=== PATIENT | female | born 1975 | race Caucasian/White ===

== ENCOUNTER 2023-11-13 09:57 | Outpatient (OUT) | payer OTHER, SELFPAY ==
--- NOTE | 2023-11-13 10:09 | MM_ITS ---
Patient Name: YOKASTA BALLESTEROS MR#: [id number] : 1975 Exam Date: 11/13/2023 Ordering Doctor: DR Fareed Rodriges . RADIOLOGY REPORT PROCEDURE: MM TOMOSYNTHESIS SCREENING BI COMPARISON: MG MAMM SCREEN 3D MELQUIADES CAD, 08/27/2022. MG MAMM SCREEN 3D MELQUIADES CAD, 08/17/2021. MG MAMM SCREEN 3D MELQUIADES CAD, 08/16/2020. MG MAMM MELQUIADES DIAG W CAD DIG, 02/05/2008. INDICATIONS: Screening Calculator Name NCI Breast Cancer Risk Assessment Tool 5 Year Breast Cancer Risk 0.80% Lifetime Breast Cancer Risk 8.50% Personal Breast Cancer No Personal Ovarian Cancer No Treatments None Family Cancers None LOCATION: [facility] BREAST COMPOSITION: The breasts are heterogeneously dense,which may obscure small masses. FINDINGS: DIAGNOSTIC CATEGORY 2--BENIGN FINDING: RIGHT BREAST: No significant suspicious finding. Stable, chronic asymmetry within posterior upper-outer quadrant. No significant change has occurred. LEFT BREAST: No significant suspicious finding. No significant change has occurred. RECOMMENDATIONS: ROUTINE MAMMOGRAM AND CLINICAL EVALUATION IN 12 MONTHS. PLEASE NOTE: A NORMAL MAMMOGRAM DOES NOT EXCLUDE THE POSSIBILITY OF BREAST CANCER. A CLINICALLY SUSPICIOUS PALPABLE LUMP SHOULD BE BIOPSIED. Dictated by: Derrell Sheldon M.D. on 11/14/2023 at 09:09 Approved by: Derrell Sheldon M.D. on 11/14/2023 at 09:15
== END 2023-11-13 09:58 | disposition home or self-care (01) ==
LOC: MAMMO 10:05
PROVIDERS: PCP Family Medicine; Visit Provider Obstetrics & Gynecology
DX: Z01.419 Encounter for gynecological examination (general) (routine) without abnormal findings (principal); Z12.31 Encounter for screening mammogram for malignant neoplasm of breast
CPT/HCPCS: 77063; 77067; 87624; 88175

== ENCOUNTER 2023-11-13 19:39 | Outpatient (REF) | payer OTHER, SELFPAY | END 2023-11-13 19:40 | disposition home or self-care (01) | LOC: LAB 19:39 | PROVIDERS: PCP Family Medicine; Visit Provider Obstetrics & Gynecology | DX: Z01.419 Encounter for gynecological examination (general) (routine) without abnormal findings (principal) | CPT/HCPCS: 87624; 88175 ==

== ENCOUNTER 2024-12-09 15:00 | Outpatient (REF) | payer OTHER, SELFPAY ==
--- OUTSIDE RECORDS SUMMARY | 2024-12-02 20:55 | XMS_ITS | Continuity of Care Document ---
Author Organization [facility] Address [address] [place] [address] Phone Care Team Providers Care Provider Relations Rep Name Role Phone Al Bowie MD Primary Care Provider [phone] Self, Referral Attending Provider Unavailable Care Teams Patient Care Team Team Status: Active Member Role Status Dates Al Bowie MD Primary Care Provider Active Visit Care Team Team Status: Inactive Member Role Status Dates Al Bowie MD Primary Care Provider Active Start: December 02, 2024 End: December 02, 2024 Referral Self Attending Provider Active Start: Paulo avila 2024 End: December 02, 2024 Chief Complaint and Reason for Visit Chief Complaint Admit Date Screening December 02, 2024 9:08a m Allergies, Adverse Reactions, Alerts Allergen Type Severity Reaction Last Updated Verified Status celecoxib Allergy Unknown rash June 29, 2024 11:21am Yes Active meperidine Allergy Unknown rash June 29, 2024 11:21am Yes Active Sulfa (Sulfonamide Antibiotics) Allergy Unknown rash June 29 11:21am Yes Active Social History Smoking Status Status Start Date End Date Date of Observa tion Never smoked tobacco (finding) December 18, 2023 5:55am Observation Status Observation Response Date of Response Legal Sex Female (finding) Sex Assigned At Female 1975 Family History Relationship Condition Age at Onset Recorded Date/T madhu father Arthritis Unknown mother Arthritis Unknown Heart disease Unknown Hypertension Unknown History of heart surgery Unknown Rheumatoid arthritis Unknown Problems Active Problems Medical Problem Onset Date Status Impingement syndrome of right shoulder Unknown Active Right rotator cuff tear Unknown Active Anxiety Unknown Active Internal derangement of right shoulder Unknown Active Varicose veins of both lower extremities Unknown Active Right shoulder pain Unknown Active Medications Medication Status Dose Units Route Directions Qty Days St art Date Stop Date End Date Instructions Adherence Oxycodone-A cetaminophe n (Percocet) 5-325 mg tablet Discont inued 1 TAB PO EVERY 4-6 HOURS as needed for pain 20 5 December 17, 2023 [facility] 2023 9:05a m Dispense quantity of twenty tablets Z98.890 post op Cephalexin 500 mg capsule Discont inued 500 MG PO Every 8 hours 6 2 December 17, 2023 12:00a m December 24, 2023 9:20a m Ascorbic Acid (Vitamin C) (Vitamin C) 500 mg capsule, extended release Discont inued 500 MG PO Every morning November 27, 2023 12:00a m December 24, 2023 9:20a m Turmeric 400 mg capsule Discont inued 400 MG PO Every morning November 27, 2023 12:00a m [facility] 2023 9:05a m Cholecalcif azra (Vitamin D3) (Vitamin D3) 25 mcg (1,000 unit) tablet Discont inued 25 MCG PO Every morning November 27, 2023 12:00a m December 24, 2023 9:20a m Diclofenac Sodium 75 mg tablet,ari yed release (DR/EC) Discont inued 75 MG PO July 29, 2023 1:00am November 27, 2023 10:00 am Acetaminoph en 500 mg capsule Discont inued 1 CAP PO Every 6 hours August 19, 2023 12:00a m November 27, 2023 10:00 am FreeTextSi capsule as needed Orally every 6 hrs; Note: Source Status: Taking; Provider: Sweetie Burdick ( ) Ibuprofen 600 mg tablet Active 600 MG PO Three times daily as needed for pain August 19, 2023 12:00a m Unknown Diclofenac Sodium 75 mg tablet,ari yed release (DR/EC) Discont inued 75 MG PO Twice daily August 19, 2023 12:00a m November 27, 2023 10:00 am FreeTextSi tablet as needed Orally Twice a day; Note: Source Status: Start; Refills: 2; Provider: Sweetie Lopez Medical Equipment Device Date Implanted Device Details Tendon/ligament bone anchor, bioabsorbable December 18, 2023 JONH: [id number] Issuing Agency: [employer] Device Id: [id number] Expiration Date: 2027-04-25 Lot Number: [id number] Procedures Procedure Date Performed Status MM screening mammo BI w/CAD December 02, 2024 9:11a m completed Relevant Diagnostic Tests and/or Laboratory Data Diagnostic Imaging Reports Author Donell Saleh [facility] Report Date/Time December 02, 2024 10:59 am [facility] [address] [place] [address] Mammography Report Signed Patient: Lissa Zheng MR#: [id number] : 1975 Acct:[id number] Age/Sex: 49 / F Adm Date: 5 Loc: [place] Room: Type: [facility] Attending Dr: Referral Self Ordering Provider: RACHEL,REFERRAL Date of Service: 12/02/24 Procedure(s): MM screening mammo BI w/CAD Accession Number(s): ([id number]) MM/MM screening mammo BI w/CAD: SCREENING Copies to: SELF,REFERRAL Al Bowie MD~ CLINICAL DATA: Screening for malignancy. BILATERAL SCREENING MAMMOGRAMS - FULL FIELD DIGITAL WITH TOMOSYNTHESIS AND CAD Tomosynthesis craniocaudal and mediolateral oblique views of both breasts were obtained using low-dose digital technique. Comparison is made to prior studies from 11/13/2023 and 08/27/2022. This examination was reviewed with the aid of CAD. There are scattered fibroglandular densities. Benign-appearing lymph nodes noted along the right chest wall. Benign-appearing calcifications are present. There is a similar focal asymmetry on the right. There are no dominant masses, typically malignant calcifications or architectural distortion. There has been no significant interval change. MM/MM screening mammo BI w/CAD IMPRESSION: NO MAMMOGRAPHIC EVIDENCE OF MALIGNANCY. ROUTINE FOLLOW-UP IS RECOMMENDED IN ONE YEAR. RESULT CODE: 2 Benign Findings(s) DENSITY CODE: 2 (approximately 25-50% glandular) There are scattered areas of fibroglandular density. FOLLOW UP: 1YR The false-negative rate of mammography is approximately 10-percent. Management of a palpable abnormality must be based on clinical grounds. Patient was entered into a reminder system with a target due date for the next mammogram. Impression dictated by: Donell Saleh M.D. 12/02/2024 10:59 AM Dictation Location: [facility] Dictated By: Donell Saleh II, MD 12/02/24 1054 Signed By: <Electronically signed by Donell Saleh II, MD in OV> 12/02/24 1059 Advance Directives Advance Directive Response Recorded Date/ Time Advance Directives No August 20, 023 6:00pm Insurance Providers Guarantor Lissa Zheng Address [address] [address] Contact Info. Home Phone: Payer Policy Id Subscriber's Name Subscriber Id Effectiv e Date Expiration Date [employer] Claims [id number] Abelardo Zheng [id number] Encounters Encounter Location(s) Arrival/Admit Date Discharge/Depart Date Provider(s) [facility]ed [facility] December 02, 2024 9:08am December 02, 2024 9:09am REFERRAL SELF
--- OUTSIDE RECORDS SUMMARY | 2024-12-08 20:27 | XMS_ITS | Continuity of Care Document ---
Author Name [facility] Organization [facility] Care Team Providers Care Looping Machine Operator Name Role Phone [facility] Unavailable Unavailable Social History Combined list of available smoking, tobacco, and other social history from Department of Defense and Veterans Affairs facilities. Social History Type Response Date Comment Sourc e This section is an empty social history section. [facility]
--- OUTSIDE RECORDS SUMMARY | 2024-12-09 13:00 | XMS_ITS | Encounter Summary ---
Author Organization [facility] Address [address] [place] [address] Care Team Providers Care Meat Packager Name Role Phone Unavailable Primary Care Provider Unavailabl e Reason for Visit * Reason Comments Gynecologic Exam Encounter Details Date Type Department Care Team (Late st Contact Info) Description 12/09/2024 1:00 PM EDT Office Visit [facility] [address] [place] [phone] Eduarda Paul PA [address] [place], [facility] Well woman exam with routine gynecological exam; Breast cancer screening by mammogram; H/O: hysterectomy; Pelvic pain in female; Anxiety, generalized Social History Tobacco Use Types Packs/Day Years Used Date Smoking Tobacco: Never Alcohol Use Standard Drinks/Week Comments Never 0 (1 standard drink = 0.6 oz pure alcohol) Caffeine intake: 2-3 cups per day Comments No Sex and Gender Information Value Date Recorded Sex Assigned at Not on file Legal Sex Female 7:25 PM EDT Gender Identity Not on file Sexual Orientation Not on file documented as of this encounter Last Filed Vital Signs Vital Sign Reading Time Taken Comments Blood Pressure 124/78 12/09/2024 1:14 PM EDT Pulse - - Temperature - - Respiratory Rate - - Oxygen Saturation - - Inhaled Oxygen Concentration - - Weight 111 kg (244 lb) 12/09/2024 1:14 PM EDT Height 165.1 cm (5' 5 ) 12/09/2024 1:14 PM EDT Body Mass Index 40.6 12/09/2024 1:14 PM EDT documented in this encounter Progress Notes * AMELIA Jefferson - 12/09/2024 1:00 PM EDT Reason for Appointment: Patient ID: Lissa Zheng is a 49 y.o. female who presents for Gynecologic Exam Patient presents today for Annual Exam. MEDICATIONS No current outpatient medications ALLERGIES Allergies Allergen Reactions Latex Rash Other Reaction(s): Unknown Cefprozil Other Reaction(s): Unknown Gabapentin Other Reaction(s): Unknown Medroxyprogesterone Other Reaction(s): Unknown Meloxicam Other Reaction(s): Unknown Naproxen Other Reaction(s): Unknown Sulfamethoxazole-Trimethoprim Other Reaction(s): Unknown Sulfur Celecoxib Rash Other Reaction(s): rash, Unknown Meperidine Rash Other Reaction(s): rash Meperidine Hcl Rash Other Reaction(s): Unknown Sulfa Antibiotics Rash Other Reaction(s): rash PROBLEMS Active Ambulatory Problems Diagnosis Date Noted No Active Ambulatory Problems Resolved Ambulatory Problems Diagnosis Date Noted No Resolved Ambulatory Problems Past Medical History: Diagnosis Date Abdominal cramping Anxiety Dysmenorrhea Encounter for preoperative assessment H/O LEEP Menorrhagia Menorrhagia with irregular cycle Obesity (BMI 30-39.9) S/P tubal ligation Superficial phlebitis and thrombophlebitis of right lower extremity Thrombophlebitis of superficial veins of left lower extremity Varicose veins of bilateral lower extremities with pain HISTORY PAST MEDICAL HISTORY SOCIAL HISTORY Past Medical History: Diagnosis Date Abdominal cramping Anxiety Dysmenorrhea Encounter for preoperative assessment H/O LEEP Menorrhagia Menorrhagia with irregular cycle Obesity (BMI 30-39.9) S/P tubal ligation Superficial phlebitis and thrombophlebitis of right lower extremity Thrombophlebitis of superficial veins of left lower extremity Varicose veins of bilateral lower extremities with pain Social History Tobacco Use Smoking status: Never Smokeless tobacco: Not on file Substance Use Topics Alcohol use: Never Comment: Caffeine intake: 2-3 cups per day Drug use: Never FAMILY HISTORY Family History Problem Relation Name Age of Onset Heart disease Mother Diabetes Maternal Grandmother Heart disease Maternal Grandfather Diabetes Paternal Grandmother SURGICAL HISTORY Past Surgical History: Procedure Laterality Date APPENDECTOMY 03/2009 ENDOMETRIAL ABLATION 09/2020 EVLT Left 07/2020 HYSTERECTOMY 09/27/2022 KNEE SURGERY Left 2007 OTHER SURGICAL HISTORY Left 2003 metal danette in L arm OTHER SURGICAL HISTORY Bilateral 08/2020 Varithena/microfoam chemical ablation TUBAL LIGATION 2017 REVIEW OF SYSTEMS Review of Systems: Review of Systems Constitutional: Negative. HENT: Negative. Eyes: Negative. Respiratory: Negative. Cardiovascular: Negative. Gastrointestinal: Negative. Genitourinary: Negative. Musculoskeletal: Negative. Skin: Negative. Neurological: Negative. All other systems reviewed and are negative. Hematological: Negative. Endocrine: Negative. Allergic/Immunologic: Negative. OBJECTIVE Objective: Physical Exam Constitutional: Appearance: Normal appearance. She is well-developed. Genitourinary: Vulva normal. Right Adnexa: not tender and no mass present. Left Adnexa: not tender and no mass present. No cervical discharge. Breasts: Breasts are soft. Right: Normal. Left: Normal. HENT: Head: Normocephalic. Nose: Nose normal. Mouth/Throat: Mouth: Mucous membranes are moist. Cardiovascular: Rate and Rhythm: Normal rate and regular rhythm. Pulmonary: Effort: Pulmonary effort is normal. Breath sounds: Normal breath sounds. Abdominal: General: Bowel sounds are normal. There is no distension. Palpations: Abdomen is soft. Tenderness: There is no abdominal tenderness. There is no guarding or rebound. Musculoskeletal: General: No swelling. Normal range of motion. Cervical back: Normal range of motion. Right lower leg: No edema. Left lower leg: No edema. Neurological: General: No focal deficit present. Mental Status: She is alert and oriented to person, place, and time. Skin: General: Skin is warm and dry. Psychiatric: Mood and Affect: Mood normal. Behavior: Behavior normal. Vitals and nursing note reviewed. Exam conducted with a wood shop teacher present. Vitals: Estimated body mass index is 40.6 kg/m² as calculated from the following: Height as of this encounter: 5' 5 . Weight as of this encounter: 244 lb. BP: 124/78 No LMP recorded (lmp unknown). Patient has had a hysterectomy. ASSESSMENT & PLAN ICD-10-CM 1. Well woman exam with routine gynecological exam Z01.419 THIN PREP TIS PAP AND HR HPV DNA 2. Breast cancer screening by mammogram Z12.31 CANCELED: Bilateral screening mammogram CANCELED: Bilateral screening mammogram 3. H/O: hysterectomy Z90.710 Annual: Patient presents today for an annual exam. Patient states she is doing well and has complaints of vaginal pressure. Symptoms are constant. Urology told her to come see us.Pt has had hysterectomy 09/26/2022. Pt has not had a colonoscopy. Recommended that pt should get that done to see if it is gastro related. Pt wondering if she is going through menopausal. Pap was obtained without difficulty and patient had her mammogram done on 12/02/2024 with negative results. Patient complains of intermittent cramping muscle spasm pain to lower pelvic region, she has history of several abdominal surgeries including hysterectomy, appendectomy and bladder tumor excision. Patients pain is not reproducible today. We will order US of abdomen for pelvic pain and pt will follow up with Dr Rodriges for possible dx lap and lyse of adhesions. Patient also experiencing grief and depression and also some vasomotor symptoms including difficulty sleeping and concentrating, hormone replacement was discussed as well as trying ssri, celexa. Pt allergic to sulfa so effexor was not started. Patient agrees wit plan of care and will follow up inceUS complete No orders of the defined types were placed in this encounter. Follow Up: Patient is to return in one year for annual unless needed otherwise. Documented by Enid Laughlin MA on behalf of: AMELIA Jefferson documented in this encounter Plan of Treatment Upcoming Encounters Date Type Department Care Team (Late st Contact Info) Description 12/13/2025 2:00 PM EDT Procedure Visit [facility] [address] [place] [phone] Eduarda Paul PA [address] [place] [address] Scheduled Orders Name Type Priority Associated Diagnoses Orde r Schedule THIN PREP TIS PAP AND HR HPV DNA Pathology and Cytology Routine Well woman exam with routine gynecological exam Ordered: 12/09/2024 US Pelvis w/ TV Imaging Routine Pelvic pain in female Expected: 12/09/2024, Expires: 06/11/2025 documented as of this encounter Visit Diagnoses Diagnosis Well woman exam with routine gynecological exam Routine gynecological examination Breast cancer screening by mammogram H/O: hysterectomy Acquired absence of both cervix and uterus Pelvic pain in female Unspecified symptom associated with female genital organs Anxiety, generalized documented in this encounter
--- OUTSIDE RECORDS SUMMARY | 2024-12-09 15:03 | XMS_ITS | Encounter Summary ---
Author Organization [facility] Address [address] [place] [address] Care Team Providers Care Apple Turner Name Role Phone Unavailable Primary Care Provider Unavailabl e Encounter Details Date Type Department Care Team (Late st Contact Info) Description 12/09/2024 Bamboo flowsheet [facility] [address] [facility] [place] [address] Eduarda Paul PA [address] [place] [address] [place], [place] [address] Social History Tobacco Use Types Packs/Day Years [...] on file documented as of this encounter Plan of Treatment Upcoming Encounters Date Type Department Care Team (Late st Contact Info) Description 12/13/2025 2:00 PM EDT Procedure Visit [facility] [address] [facility] [place] [address] Eduarda Paul PA [address] [place], [facility]11 documented as of this encounter Visit Diagnoses Not on filedocumented in this encounter
--- OUTSIDE RECORDS SUMMARY | 2024-12-09 15:04 | XMS_ITS | Encounter Summary ---
Author Organization [facility] Address [address] [place] [address] Care Team Providers Care Well Servicing Rig Operator Name Role Phone Unavailable Primary Care Provider Unavailabl e Encounter Details Date Type Department Care Team (Late st Contact Info) Description 11/19/2023 Orders Only [facility] [address] [place] [address] Bibiana Lombardo LPN [address] [facility] [address] [place] [address] Social History Tobacco Use Types Packs/Day Years Used Date Smoking Tobacco: Never Alcohol Use Standard Drinks/Week Comments Never 0 (1 standard drink = 0.6 oz pure alcohol) Caffeine intake: 2-3 cups per day Comments Unknown Sex and Gender Information Value Date Recorded Sex Assigned at Not on file Legal Sex Female 7:25 PM EDT Gender Identity Not on file Sexual Orientation Not on file documented as of this encounter Plan of Treatment Upcoming Encounters Date Type Department Care Team (Late st Contact Info) Description 12/13/2025 2:00 PM EDT Procedure Visit [facility] [address] [place] [address] Eduarda Paul PA [address] [facility] [address] [place], [facility]11 documented as of this encounter Procedures Procedure Name Priority Date/Time Associated Diagnosis Comments PAP SMEAR Routine 11/13/2023 12:00 AM EDT documented in this encounter Results * Pap Smear (11/13/2023 12:00 AM EDT) Swab Cervical swab / Unknown us Zahira Nurse [facility] LAB CYTOLOGY ORDERABLES Final Result EXTERNAL LAB documented in this encounter Visit Diagnoses Not on filedocumented in this encounter
--- OUTSIDE RECORDS SUMMARY | 2024-12-09 15:04 | XMS_ITS | Clinical Summary ---
Author Organization [facility] Address [address] [place] [address] Care Team Providers Care Channel Program Manager Name Role Phone Unavailable Primary Care Provider Unavailabl e Allergies Active Allergy Reactions Criticality Noted Date Comments Cefprozil 12/09/2024 Other Reaction(s): Unknown Celecoxib Rash Low 08/29/2020 Other Reaction(s): rash, Unknown Gabapentin 11/13/2023 Other Reaction(s): Unknown Latex Rash High 11/09/2022 Other Reaction(s): Unknown Medroxyprogesterone 11/13/2023 Other Reaction(s): Unknown Meloxicam 12/09/2024 Other Reaction(s): Unknown Meperidine Rash Low 08/29/2020 Other Reaction(s): rash Meperidine Hcl Rash Low 12/09/2024 Other Reaction(s): Unknown Naproxen 12/09/2024 Other Reaction(s): Unknown Sulfa Antibiotics Rash Low 11/09/2022 Other Reaction(s): rash Sulfamethoxazole-Trimethoprim 2024 Other Reaction(s): Unknown Sulfur 08/29/2020 Medications citalopram (CeleXA) 20 MG tabletIndication s:Anxiety, generalized Take 1 tablet (20 mg) by mouth Daily 30 tablet 11 5 12/10/19 26 Active omeprazole (PriLOSEC) [address] capsule Take 20 mg by mouth in the morning. Take before meals. 3 12/10/19 25 Discontinu ed(Therapy completed) cephalexin (Keflex) 500 MG capsule Take 500 mg by mouth in the morning and 500 mg before bedtime. 3 12/10/19 Discontinu ed(Therapy completed) solifenacin (VESIcare) 10 MG tablet Take 10 mg by mouth in the morning. 3 12/10/19 Discontinu ed(Therapy completed) diclofenac (Voltaren) 75 MG EC tablet Twice daily 4 12/10/19 Discontinu ed(Therapy completed) Encounters Date Type Department Care Team Description 12/09/2024 1:00 PM EDT Office Visit [facility] [address] [place] [address] Eduarda Paul PA Well woman exam with routine gynecological exam; Breast cancer screening by mammogram; H/O: hysterectomy; Pelvic pain in female; Anxiety, generalized 12/09/2024 Bamboo flowsheet [facility] [address] [address] Eduarda Paul PA from Last 3 Months Family History Medical History Relation Name Comments Heart disease Maternal Grandfather Diabetes Maternal Grandmother Heart disease Mother Diabetes Paternal Grandmother Relation Name Status Comments Maternal Grandfather Maternal Grandmother Mother Paternal Grandmother Social History Tobacco Use Types Packs/Day Years Used Date Smoking Tobacco: Never Tobacco Cessation:Counseling Given: Not Answered Alcohol Use Standard Drinks/Week Comments Never 0 (1 standard drink = 0.6 oz pure alcohol) Caffeine intake: 2-3 cups per day Comments No Sex and Gender Information Value Date Recorded Sex Assigned at Not on file Legal Sex Female 7:25 PM EDT Gender Identity Not on file Sexual Orientation Not on file Last Filed Vital Signs Vital Sign Reading Time Taken Comments Blood Pressure 124/78 12/09/2024 1:14 PM EDT Pulse - - Temperature - - Respiratory Rate - - Oxygen Saturation - - Inhaled Oxygen Concentration - - Weight 111 kg (244 lb) 12/09/2024 1:14 PM EDT Height 165.1 cm (5' 5 ) 12/09/2024 1:14 PM EDT Body Mass Index 40.6 12/09/2024 1:14 PM EDT Plan of Treatment Upcoming Encounters Date Type Department Care Team (Late st Contact Info) Description 12/13/2025 2:00 PM EDT Procedure Visit [facility] [address] [place] [id number] Eduarda Paul PA [address] [facility] [address] [facility] [address] [place], [place] [id number] Insurance [employer]
--- OUTSIDE RECORDS SUMMARY | 2024-12-09 15:04 | XMS_ITS | Encounter Summary ---
Author Organization [facility] Address [address] [place] [address] Care Team Providers Care Envelope Maker Name Role Phone Unavailable Primary Care Provider Unavailabl e Encounter Details Date Type Department Care Team (Late st Contact Info) Description 11/09/2022 Abstract [facility] [address] [place] [address] Fareed Rodriges DO [address] [place], [facility] Social History Tobacco Use Types Packs/Day Years Used Date Smoking Tobacco: Never Assessed Comments Unknown Sex and Gender Information Value Date Recorded Sex Assigned at Not on file Legal Sex Female 7:25 PM EDT Gender Identity Not on file Sexual Orientation Not on file documented as of this encounter Plan of Treatment Upcoming Encounters Date Type Department Care Team (Late st Contact Info) Description 12/13/2025 2:00 PM EDT Procedure Visit [facility] [address] [place] [address] Eduarda Paul PA [address] [place], [facility] documented as of this encounter Visit Diagnoses Not on filedocumented in this encounter
--- OUTSIDE RECORDS SUMMARY | 2024-12-09 15:04 | XMS_ITS | Encounter Summary ---
Author Organization [facility] Address [address] [place] [address] Care Team Providers Care Engineer Internship Name Role Phone Unavailable Primary Care Provider Unavailabl e Encounter Details Date Type Department Care Team (Late st Contact Info) Description 11/14/2023 Clinisync Result Encounter [facility] Unsolicited Fareed Rodriges DO [address] [place], [place] [address] Social History Tobacco Use Types Packs/Day Years [...] EDT Procedure Visit [facility] [address] [place] [phone] Eduarda Paul PA [address] [place], [place] [address] documented as of this encounter Procedures Procedure Name Priority Date/Time Associated Diagnosis Comments MM TOMOSYNTHESIS SCREENING BI 11/14/2023 9:15 AM EDT documented in this encounter Results * MM TOMOSYNTHESIS SCREENING BI (11/14/2023 9:15 AM EDT) Anatomical Region Laterality Modality Other 11/14/2023 9:15 AM EDT Narrative 11/14/2023 9:16 AM EDT [address] [address] Mammography Report Signed Patient: LISSA BALLESTEROS MR#: [id number] : 1975 Acct:[id number] Age/Sex: 48 / F ADM Date: 11/13/23 Loc: MAMMO Attending Dr: Fareed Rodriges D.O. Ordering Physician: Fareed Rodriges D.O. Results: Date of Service: 11/13/23 Follow Up: Procedure(s): MM tomosynthesis screening BI Accession Number(s): [id number] cc: Fareed Rodriges D.O.; PREMA HOGAN Patient Name: LISSA BALLESTEROS MR#: [id number] : 1975 Exam Date: 11/13/2023 Ordering Doctor: DR Fareed Rodriges . RADIOLOGY REPORT PROCEDURE: MM TOMOSYNTHESIS SCREENING BI COMPARISON: MG MAMM SCREEN 3D [place]EL[place]ES CAD, 08/27/2022. MG MAMM SCREEN 3D [place] CAD, 08/17/2021. MG MAMM SCREEN 3D [place] CAD, 08/16/2020. MG MAMM MELQUIADES DIAG W CAD DIG, 02/05/2008. INDICATIONS: Screening Calculator Name NCI Breast Cancer Risk Assessment Tool 5 Year Breast Cancer Risk 0.80% Lifetime Breast Cancer Risk 8.50% Personal Breast Cancer No Personal Ovarian Cancer No Treatments None Family Cancers None LOCATION: [facility] BREAST COMPOSITION: The breasts are heterogeneously dense,which may obscure small masses. FINDINGS: DIAGNOSTIC CATEGORY 2--BENIGN FINDING: RIGHT BREAST: No significant suspicious finding. Stable, chronic asymmetry within posterior upper-outer quadrant. No significant change has occurred. LEFT BREAST: No significant suspicious finding. No significant change has occurred. RECOMMENDATIONS: ROUTINE MAMMOGRAM AND CLINICAL EVALUATION IN 12 MONTHS. PLEASE NOTE: A NORMAL MAMMOGRAM DOES NOT EXCLUDE THE POSSIBILITY OF BREAST CANCER. A CLINICALLY SUSPICIOUS PALPABLE LUMP SHOULD BE BIOPSIED. Dictated by: Derrell Sheldon M.D. on 11/14/2023 at 09:09 Approved by: Derrell Sheldon M.D. on 11/14/2023 at 09:15 Dictated By: Derrell Shledon M.D. Signed By: 11/14/23915 DD/ 4 TD/TT: Rn Wound: Procedure Note Radiology, Radiologist, MD - 11/14/2023 [place] [address] Mammography Report Signed Patient: LISSA BALLESTEROS LMR#: [id number] : 1975Acct:[id number] Age/Sex: 48 / FADM Date: 11/13/23 Loc: MAMMO Attending Dr: Fareed Rodriges D.O. Ordering Physician: Fareed Rodriges D.O.Results: Date of Service: 11/13/23Follow Up: Procedure(s): MM tomosynthesis screening BI Accession Number(s): [id number] cc: Fareed Rodriges D.O.; PREMA HOGAN Patient Name: LISSA BALLESTEROS MR#: [id number] : 1975 Exam Date: 11/13/2023 Ordering Doctor: DR Fareed Rodriges . RADIOLOGY REPORT PROCEDURE: MM TOMOSYNTHESIS SCREENING BI COMPARISON: MG MAMM SCREEN 3D [place] CAD, 08/27/2022. MG MAMM SCREEN 3DBIL CAD, 08/17/2021. MG MAMM SCREEN 3D [place]ES CAD, 08/16/2020. MG MAMM MELQUIADES DIAG WCAD DIG, 02/05/2008. INDICATIONS: Screening Calculator Name NCI Breast Cancer Risk Assessment Tool 5 Year Breast Cancer Risk 0.80% Lifetime Breast Cancer Risk 8.50% Personal Breast Cancer No Personal Ovarian Cancer No Treatments None Family Cancers None LOCATION: [facility] BREAST COMPOSITION: The breasts are heterogeneously dense,which may obscure small masses. FINDINGS: DIAGNOSTIC CATEGORY 2--BENIGN FINDING: RIGHT BREAST: No significant suspicious finding. Stable, chronicasymmetry within posterior upper-outer quadrant. No significant change hasoccurred. LEFT BREAST: No significant suspicious finding. No significant changehas occurred. RECOMMENDATIONS: ROUTINE MAMMOGRAM AND CLINICAL EVALUATION IN 12 MONTHS. PLEASE NOTE: A NORMAL MAMMOGRAM DOES NOT EXCLUDE THE POSSIBILITY OFBREAST CANCER. A CLINICALLY SUSPICIOUS PALPABLE LUMP SHOULD BE BIOPSIED. Dictated by: Derrell Sheldon M.D. on 11/14/2023 at 09:09 Approved by: Derrell Sheldon M.D. on 11/14/2023 at 09:15 Dictated By: Derrell Sheldon M.D. Signed By:11/14/23915 DD/ 4 TD/TT: Rn Wound: us Fareed Zahira DO [facility] Final Result documented in this encounter Visit Diagnoses Not on filedocumented in this encounter
--- OUTSIDE RECORDS SUMMARY | 2024-12-09 17:57 | XMS_ITS | CCD ---
Author Organization [facility] Care Team Providers Care Emergency Planning And Response Manager Name Role Phone Breanna Phillip Unavailable Janna Berger Unavailable MD Janna Berger Attending Provider NO FAMILY, PHYSICIAN Primary Care Provider Unava ilable ZULEMA ., DR ESPINAL Consulting Unavailable ZULEMA ., DR ESPINAL Attending Unavailable [facility], PHILLIP Primary Care Unavailable ZULEMA ., DR ESPINAL Admitting Unavailable ZIEBER, DR LANE Manuel Consulting Unavailable ZULEMA ., DR ESPINAL Consulting Unavailable ZULEMA ., DR ESPINAL Attending Unavailable [facility], PHILLIP Primary Care Unavailable ZULEMA ., DR ESPINAL Admitting Unavailable [place], PHILLIP Primary Care Unavailable ZULEMA ., DR ESPINAL Consulting Unavailable ZULEMA ., DR ESPINAL Attending Unavailable ZULEMA ., DR ESPINAL Admitting Unavailable ZULEMA ., DR ESPINAL Consulting Unavailable ZULEMA ., DR ESPINAL Attending Unavailable [place], PHILLIP Primary Care Unavailable ZULEMA ., DR ESPINAL Admitting Unavailable MARY PERERA Consulting Unavailable IRENE OCAMPO Consulting Unavailable ZULEMA ., DR ESPINAL Consulting Unavailable ZULEMA ., DR ESPINAL Attending Unavailable [place], PHILLIP Primary Care Unavailable ZULEMA ., DR ESPINAL Admitting Unavailable ZULEMA ., DR ESPINAL Consulting Unavailable ZULEMA ., DR ESPINAL Attending Unavailable ZULEMA ., DR ESPINAL Admitting Unavailable [facility], PHILLIP Primary Care Unavailable Al Bowie Primary Care Physician NO FAMILY, PHYSICIAN Primary Care Provider Unava ilable MD Janna Berger Attending Provider Heavenly Pitt Unavailable MD Al Bowie Primary Care Provider [phone] MD Janna Berger Attending Provider MD Al Bowie Primary Care Provider [phone] MD Al Bowie Primary Care Provider [phone] MD Janna Berger Attending Provider [phone] Unavailable [facility] Care Provider [phone] MD Janna Berger Attending Provider FAREED RODRIGES Attending Unavailable HALLEY THAO Attending Unavailable OLEXA, JANNA Referring Unavailable MAHESH, ANISH Attending Unavailable OLEXA, JANNA Referring Unavailable HALLEY THAO Attending Unavailable UNALLOCATED, NOMS PROVIDER Referring Unava ilable BRINK, TONYA Attending Unavailable OLEXA, JANNA Referring Unavailable BRINK, TONYA Attending Unavailable UNALLOCATED, NOMS PROVIDER Referring Unava ilable BRINK, TONYA Attending Unavailable UNALLOCATED, NOMS PROVIDER Referring Unava ilable BRINK, TONYA Attending Unavailable OLEXA, JANNA Referring Unavailable BRINK, TONYA Attending Unavailable OLEXA, JANNA Referring Unavailable BRINK, TONYA Attending Unavailable OLEXA, JANNA Referring Unavailable BRINK, TONYA Attending Unavailable OLEXA, JANNA Referring Unavailable HALLEY THAO Attending Unavailable OLEXA, JANNA Referring Unavailable BRINK, TONYA Attending Unavailable OLEXA, JANNA Referring Unavailable BRINK, TONYA Attending Unavailable OLEXA, JANNA Referring Unavailable BRINK, TONYA Attending Unavailable OLEXA, JANNA Referring Unavailable HALLEY THAO Attending Unavailable OLEXA, JANNA Referring Unavailable ANISH ARAGON Attending Unavailable OLEXA, JANNA Referring Unavailable BRINK, TONYA Attending Unavailable OLEXA, JANNA Referring Unavailable BRINK, TONYA Attending Unavailable OLEXA, JANNA Referring Unavailable ANUJA CRAFT Attending Unavailable OLEXA, JANNA Referring Unavailable HALLEY THAO Attending Unavailable OLEXA, JANNA Referring Unavailable BRINK, TONYA Attending Unavailable OLEXA, JANNA Referring Unavailable BRINK, TONYA Attending Unavailable OLEXA, JANNA Referring Unavailable BRINK, TONYA Attending Unavailable OLEXA, JANNA Referring Unavailable BRINK, TONYA Attending Unavailable OLEXA, JANNA Referring Unavailable HALLEY THAO Attending Unavailable OLEXA, JANNA Referring Unavailable BRINK, TONYA Attending Unavailable OLEXA, JANNA Referring Unavailable HALLEY THAO Attending Unavailable OLEXA, JANNA Referring Unavailable BRTONYA MONTOYA Attending Unavailable OLEXA, JANNA Referring Unavailable BRINK, TONYA Attending Unavailable OLEXA, JANNA Referring Unavailable ANISH ARAGON Attending Unavailable OLEXA, JANNA Referring Unavailable ANISH ARAGON Attending Unavailable OLEXA, JANNA Referring Unavailable BRINK, TONYA Attending Unavailable OLEXA, JANNA Referring Unavailable HALLEY THAO Attending Unavailable OLEXA, JANNA Referring Unavailable ANISH ARAGON Attending Unavailable OLEXA, JANNA Referring Unavailable BRINK, TONYA Attending Unavailable OLEXA, JANNA Referring Unavailable BRINK, TONYA Attending Unavailable OLEXA, JANNA Referring Unavailable KELBLEY, ANUJA Attending Unavailable OLEXA, JANNA Referring Unavailable KELBLEY, ANUJA Attending Unavailable OLEXA, JANNA Referring Unavailable BRINK, TONYA Attending Unavailable OLEXA, JANNA Referring Unavailable Doug MCDANIEL Attending Unavailable Al Bowie MD Primary Care Provider [phone] Self, Referral Attending Provider Unavailable Olexa, Janna Admitting Unavailable Al Bowie Primary Care Unavailable Olexa, Janna Attending Unavailable Self, Referral Attending Unavailable Self, Referral Admitting Unavailable Al Bowie Primary Care Unavailable Olexa, Janna Attending Unavailable Olexa, Janna Admitting Unavailable Al Bowie Primary Care Unavailable Olexa, Janna Attending Unavailable Al Bowie Primary Care Unavailable Olexa, Janna Admitting Unavailable Allergies Allergy Classification Reported Allergen(s) Allergy Type Date of Onset Reaction(s) Facility (20 sources) celecoxib; Translations: [celecoxib] Drug Allergy 08-19-19 24 rash, Unknown (qualifier value) [facility] (20 sources) Meperidine; Translations: [meperidine] Drug Allergy 08-30-19 21 rash, Unknown (qualifier value) [facility] (4 sources) Sulf-10 Drug allergy rash [facility] Other (2 sources) celecoxib; Translations: [CeleBREX] Drug Allergy [facility] (7 sources) Latex; Translations: [Latex] Drug allergy (disorder) 05-23-20 17 Eruption of skin (disorder) [facility] (2 sources) Meperidine; Translations: [Demerol] Drug Allergy [facility] (1 source) Sulfonamides (Antibiotic) Drug allergy (disorder) 03-13-20 13 [facility] (6 sources) cefprozil; Translations: [cefprozil] Drug Allergy Unknown (qualifier value) [facility] (20 sources) gabapentin; Translations: [gabapentin] Drug Allergy 11-13-19 Unknown (qualifier value) [facility] (20 sources) medroxyPROGESTERone ; Translations: [medroxyprogesteron e] Drug Allergy 11-13-19 Unknown (qualifier value) [facility] (6 sources) meloxicam; Translations: [meloxicam] Drug Allergy Unknown (qualifier value) [facility] (8 sources) Sulfamethoxazole / Trimethoprim; Translations: [sulfamethoxazole-t rimethoprim] Drug Allergy 12-10-19 Unknown (qualifier value) [facility] (16 sources) Sulfonamides (Antibiotic); Translations: [Sulfa (Sulfonamide Antibiotics)] Allergy to substance 08-19-19 24 [facility] (20 sources) celecoxib Drug Allergy 08-30-19 [facility] Work Phone: (20 sources) Latex Allergy to substance 11-10-19 [facility] (20 sources) Sulfonamides (Antibiotic) Drug Allergy 11-10-19 23 [facility] (20 sources) Sulfur Drug Allergy 08-30-19 21 [facility] (1 source) Naproxen; Translations: [Aleve] Drug Allergy [facility] (1 source) celecoxib Drug Allergy 06-29-19 [facility] (1 source) Meperidine Drug Allergy 06-29-19 [facility] (2 sources) Cefprozil Allergy to substance 12-10-19 [facility] (2 sources) meloxicam Drug Allergy 12-10-19 [facility] (2 sources) Meperidine Drug Allergy 12-10-19 [facility] (2 sources) Naproxen Drug Allergy 12-10-19 25 [facility] Medications Current Medications Medication Drug Class(es) Dates Sig (Normalized) Sig (Original) cetirizine hydrochloride 10 mg oral tablet (2 sources) Histamine-1 Receptor Antagonist take 1 tablet by mouth at bedtime ZyrTEC Allergy 10 MG 1 tablet Orally HS Active take 1 tablet by mouth at bedtim e ZyrTEC Allergy 10 MG 1 tablet Orally HS Active citalopram 20 mg oral tablet (3 sources) Serotonin Reuptake Inhibitor Start: 12-09-2024 End: 12-09-2025 take 1 tablet by mouth once daily citalopram (CeleXA) 20 MG tablet Indications: Anxiety, generalized Take 1 tablet (20 mg) by mouth Daily 30 tablet 11 12/09/2024 12/09/2025 Active Start: 08-17-2021 take 1 tablet by kaylah th every twenty-four hours Citalopram Hydrobromide 10 MG 1 tablet Orally Once a day for 30 day(s) Jul, Active cyclobenzaprine hydrochloride 10 mg oral tablet (1 source) Muscle Relaxant Start: 08-17-2021 take 1 tablet by mouth every twenty-four hours Cyclobenzaprine HCl 10 MG 1 tablet at bedtime as needed Orally Once a day for 14 days Jul, Active fluticasone propionate 0.05 mg/actuat metered dose nasal spray (2 sources) Corticosteroid take 1 spray(s) nasal route twice daily Fluticasone Propionate 50 MCG/ACT 1 spray in each nostril Nasally Twice a day Active ibuprofen 600 mg oral tablet (17 sources) Nonsteroidal Anti-inflammatory Drug Start: 08-19-2023 take 1 tablet by mouth three times daily as needed for pain take 1 tablet by kaylah th three times daily at mealtime as needed Ibuprofen 600 MG 1 tablet with food or milk as needed Orally Three times a day Active Claritin (2 sources) Start: 10-10-2022 Claritin Daily Start Date: 10/10/22 Status: Ordered phentermine hydrochloride 37.5 mg oral tablet (2 sources) Sympathomimetic Amine Anorectic Start: 05-28-2023 take 1 tablet by mouth once daily phentermine 37.5 mg Tab 37.5 mg = 1 tab(s), Oral, Daily, # 30 tab(s), Refills(s) 2, Pharmacy: [id number], 165, cm, 04/09/23 13:09:00 EST, Height/Length Dosing, 103.2, kg, 04/09/23 13:09:00 EST, Weight Dosing Start Date: 05/28/23 Status: Ordered Quantity: 30.0 Unit: tab(s) Repeat number: 3 24 hr phentermine 7.5 mg / topiramate 46 mg extended release oral capsule (1 source) Sympathomimetic Amine Anorectic Start: 01-08-2023 Qsymia 7.5 mg-46 mg oral capsule, extended release 1 cap(s), Oral, qAM, 30 cap(s), Refill(s) 2, [facility]/pharmacy #[id number], 165, cm, 01/08/23 13:06:00 EDT, Height/Length Dosing, 108.1, kg, 01/08/23 13:06:00 EDT, Weight Dosing Start Date: 01/08/23 Status: Ordered Completed/Discontinued Medications Medication Drug Class(es) Dates Sig (Normalized) Sig (Original) acetaminophen 500 mg oral capsule (17 sources) Start: 08-19-2023 End: 11-27-2023 take 1 capsule by mouth every six hours as needed Acetaminophen 500 mg capsule Discontinued 1 CAP PO Every 6 hours August 19, 2023 12:00am November 27, 2023 10:00am FreeTextSi capsule as needed Orally every 6 hrs; Note: Source Status: Taking; Provider: Sweetie Burdick ( ) take 1 capsule by mouth every si x hours Acetaminophen 500 MG 1 capsule as needed Orally every 6 hrs Active acetaminophen 325 mg / oxyCODONE hydrochloride 5 mg oral tablet (10 sources) Opioid Agonist Start: 12-17-2023 End: 01-28-2024 take 1 tablet by mouth every four to six hours as needed for pain Oxycodone-Acetaminophen (Percocet) 5-325 mg tablet Discontinued 1 TAB PO EVERY 4-6 HOURS as needed for pain 13 10December 17, 2023 January 28, 2024 9:05am Dispense quantity of twenty tablets Z98.890 post op ascorbic acid 500 mg extended release oral capsule (12 sources) Vitamin C Start: 11-27-2023 End: 12-24-2023 take 1 capsule by mouth once daily in the morning Ascorbic Acid (Vitamin C) (Vitamin C) 500 mg capsule, extended release Discontinued 500 MG PO Every morning November 27, 2023 12:00am December 24, 2023 9:20am cephalexin 500 mg oral capsule (20 sources) Cephalosporin Antibacterial Start: 10-26-2022 End: 12-09-2024 take 1 capsule by mouth in the morning cephalexin (Keflex) 500 MG capsule Take 500 mg by mouth in the morning and 500 mg before bedtime. 10/26/2022 12/09/2024 Discontinued (Therapy completed) cholecalciferol 0.025 mg oral tablet (12 sources) Vitamin D Start: 11-27-2023 End: 12-24-2023 take 1 tablet by mouth once daily in the morning Cholecalciferol (Vitamin D3) (Vitamin D3) 25 mcg (1,000 unit) tablet Discontinued 25 MCG PO Every morning November 27, 2023 12:00am December 24, 2023 9:20am ciprofloxacin 500 mg oral tablet (2 sources) Quinolone Antimicrobial Start: 10-13-2024 take 1 tablet by mouth once daily Cipro 500 mg Tab 500 mg = 1 tab(s), Oral, Daily, Take 1 tablet the day before the procedure and 1 tablet after the procedure, # 2 tab(s), Refills(s) 0, Pharmacy: [facility]/pharmacy #[id number], 165, cm, 06/18/23 14:10:00 EST, Height/Length Dosing, 102.2, kg, 06/18/23 14:10:00 EST, Weight Dosing Start Date: 10/13/24 Status: Ordered Quantity: 2.0 Unit: tab(s) Repeat number: 1 Start: 09-12-2023 take 1 tablet by kaylah th once daily Cipro 500 mg Tab 500 mg = 1 tab(s), Oral, Daily, Take 1 tablet the day before the procedure and 1 tablet after the procedure, # 2 tab(s), Refills(s) 0, Pharmacy: [facility]/pharmacy #[id number], 165, cm, 06/18/23 14:10:00 EST, Height/Length Dosing, 102.2, kg, 06/18/23 14:10:00 EST, Weight Dosing Start Date: 09/12/23 Status: Ordered diclofenac sodium 75 mg delayed release oral tablet (20 sources) Nonsteroidal Anti-inflammatory Drug Start: 07-29-2023 End: 12-09-2024 diclofenac (Voltaren) 75 MG EC tablet Twice daily 07/29/2023 12/09/2024 Discontinued (Therapy completed) Start: 05-09-2023 take 1 tablet by kaylah th every twelve hours Diclofenac Sodium 75 MG 1 tablet as needed Orally Twice a day for 30 days Apr, Active omeprazole 20 mg delayed release oral capsule (20 sources) Proton Pump Inhibitor Start: 10-09-2022 End: 12-09-2024 take 1 capsule by mouth before mealtime omeprazole (PriLOSEC) [address] capsule Take 20 mg by mouth in the morning. Take before meals. 10/09/2022 12/09/2024 Discontinued (Therapy completed) solifenacin succinate 10 mg oral tablet (20 sources) Cholinergic Muscarinic Antagonist Start: 10-26-2022 End: 12-09-2024 take 1 tablet by mouth in the morning solifenacin (VESIcare) 10 MG tablet Take 10 mg by mouth in the morning. 10/26/2022 12/09/2024 Discontinued (Therapy completed) triamcinolone acetonide 40 mg/ml injectable suspension (4 sources) Corticosteroid Start: 08-20-2022 Kenalog-40 Apr, 40 mg Turmeric extract (12 sources) Start: 11-27-2023 End: 01-28-2024 take 1 capsule by mouth once daily in the morning Turmeric 400 mg capsule Discontinued 400 MG PO Every morning November 27, 2023 12:00am January 28, 2024 9:05am Start: 11-27-2023 End: 01-28-2024 take 1 capsule by mouth once daily in the morning Turmeric 400 mg capsule Discontinued 400 MG PO Every morning November 26, 2023 11:00pm January 28, 2024 8:05am Start: 11-27-2023 End: 01-28-2024 take 400 mg by mouth once daily in the morning Turmeric Discontinued 400 MG PO Every morning November 27, 2023 12:00am January 28, 2024 9:05am Start: 11-27-2023 take 400 mg by mouth once daily in the morning Turmeric Active 400 MG PO Every morning November 27, 2023 12:00am Problems Active Problems Problem Classification Problem Date Documented Date Episodic/Chronic Abdominal hernia (5 sources) Hiatal hernia 10-09-2022 Episodic Abdominal pain (3 sources) Pelvic and perineal pain; Translations: [Pain in female pelvis] Onset: 10-04-2022 5 Episodic Adjustment disorders (1 source) Adjustment disorder, unspecified Onset: 08-17-2021 Resolved: 08-17-2021 Chronic Anxiety disorders (20 sources) Anxiety; Translations: [Anxiety disorder, unspecified] Onset: 09-14-2021 Resolved: 09-14-2021 Chronic Esophageal disorders (5 sources) Gastroesophageal reflux disease 10-09-2022 Chronic Headache; including migraine (5 sources) Refractory migraine 10-09-2022 Chronic Malaise and fatigue (4 sources) Fatigue; Translations: [Other fatigue] Episodic Menstrual disorders (14 sources) Dysmenorrhea; Translations: [Dysmenorrhea, unspecified] Onset: 08-27-2022 Chronic Neoplasms of unspecified nature or uncertain behavior (8 sources) Neoplasm of unspecified behavior of bladder; Translations: [Neoplasm of bladder] Onset: 10-04-2022 Episodic Osteoarthritis (6 sources) Primary osteoarthritis, unspecified elbow; Translations: [Osteoarthritis of knee] Onset: 08-17-2021 Resolved: 08-17-2021 Chronic Other connective tissue disease (3 sources) Pain in limb; Translations: [Pain in left arm] Episodic Other connective tissue disease (1 source) Other enthesopathies, not elsewhere classified Episodic Other connective tissue disease (20 sources) Impingement syndrome of right shoulder; Translations: [Other affections of shoulder region, not elsewhere classified] Episodic Other connective tissue disease (14 sources) Impingement syndrome of shoulder region; Translations: [Impingement syndrome of right shoulder] 08-16-2023 Episodic Other connective tissue disease (20 sources) Tear of right rotator cuff; Translations: [Unspecified rotator cuff tear or rupture of right shoulder, not specified as traumatic] 10-01-2023 Episodic Other connective tissue disease (20 sources) Unspecified rotator cuff tear or rupture of right shoulder, not specified as traumatic; Translations: [Rotator cuff (capsule) sprain] 10-01-2023 Episodic Other connective tissue disease (1 source) Impingement syndrome of right shoulder region; Translations: [Impingement syndrome of right shoulder] 08-16-2023 Episodic Other female genital disorders (1 source) Unspecified dyspareunia; Translations: [UNSPECIFIED DYSPAREUNIA] Onset: 10-04-2022 Chronic Other nervous system disorders (5 sources) Carpal tunnel syndrome 10-09-2022 Chronic Other non-traumatic joint disorders (15 sources) Derangement of right shoulder joint; Translations: [Other specific joint derangements of right shoulder, not elsewhere classified] 08-19-2023 Chronic Other non-traumatic joint disorders (3 sources) Other specific joint derangements of right shoulder, not elsewhere classified; Translations: [Other specified disorders of joint, shoulder region] 08-19-2023 Chronic Other non-traumatic joint disorders (1 source) Pain in left shoulder Episodic Other non-traumatic joint disorders (20 sources) Pain in right shoulder; Translations: [Right shoulder pain] Episodic Other nutritional; endocrine; and metabolic disorders (4 sources) Obesity; Translations: [Obesity, unspecified] Chronic Other nutritional; endocrine; and metabolic disorders (1 source) Obesity, unspecified; Translations: [OBESITY UNSPECIFIED] Onset: 10-04-2022 Chronic Other nutritional; endocrine; and metabolic disorders (1 source) Body mass index (BMI) 40.0-44.9, adult; Translations: [BODY MASS INDEX BMI 40.0-44.9 ADULT] Onset: 10-04-2022 Chronic Other nutritional; endocrine; and metabolic disorders (5 sources) Metabolic syndrome X 10-09-2022 Chronic Other nutritional; endocrine; and metabolic disorders (3 sources) Calorie overload 01-08-2023 Chronic Other screening for suspected conditions (not mental disorders or infectious disease) (7 sources) Encounter for screening mammogram for malignant neoplasm of breast; Translations: [Encounter for screening for malignant neoplasm of cervix] Onset: 08-07-2022 Episodic Other upper respiratory disease (3 sources) Seasonal allergy; Translations: [Other seasonal allergic rhinitis] Chronic Other upper respiratory disease (1 source) Other seasonal allergic rhinitis Onset: 09-14-2021 Resolved: 09-14-2021 Chronic Otitis media and related conditions (4 sources) Chronic allergic otitis media; Translations: [Chronic allergic otitis media, unspecified ear] Chronic Otitis media and related conditions (8 sources) Otitis media; Translations: [Otitis media, unspecified, unspecified ear] Episodic Ovarian cyst (1 source) Unspecified ovarian cyst, left side; Translations: [UNSPECIFIED OVARIAN CYST LEFT SIDE] Onset: 08-31-2022 Episodic Residual codes; unclassified (16 sources) Other specified postprocedural states; Translations: [Other postprocedural status] 12-24-2023 Episodic Unclassified (3 sources) Patient encounter status 01-08-2023 Unclassified (2 sources) Varicose vein of calf 06-18-2023 Varicose veins of lower extremity (20 sources) Varicose veins of lower extremity; Translations: [Asymptomatic varicose veins of bilateral lower extremities] 07-29-2023 Episodic Past or Other Problems Problem Classification Problem Date Documented Da te Episodic/Chronic Other connective tissue disease (1 source) Pain in left arm Onset: 09-14-2021 Resolved: 09-14-2021 Episodic Other connective tissue disease (1 source) Complete rotator cuff tear or rupture of right shoulder, not specified as traumatic; Translations: [Complete rotator cuff tear or rupture of right shoulder, not specified as traumatic] Onset: 12-18-2023 Episodic Results Test Name Value Interpretation Reference Range Facility MM screening mammo BI w/CADo n 12-02-2024 MM screening mammo BI w/CAD [facility] [address] [place] [address] Mammography Report Signed Patient: Yokasta Zheng MR#: [id number] : 1975 Acct:[id number] Age/Sex: 49 / F Adm Date: 12/02/24 Loc: [place] Room: Type: [facility] Attending Dr: Referral Self Ordering Provider: RACHELREFERRAL Date of Service: 12/02/24 Procedure(s): MM screening mammo BI w/CAD Accession Number(s): ([id number]) MM/MM screening mammo BI w/CAD: SCREENING Copies to: SELF,REFERRAL Al Bowie MD CLINICAL DATA: Screening for malignancy. BILATERAL SCREENING MAMMOGRAMS - FULL FIELD DIGITAL WITH TOMOSYNTHESIS AND CAD Tomosynthesis craniocaudal and mediolateral oblique views of both breasts were obtained using low- dose digital technique. Comparison is made to prior [...] Saleh M.D. 12/02/2024 10:59 AM Dictation Location: [facility] Dictated By: Donell Saleh II, MD 12/02/241053 Signed By: 12/02/24 105 Normal [facility] Mammography reportOrdered By : Donell Saleh on 12-02-2024 Diagnostic imaging study [facility] [address] [place] [address] Mammography Report Signed Patient: Yokasta Zheng MR#: [id number] : 1975 Acct:[id number] Age/Sex: 49 / F Adm Date: 5 Loc: [place] Room: Type: [facility] Attending Dr: Referral Rachel Ordering Provider: SELF,REFERRAL Date of Service: 12/02/24 Procedure(s): MM screening mammo BI w/CAD Accession Number(s): ([id number]) MM/MM screening mammo BI w/CAD: SCREENING Copies [...] Saleh M.D. 12/02/2024 10:59 AM Dictation Location: [facility] Dictated By: Donell Saleh II, MD 12/02/241053 Signed By: 12/02/241058 [facility] Work Phone: Ambulatory Visit Summaryon 0 11-18-2024 Ambulatory Visit Summary Ambulatory Visi t Summary YOKASTA ZHENG :1975 Visit Date:11/18/2024 Ambulatory Visit Instructions Your Diagnosis Bladder tumor Your Care Team Attending Physician - Doug MCDANIEL MD Primary Care Physician - Al Bowie MD. This Is Your Medications List Contact prescribing physician if questions or concerns ciprofloxacin (Cipro 500 mg Tab) phentermine (phentermine 37.5 mg Tab) Procedures Performed Cystoscopy (11/18/2024), Cystourethroscopy with dilation of urethral stricture (10/29/2023), TURBT - Transurethral resection of bladder tumor (10/18/2022), Appendectomy, Arm fracture, Arthroscopy of knee, Hysterectomy, Tubal ligation. Discharge Vitals Temperature (Temporal Artery) 37 ???C Heart Rate (Peripheral) 78 Respiratory Rate 16 Blood Pressure 136/84 Height 165 cm Height 65 in Weight 110 kg Weight 242.508 lb BMI 40.4 What to do next You Need to Schedule the Following Appointments Follow Up with JESSICA MORENO, Duog Manuel, URJessica When: Only if needed Where: [facility] [address] , [place] [address]- [phone] Medications What How Much When Instructions Unchanged ciprofloxacin (Cipro 500 mg Tab) 1 Tablets By Mouth Every day Take 1 tablet the day before the procedure and 1 tablet after the procedure Contact prescribing physician if questions or concerns Unchanged phentermine (phentermine 37.5 mg Tab) 1 Tablets By Mouth Every day Contact prescribing physician if questions or concerns Medications and Immunizations Administered Given lidocaine Top 2% Gel w/Appl 11 mL, 5.5 mL, Topical. For: Bladder tumor Allergies Latex (Rash) Bactrim (Unknown) Cefzil (Unknown) CeleBREX (Unknown) Demerol (Unknown) Mobic (Unknown) Provera (Unknown) gabapentin (Unknown) Problems Ongoing - Any problem that you are currently receiving treatment for. Bladder tumor Carpal tunnel syndrome Excessive dietary caloric intake GERD (gastroesophageal reflux disease) Hiatal hernia Intractable migraine without status migrainosus Metabolic syndrome Morbid obesity with BMI of 40.0-44.9, adult OA (osteoarthritis) of knee Physical exam Varicose veins of calf Patient Survey You may receive a survey via text or e-mail asking about your office visit. Please share your experience with us by completing your survey. We appreciate your feedback and thank you for choosing us for your care. Education Materials Cancer Screening: Female A cancer screening is a test or exam that checks for cancer. Work with your health care provider to create a cancer screening schedule that protects your health. Who should have screening? All females should be considered for screening of certain cancers, including breast cancer, cervical cancer, colorectal cancer, endometrial cancer, lung cancer, and skin cancer. Your health care provider may recommend screenings for other types of cancer if: ??? You have had cancer before. ??? You have a family member with cancer. ??? You have genes that could increase the risk of cancer. ??? You have risk factors for certain cancers, such as current or past use of tobacco products or being overweight. What are the benefits of screening? Cancer screening is done to look for cancer in the very early stages, before it spreads and becomes harder to treat and before you would start to notice symptoms. Finding cancer early improves the chances of successful treatment. It may save your life. When should I be screened for cancer? When you should be screened for cancer depends on: ??? Your age. ??? Your medical history and your family's medical history. ??? Certain lifestyle factors, such as smoking or other use of tobacco products. ??? Environmental exposure, such as to asbestos. How is screening done? Breast cancer Breast cancer screening is done with a test that takes images of breast tissue (mammogram) using an X-ray machine. Here are some screening guidelines for females at average risk: ??? When you are 40???44 years old, you should be given the choice to start having mammograms. ??? When you are 45???54 years old, you should have a mammogram every year. ??? You may start having mammograms before you are 45 years old if you have risk factors for breast cancer, such as having an immediate family member with breast cancer. ??? At 55 years old or older, you should have a mammogram every 1???2 years for as long as you are in good health and have a life expectancy of 10 years or longer. ??? It is important to know what your breasts look and feel like so you can report any changes to your health care provider. Cervical cancer Cervical cancer screening is done with an HPV (human papillomavirus) test to identify the virus that causes cervical cancer. To perform the test, a health care provider takes a swab of cells from the lowest part of the uterus (cer (more content not included)... Normal [facility] Urology Office/Clinic Noteon 11-18-2024 Urology Office/Clinic Note Urology Office/Clinic Note Chief Complaint cystoscopy HPI Staff Cysto ABX TAKEN History of Present Illness Tests reviewed: reviewed op note I have reviewed the previous health record information and history for this patient from Dr. Mcdaniel. I have reviewed and verified the staff HPI to be accurate for this encounter. Review of Systems PHQ Score Initial Depression Screen Score: 0 SCORE ROS - Provider Constitutional: denies weight loss, denies hot flashes. Eyes: denies eye problems. Gastrointestinal: denies nausea, denies vomiting. Cardiovascular: denies chest pain or angina. Integumentary: no dryness Musculoskeletal: denies musculoskeletal symptoms. ENMT: denies otolaryngeal symptoms. Respiratory: no shortness of breath. Heme/Lymph: denies easy bleeding tendency, denies easy bruising tendency. Psychiatric: no confusion, no anxiety. Genitourinary: See HPI. Physical Exam Vitals & Measurements T: 37 ???C(Temporal Artery) HR: 78(Peripheral) RR: 16 BP: 136/84 HT: 165 cm HT: 65 in WT: 110 kg WT: 242.508 lb BMI: 40.4 General Appearance: alert , no acute distress, well nourished, well developed female. Procedure Operative Information Anesthesia Type: Local Procedure: Local Cystoscopy Complications: None Surgical risks, benefits, details of the procedure have been explained to the patient. Full informed consent has been obtained. Intraoperative Information Prepped: Patient is brought back to the endoscopy suite. Patient is placed in modified dorso/lithotomy position. Patient prepped in the usual fashion with Betadine solution. 2% Xylocaine Jelly is placed per Urethra. After waiting several minutes, the Cystoscope is introduced. The Urethra is: Normal The Bladder: No tumors, stones, or lesions. , Trabeculated: Moderate (2). No EVA, no A.V., no prolapse. The Ureteral orifices: Show efflux of clear urine Specimens Removed: None Removal: Cystoscope is removed. The patient tolerated it well. Postoperative Information Patient is discharged home with antibiotic coverage. Follow up arranged. Assessment/Plan Originally referred by Dr. Rodriges due to bladder tumor noted to the right ureteral orifice during robotic laparoscopic hysterectomy on 09/27/22. [1] 1. Bladder tumor (D49.4: Neoplasm of unspecified behavior of bladder) S/P TURBT 10/18/22 - Path showed papillary urothelial neoplasm, favor urothelial papilloma. [2] S/p Cysto 10/29/23 - No bladder tumors, stones, or lesions. Pt had IO cysto to check for bladder tumor recurrence without complications today. Pt took prophylactic abx prior to procedure. Cysto today was negative for recurrence. Follow up PRN. Pt understands and agrees with plan. Follow-up With When Contact Information JESSICA MORENO, Doug Manuel, URL Only if needed [facility] [address] [place] [address] [phone] Additional Instructions: Patient Education Cancer Screening for Females Brigette, Tanesha Ferris, personally scribed for Dr. Mcdaniel on 11/18/2024 08:02:46. Electronically signed by key Ferris Documentation recorded by the scribeTanesha, accurately reflects the services(s) I performed and decisions made by me. Authenticated by Dr. Mcdaniel on 11/18/2024 08:04:08.on 11/18/2024 08:02:46. Problem List/Past Medical History Ongoing Bladder tumor Carpal tunnel syndrome Excessive dietary caloric intake GERD (gastroesophageal reflux disease) Hiatal hernia Intractable migraine without status migrainosus Metabolic syndrome Morbid obesity with BMI of 40.0-44.9, adult OA (osteoarthritis) of knee Physical exam Varicose veins of calf Historical No qualifying data Procedure/Surgical History Cystoscopy (11/18/2024), Cystourethroscopy with dilation of urethral stricture (10/29/2023), TURBT - Transurethral resection of bladder tumor (10/18/2022), Appendectomy, Arm fracture, Arthroscopy of knee, Hysterectomy, Tubal ligation. Medications Cipro 500 mg Tab, 500 mg= 1 tab(s), Oral, Daily phentermine 37.5 mg Tab, 37.5 mg= 1 tab(s), Oral, Daily, 2 refills Allergies Latex (Rash) Bactrim (Unknown) Cefzil (Unknown) CeleBREX (Unknown) Demerol (Unknown) Mobic (Unknown) Provera (Unknown) gabapentin (Unknown) Social History Alcohol - Denies Alcohol Use, 10/09/2022 Household alcohol concerns: No., 10/09/2022 Substance Abuse - Denies Substance Abuse, 10/09/2022 Household substance abuse concerns: No., 10/09/2022 Tobacco - Denies Tobacco Use, 10/09/2022 Never (less than 100 in lifetime) Tobacco Use:. Never Smokeless Tobacco Use:. Household tobacco concerns: No., 11/18/2024 Family History Arthritis: Mother and Father. Hypertension: Mother and Father. Primary malignant neoplasm of prostate: Father. Immunizations Vaccine Date Status Comments influenza virus vaccine, inactivated - Not Given Parent Or Guardian Refuses influenza virus vaccine, inactivated - Not Given Patient Refuses influenza virus vaccine, inactivated - Not Give (more content not included)... Normal [facility] Comment on above: Result Comment: Elec tronically Signed By: Doug MCDANIEL MD\.br\Date and Time Signed: 11/18/24 08:04 EDT\.br\Electronically Co-Signed By: Tanesha Ferris\.br\Date and Time Co-Signed: 11/18/24 08:03 EDT [facility] Patient Letter [facility] October 09, 2024 YOKASTA ZHENG [address] [place] [address] : 1975 Dear Yokasta Zheng, [facility], Dr. Doug Mcdaniel office, has been trying to reach you concerning your annual bladder scope (cystoscopy). You are due in October 2024. Please call the office so we can coordinate this procedure with you and continue to provide you with quality care. Sincerely, Doug Mcdaniel M.D., F.A.C.S. [facility] [address] [place], [place] [address] , option #3 Normal [facility] XR shoulder RT min 2V*on XR shoulder RT min 2V* [facility] [address] [place] [address] XRay Report Signed Patient: Yokasta Zheng MR#: [id number] : 1975 Acct:[id number] Age/Sex: 48 / F ADM Date: 12/24/23 Loc: [facility] Room: Type: [facility] Attending Dr: Janna Berger MD Copies to: Janna Berger MD Ordering Provider: Janna Berger MD Date of Service: 12/24/23 XR/XR shoulder RT min 2V*: M75.101 - Unspecified rotator cuff tear or rupture of rig... 3 views right shoulder plain film HISTORY: Status post right rotator cuff repair COMPARISON: 12/13/2022 ACUTE FINDINGS: None DEGENERATIVE CHANGE: Similar mild degeneration SOFT TISSUE FINDINGS: Unremarkable JOINT EFFUSION: None POSTOP CHANGES: None BONY MINERALIZATION: Adequate XR/XR shoulder RT min 2V* IMPRESSION: Similar mild degenerative changes. No new findings Impression dictated by: Srinivas Goodwin M.D.12/24/2023 1:41 PM Dictation Location: [place] [address] Transcribed By: [facility] 12/24/23 1341 Dictated By: Srinivas Goodwin DO 12/24/23 1339 Signed By: 12/24/23 1341 Normal [facility] Alanine aminotransferase [En zymatic activity/volume] in Serum or PlasmaOrdered By: Janna Berger on 11-27-2023 ALT [Catalytic activity/Vol] 9 U/L 7-52 [facility] Albumin [Mass/volume] in Ser um or Plasma by Bromocresol green (BCG) dye binding methoOrdered By: Janna Berger on 11-27-2023 Albumin BCG dye [Mass/Vol] 4.0 g/dL 3.5-5.7 [facility] Alkaline phosphatase [Enzyma tic activity/volume] in Serum or PlasmaOrdered By: Janna Berger on 11-27-2023 ALP [Catalytic activity/Vol] 65 U/L 34-104 [facility] Aspartate aminotransferase [ Enzymatic activity/volume] in Serum or PlasmaOrdered By: Janna Berger on 11-27-2023 AST [Catalytic activity/Vol] 12 U/L Low 13-39 [facility] Basophils Auto (Bld) [#/Vol] Ordered By: Janna Berger on 11-27-2023 Basophils (Bld) [#/Vol] 0.0 10*3/uL 0.0-0.2 [facility] Basophils/100 WBC Auto (Bld) Ordered By: Janna Berger on 11-27-2023 Basophils/100 WBC (Bld) 0.4 % . [facility] Bilirubin.total [Mass/volume ] in Serum or PlasmaOrdered By: Janna Berger on 11-27-2023 Bilirubin [Mass/Vol] 0.5 mg/dL 0.3-1.0 [facility] Calcium [Mass/volume] in Ser um or PlasmaOrdered By: Janna Berger on 11-27-2023 Calcium [Mass/Vol] 8.7 mg/dL 8.6-10.3 [facility] Carbon dioxide, total [Moles /volume] in Serum or PlasmaOrdered By: Janna Berger on 11-27-2023 CO2 [Moles/Vol] 27.1 mmol/L 21.0-31.0 [facility] Chloride [Moles/volume] in S rhonda or PlasmaOrdered By: Janna Berger on 11-27-2023 Chloride [Moles/Vol] 109 mmol/L High 98-107 [facility] Creatinine [Mass/volume] in Serum or PlasmaOrdered By: Janna Berger on 11-27-2023 Creatinine [Mass/Vol] 0.87 mg/dL 0.60-1.20 [facility] Eosinophils Auto (Bld) [#/Vo l]Ordered By: Janna Berger on 11-27-2023 Eosinophils (Bld) [#/Vol] 0.2 10*3/uL 0.0-0.45 [facility] Eosinophils/100 WBC Auto (Bl d)Ordered By: Janna Berger on 11-27-2023 Eosinophils/100 WBC (Bld) 1.8 % . [facility] Erythrocyte distribution wid th Auto (RBC) [Ratio]Ordered By: Janna Berger on 11-27-2023 Erythrocyte distribution width (RBC) [Ratio] 13.0 % 11.9-15.3 [facility] Globulin Calc (S) [Mass/Vol] Ordered By: Janna Berger on 11-27-2023 Globulin (S) [Mass/Vol] 2.3 g/dL [facility] Glucose [Mass/volume] in Ser um or PlasmaOrdered By: Janna Berger on 11-27-2023 Glucose [Mass/Vol] 74 mg/dL 70-100 [facility] Hematocrit Auto (Bld) [Volum e fraction]Ordered By: Janna Berger on 11-27-2023 Hematocrit (Bld) [Volume fraction] 42.1 % 34.0-46.4 [facility] Hemoglobin [Mass/volume] in BloodOrdered By: Janna Berger on 11-27-2023 Hemoglobin (Bld) [Mass/Vol] 13.8 g/dL 11.8-15.4 [facility] Leukocytes [#/volume] correc yumiko for nucleated erythrocytes in Blood by Automated counOrdered By: Janna Berger on 11-27-2023 WBC corrected for nucl RBC Auto (Bld) [#/Vol] 8.4 10*3/uL 3.8-11.6 [facility] Lymphocytes Auto (Bld) [#/Vo l]Ordered By: Janna Berger on 11-27-2023 Lymphocytes (Bld) [#/Vol] 2.3 10*3/uL 1.00-4.8 [facility] Lymphocytes/100 WBC Auto (Bl d)Ordered By: Janna Berger on 11-27-2023 Lymphocytes/100 WBC (Bld) 27.8 % . [facility] MCH Auto (RBC) [Entitic mass ]Ordered By: Janna Berger on 11-27-2023 MCH (RBC) [Entitic mass] 29.0 pg 24.7-34.3 [facility] MCHC Auto (RBC) [Mass/Vol]Or dered By: Janna Berger on 11-27-2023 MCHC (RBC) [Mass/Vol] 32.9 g/dL 32.0-35.0 [facility] MCV Auto (RBC) [Entitic vol] Ordered By: Janna Berger on 11-27-2023 MCV (RBC) [Entitic vol] 88.2 fL 80-100 [facility] Monocytes Auto (Bld) [#/Vol] Ordered By: Janna Berger on 11-27-2023 Monocytes (Bld) [#/Vol] 0.5 10*3/uL 0.0-0.8 [facility] Monocytes/100 WBC Auto (Bld) Ordered By: Janna Berger on 11-27-2023 Monocytes/100 WBC (Bld) 5.5 % . [facility] Neutrophils Auto (Bld) [#/Vo l]Ordered By: Janna Berger on 11-27-2023 Neutrophils (Bld) [#/Vol] 5.4 10*3/uL 1.8-7.7 [facility] Neutrophils/100 WBC Auto (Bl d)Ordered By: Janna Berger on 11-27-2023 Neutrophils/100 WBC (Bld) 64.5 % . [facility] No Panel InformationOrdered By: Janna Berger on 11-27-2023 Estimated GFR (CKD-EPI) > 60.0 mL/Min [facility] Creatinine Clearance (Chem N/A [facility] Nucleated erythrocytes [Pres ence] in Blood by Automated countOrdered By: Janna Berger on 11-27-2023 Nucleated RBC Auto Ql (Bld) 0.1 /100{WBC} 0-0.5 [facility] Platelet mean volume Auto (B ld) [Entitic vol]Ordered By: Janna Berger on 11-27-2023 Platelet mean volume (Bld) [Entitic vol] 9.2 fL 6.3-10.7 [facility] Platelets Auto (Bld) [#/Vol] Ordered By: Janna Berger on 11-27-2023 Platelets (Bld) [#/Vol] 218 10*3/uL 150-450 [facility] Potassium [Moles/volume] in Serum or PlasmaOrdered By: Janna Berger on 11-27-2023 Potassium [Moles/Vol] 4.3 mmol/L 3.5-5.[address] [facility] Protein [Mass/volume] in Ser um or PlasmaOrdered By: Janna Berger on 11-27-2023 Protein [Mass/Vol] 6.3 g/dL Low 6.4-8.9 [facility] RBC Auto (Bld) [#/Vol]Ordere d By: Janna Berger on 11-27-2023 RBC (Bld) [#/Vol] 4.77 10*6/uL 3.60-5.00 [facility] Serum or plasma albumin/glob ulin mass ratioOrdered By: Janna Berger on 11-27-2023 Albumin/Globulin [Mass ratio] 1.7 {ratio} [facility] Serum or plasma anion gap de terminationOrdered By: Janna Berger on 11-27-2023 Anion gap [Moles/Vol] 10.2 mmol/L 6.0-15.0 [facility] Sodium [Moles/volume] in Ser um or PlasmaOrdered By: Janna Berger on 11-27-2023 Sodium [Moles/Vol] 142 mmol/L 136-145 [facility] Urea nitrogen [Mass/volume] in Serum or PlasmaOrdered By: Janna Berger on 11-27-2023 Urea nitrogen [Mass/Vol] 22 mg/dL 7-25 [facility] WBC Auto (Bld) [#/Vol]Ordere d By: Janna Berger on 11-27-2023 WBC (Bld) [#/Vol] 8.4 10*3/uL 3.8-11.6 [facility] PAP ACOG PANEL 2: 30 to 65on 10-05-2022 . . Normal [facility] Comment on above: Result Comment: Perf ormed at: WB Performed By: #### [id number] #### [facility] [address] [place] [address] Dr. Florecita Mohr Age Gdln ACOG Testing 30-65 [facility] Comment on above: Performed By: #### [id number] #### [facility] [address] [place] [address] Dr. Florecita Mohr DIAGNOSIS: Comment Normal [facility] Comment on above: Result Comment: NEGA TIVE FOR INTRAEPITHELIAL LESION OR MALIGNANCY. Performed at: WB Performed By: #### [id number] #### [facility] [address] [place] [address] Dr. Florecita Mohr HPV Aptima Negative Normal Negative [facility] Comment on above: Result Comment: This nucleic acid amplification test detects fourteen high-risk HPV types (16,18,31,33,35,39,45,51,52,56,58,59,66,68) without differentiation. Performed at: =G Performed By: #### [id number] #### [facility] [address] [place] [address] [address] Florecita Mohr HPV Genotype Reflex Comment Normal [facility] Comment on above: Result Comment: Crit eria not met, HPV Genotype not performed. Performed at: WB Performed By: #### [id number] #### [facility] [address] [place] [address] Dr. Florecita Mohr Methodology: Comment [facility] Comment on above: Result Comment: This liquid based ThinPrep(R) pap test was screened with the use of an image guided system. Performed at: WB Performed By: #### [id number] #### [facility] [address] [place] [address] Dr. Florecita Mohr Note: Comment Normal [facility] Comment on above: Result Comment: The Pap smear is a screening test designed to aid in the detection of premalignant and malignant conditions of the uterine cervix. It is not a diagnostic procedure and should not be used as the sole means of detecting cervical cancer. Both false-positive and false-negative reports do occur. . Performed at: WB Performed By: #### [id number] #### [facility] [address] [place] [address] Dr. Florecita Mohr Performed by: Comment Normal [facility] Comment on above: Result Comment: Kaykay Dugan, Supervisor Telephone Clerks Performed at: WB Performed By: #### [id number] #### [facility] [address] [place] [address] Dr. Folrecita Mohr Specimen adequacy: Comment Normal [facility] Comment on above: Result Comment: Sati sfactory for evaluation. Endocervical and/or squamous metaplastic cells (endocervical component) are present. Areas of partially obscuring blood are present. Performed at: WB Performed By: #### [id number] #### [facility] [address] [place] [address] Dr. Florecita Mohr BUNon 09-28-2022 Urea nitrogen [Mass/Vol] 10.0 mg/dL Normal 7.0-18.0 [facility] Comment on above: Performed By: #### C HUNG, BUN #### [facility] [address] [place] [address] Dr. Florecita Mohr CBC AUTO DIFFon 09-28-2022 BASO # 0.0 103/ul Normal 0.0-0.1 [facility] Comment on above: Performed By: #### C HUNG, BUN #### [facility] [address] [place] [address] Dr. Florecita Mohr Basophils/100 WBC (Bld) 0.1 % Critically low 0.2-2.0 [facility] Comment on above: Performed By: #### C HUNG, BUN #### [facility] [address] [place] [address] Dr. Florecita Mohr EO # 0.0 103/ul Normal 0.0-0.7 [facility] Comment on above: Performed By: #### C HUNG, BUN #### [facility] [address] [place] [address] Dr. Florecita Mohr Eosinophils/100 WBC (Bld) 0.1 % Critically low 0.9-7.0 [facility] Comment on above: Performed By: #### C HUNG, BUN #### [facility] [address] [place] [address] Dr. Florecita Mohr Erythrocyte distribution width (RBC) [Ratio] 12.5 % Normal 11.0-15.0 [facility] Comment on above: Performed By: #### C HUNG, BUN #### [facility] [address] [place] [address] Dr. Florecita Mohr Hematocrit (Bld) [Volume fraction] 37.7 % Normal 36.0-48.0 [facility] Comment on above: Performed By: #### C HUNG BUN #### [facility] [address] [place] [address] Dr. Florecita Mohr Hemoglobin (Bld) [Mass/Vol] 12.2 g/dL Normal 12.0-16.0 [facility] Comment on above: Performed By: #### C HUNG BUN #### [facility] [address] [place] [address] Dr. Florecita Mohr IG # 0.10 10e3/ul Critically high 0.00-0.03 [facility] Comment on above: Performed By: #### C HUNG BUN #### [facility] [address] [place] [address] Dr. Florecita Mohr IG % 0.7 % Critically high 0.0-0.5 [facility] Comment on above: Performed By: #### C HUNG, BUN #### [facility] [address] [place] [address] Dr. Florecita Mohr LYMPH # 1.0 103/ul Critically low 1.2-3.8 [facility] Comment on above: Performed By: #### C HUNG, BUN #### [facility] [address] [place] [address] Dr. Florecita Mohr Lymphocytes/100 WBC (Bld) 7.2 % Critically low 20.5-60.0 [facility] Comment on above: Performed By: #### C HUNG, BUN #### [facility] [address] [place] [address] Dr. Florecita Mohr MANUAL DIFF REQ NO Normal [facility] Comment on above: Performed By: #### C HUNG, BUN #### [facility] [address] [place] [address] Dr. Florecita Mohr MCH (RBC) [Entitic mass] 29.4 pg Normal 26.7-34.0 [facility] Comment on above: Performed By: #### C HUNG, BUN #### [facility] [address] [place] [address] Dr. Florecita Mohr MCHC (RBC) [Mass/Vol] 32.4 g/dL Normal 29.9-35.2 [facility] Comment on above: Performed By: #### C HUNG, BUN #### [facility] [address] [place] [address] Dr. Florecita Mohr MCV (RBC) [Entitic vol] 90.8 fL Normal 81.0-99.0 [facility] Comment on above: Performed By: #### C HUNG, BUN #### [facility] [address] [place] [address] Dr. Florecita Mohr MONO # 1.0 103/ul Critically high 0.3-0.8 [facility] Comment on above: Performed By: #### C HUNG, BUN #### [facility] [address] [place] [address] Dr. Florecita Mohr Monocytes/100 WBC (Bld) 7.3 % Normal 1.7-12.0 [facility] Comment on above: Performed By: #### C HUNG, BUN #### [facility] [address] [place] [address] Dr. Florecita Mohr NEUT # 12.0 103/ul Critically high 1.4-6.5 [facility] Comment on above: Performed By: #### C HUNG, BUN #### [facility] [address] [place] [address] Dr. Florecita Mohr Neutrophils/100 WBC (Bld) 84.6 % Critically high 43.0-75.0 [facility] Comment on above: Performed By: #### C HUNG, BUN #### [facility] [address] [address] Dr. Florecita Mohr Platelet mean volume (Bld) [Entitic vol] 10.7 fL Normal 9.5-13.5 [facility] Comment on above: Performed By: #### C HUNG, BUN #### [facility] [address] [address] [address] Florecita Mohr PLT 200 103/ul Normal 150-450 [facility] Comment on above: Performed By: #### C HUNG, BUN #### [facility] [address] [address] [address] Florecita Mohr RBC 4.15 106/ul Critically low 4.20-5.40 [facility] Comment on above: Performed By: #### C HUNG, BUN #### [facility] [address] [place] [address] Dr. Florecita Mohr WBC 14.2 103/ul Critically high 4.0-11.0 [facility] Comment on above: Performed By: #### C HUNG, BUN #### [facility] [address] [address] [address] Florecita Mohr CREATININEon 09-28-2022 Creatinine [Mass/Vol] 0.86 mg/dL Normal 0.55-1.02 [facility] Comment on above: Performed By: #### C HUNG, BUN #### [facility] [address] [place] [address] Dr. Florecita Mohr EGFR-AF FIJIAN >60 Normal >=[address] [facility] Comment on above: Performed By: #### C HUNG, BUN #### [facility] [address] [address] [address] Florecita Mohr EGFR-NON AF FIJIAN >60 Normal >=60 [facility] Comment on above: Performed By: #### C HUNG, BUN #### [facility] [address] [place] [address] Dr. Florecita Mohr PREG QUANT HCGon 09-27-2022 HCG QUANT <1 Normal [facility] Comment on above: Performed By: #### P REGQNT #### [facility] [address] [place] [address] Dr. Florecita Mohr HCG RANGE SEE BELOW Normal [facility] Comment on above: Result Comment: 5-50 0.2-1 WEEK 50-500 1-2 WEEKS 100-5,000 2-3 WEEKS 500-10,000 3-4 WEEKS 1,000-50,000 4-5 WEEKS 10,000-100,000 5-6 WEEKS 15,000-200,000 6-8 WEEKS 10,000-100,000 2-3 MONTHS Performed By: #### P REGQNT #### [facility] [address] [place] [address] Dr. Florecita Mohr TYPE AND SCREENon 09-24-2022 TYPE AND SCREEN Negative Normal [facility] Comment on above: Performed By: #### C HUNG, BUN #### [facility] [address] [place] [address] Dr. Florecita Mohr CBC AUTO DIFFon 09-13-2022 BASO # 0.1 103/ul Normal 0.0-0.1 [facility] Comment on above: Performed By: #### C HUNG, BUN #### [facility] [address] [place] [address] Dr. Florecita Mohr Basophils/100 WBC (Bld) 0.6 % Normal 0.2-2.0 [facility] Comment on above: Performed By: #### C HUNG, BUN #### [facility] [address] [place] [address] Dr. Florecita Mohr EO # 0.2 103/ul Normal 0.0-0.7 [facility] Comment on above: Performed By: #### C HUNG, BUN #### [facility] [address] [place] [address] Dr. Florecita Mohr Eosinophils/100 WBC (Bld) 2.1 % Normal 0.9-7.0 [facility] Comment on above: Performed By: #### C HUNG, BUN #### [facility] [address] [place] [address] Dr. Florecita Mohr Erythrocyte distribution width (RBC) [Ratio] 12.5 % Normal 11.0-15.0 [facility] Comment on above: Performed By: #### C HUNG, BUN #### [facility] [address] [place] [address] Dr. Florecita Mohr Hematocrit (Bld) [Volume fraction] 41.7 % Normal 36.0-48.0 [facility] Comment on above: Performed By: #### C HUNG, BUN #### [facility] [address] [place] [address] Dr. Florecita Mohr Hemoglobin (Bld) [Mass/Vol] 13.4 g/dL Normal 12.0-16.0 [facility] Comment on above: Performed By: #### C HUNG, BUN #### [facility] [address] [place] [address] Dr. Florecita Mohr IG # 0.02 10e3/ul Normal 0.00-0.03 [facility] Comment on above: Performed By: #### C HUNG, BUN #### [facility] [address] [place] [address] Dr. Florecita Mohr IG % 0.2 % Normal 0.0-0.5 [facility] Comment on above: Performed By: #### C HUNG, BUN #### [facility] [address] [place] [address] Dr. Florecita Mohr LYMPH # 2.3 103/ul Normal 1.2-3.8 [facility] Comment on above: Performed By: #### C HUNG, BUN #### [facility] [address] [place] [address] Dr. Florecita Mohr Lymphocytes/100 WBC (Bld) 26.7 % Normal 20.5-60.0 [facility] Comment on above: Performed By: #### C HUNG, BUN #### [facility] [address] [place] [address] Dr. Florecita Mohr MANUAL DIFF REQ NO Normal [facility] Comment on above: Performed By: #### C HUNG, BUN #### [facility] [address] [place] [address] Dr. Florecita Mohr MCH (RBC) [Entitic mass] 29.2 pg Normal 26.7-34.0 [facility] Comment on above: Performed By: #### Jaime PERSAUD, BUN #### [facility] [address] [place] [address] Dr. Florecita Mohr MCHC (RBC) [Mass/Vol] 32.1 g/dL Normal 29.9-35.2 [facility] Comment on above: Performed By: #### Jaime PERSAUD, BUN #### [facility] [address] [place] [address] Dr. Florecita Mohr MCV (RBC) [Entitic vol] 90.8 fL Normal 81.0-99.0 [facility] Comment on above: Performed By: #### C HUNG, BUN #### [facility] [address] [place] [address] Dr. Florecita Mohr MONO # 0.7 103/ul Normal 0.3-0.8 [facility] Comment on above: Performed By: #### Jaime PERSAUD, BUN #### [facility] [address] [place] [address] Dr. Florecita Mohr Monocytes/100 WBC (Bld) 8.2 % Normal 1.7-12.0 [facility] Comment on above: Performed By: #### C HUNG, BUN #### [facility] [address] [place] [address] Dr. Florecita Mohr NEUT # 5.4 103/ul Normal 1.4-6.5 [facility] Comment on above: Performed By: #### Jaime PERSAUD, BUN #### [facility] [address] [place] [address] Dr. Florecita Mohr Neutrophils/100 WBC (Bld) 62.2 % Normal 43.0-75.0 [facility] Comment on above: Performed By: #### C HUNG, BUN #### [facility] [address] [place] [address] Dr. Florecita Mohr Platelet mean volume (Bld) [Entitic vol] 10.2 fL Normal 9.5-13.5 [facility] Comment on above: Performed By: #### C HUNG, BUN #### [facility] [address] [place] [address] Dr. Florecita Mohr PLT 211 103/ul Normal 150-450 [facility] Comment on above: Performed By: #### C HUNG, BUN #### [facility] [address] [place] [address] Dr. Florecita Mohr RBC 4.59 106/ul Normal 4.20-5.40 [facility] Comment on above: Performed By: #### C HUNG, BUN #### [facility] [address] [place] [address] Dr. Florecita Mohr WBC 8.6 103/ul Normal 4.0-11.0 [facility] Comment on above: Performed By: #### C HUNG, BUN #### [facility] [address] [place] [address] Dr. Florecita Mohr LIVER PROFILEon 09-13-2022 Albumin [Mass/Vol] 3.4 g/dL Normal 3.4-5.0 [facility] Comment on above: Performed By: #### C HUNG, BUN #### [facility] [address] [place] [address] Dr. Florecita Mohr Albumin/Globulin [Mass ratio] 1.0 {ratio} Normal [facility] Comment on above: Performed By: #### C HUNG, BUN #### [facility] [address] [place] [address] Dr. Florecita Mohr ALP [Catalytic activity/Vol] 69 U/L Normal 46-116 [facility] Comment on above: Performed By: #### C HUNG, BUN #### [facility] [address] [place] [address] Dr. Florecita Mohr ALT [Catalytic activity/Vol] 18 U/L Normal 14-59 [facility] Comment on above: Performed By: #### C HUNG, BUN #### [facility] [address] [place] [address] Dr. Florecita Mohr AST [Catalytic activity/Vol] 12 U/L Critically low 15-37 [facility] Comment on above: Performed By: #### C HUNG, BUN #### [facility] [address] [place] [address] Dr. Florecita Mohr BILI, CONJUGATED 0.1 mg/dL Normal 0.0-0.2 [facility] Comment on above: Performed By: #### C HUNG, BUN #### [facility] [address] [place] [address] Dr. Florecita Mohr Bilirubin [Mass/Vol] 0.6 mg/dL Normal 0.2-1.0 [facility] Comment on above: Performed By: #### C HUNG, BUN #### [facility] [address] [place] [address] Dr. Florecita Mohr Globulin (S) [Mass/Vol] 3.5 g/dL Normal [facility] Comment on above: Performed By: #### C HUNG, BUN #### [facility] [address] [place] [address] Dr. Florecita Mohr Protein [Mass/Vol] 6.9 g/dL Normal 6.4-8.2 [facility] Comment on above: Performed By: #### C HUNG, BUN #### [facility] [address] [place] [address] Dr. Florecita Mohr PROF CHEM 8 (BAS METB)on Anion gap [Moles/Vol] 10.3 mmol/L Normal [facility] Comment on above: Performed By: #### C HUNG, BUN #### [facility] [address] [place] [address] Dr. Florecita Mohr Calcium [Mass/Vol] 9.5 mg/dL Normal 8.5-10.1 [facility] Comment on above: Performed By: #### C HUNG, BUN #### [facility] [address] [place] [address] Dr. Florecita Mohr Chloride [Moles/Vol] 107 mmol/L Normal 98-107 [facility] Comment on above: Performed By: #### C HUNG, BUN #### [facility] [address] [place] [address] Dr. Flroecita Mohr CO2 [Moles/Vol] 29.4 mmol/L Normal 21.0-32.0 [facility] Comment on above: Performed By: #### C HUNG, BUN #### [facility] [address] [place] [address] Dr. Florecita Mohr Creatinine [Mass/Vol] 0.83 mg/dL Normal 0.55-1.02 [facility] Comment on above: Performed By: #### C HUNG, BUN #### [facility] [address] [address] [address] Florecita Mohr EGFR-AF FIJIAN >60 Normal >=60 [facility] Comment on above: Performed By: #### C HUNG, BUN #### [facility] [address] [place] [address] Dr. Florecita Mohr EGFR-NON AF FIJIAN >60 Normal >=60 [facility] Comment on above: Performed By: #### C HUNG, BUN #### [facility] [address] [place] [address] Dr. Florecita Mohr Glucose [Mass/Vol] 87 mg/dL Normal 74-106 [facility] Comment on above: Performed By: #### C HUNG, BUN #### [facility] [address] [place] [address] Dr. Florecita Mohr Potassium [Moles/Vol] 4.7 mmol/L Normal 3.5-5.1 [facility] Comment on above: Performed By: #### C HUNG, BUN #### [facility] [address] [address] [address] Florecita Mohr Sodium [Moles/Vol] 142 mmol/L Normal 136-145 [facility] Comment on above: Performed By: #### C HUNG, BUN #### [facility] [address] [place] [address] Dr. Florecita Mohr Urea nitrogen [Mass/Vol] 15.0 mg/dL Normal 7.0-18.0 [facility] Comment on above: Performed By: #### C HUNG, BUN #### [facility] [address] [place] [address] Dr. Florecita Mohr Urea nitrogen/Creatinine [Mass ratio] 18.1 mg/mg Normal [facility] Comment on above: Performed By: #### C HUNG, BUN #### [facility] [address] [place] [address] Dr. Florecita Mohr PROTIMEon 09-13-2022 INR Coag (PPP) [Relative time] 0.96 {INR} Normal [facility] Comment on above: Performed By: #### P T, PTT #### [facility] [address] [place] [address] Dr. Florecita Mohr INR GUIDELINES SEE BELOW Normal [facility] Comment on above: Result Comment: JUNE RED INR: 2.0 - 3.0 CONDITIONS NOT LISTED BELOW 2.5 - 3.5 FOR PROSTHETIC HEART VALVE REPLACEMENT 2.5 - 3.5 RECURRENT THROMBOSIS Performed By: #### P T, PTT #### [facility] [address] [place] [address] Dr. Florecita Mohr PT Coag (PPP) [Time] 10.2 s Normal 9.0-11.6 [facility] Comment on above: Performed By: #### P T, PTT #### [facility] [address] [place] [address] Dr. Florecita Mohr PTTon 09-13-2022 aPTT Coag (Bld) [Time] 28.0 s Normal 22.3-36.2 [facility] Comment on above: Performed By: #### P T, PTT #### [facility] [address] [place] [address] Dr. Florecita Mohr CBC AUTO DIFFon 08-27-2022 BASO # 0.1 103/ul Normal 0.0-0.1 [facility] Comment on above: Performed By: #### C BC #### [facility] [address] [place] [address] Dr. Florecita Mohr Basophils/100 WBC (Bld) 0.4 % Normal 0.2-2.0 [facility] Comment on above: Performed By: #### C BC #### [facility] [address] [place] [address] Dr. Florecita Mohr EO # 0.2 103/ul Normal 0.0-0.7 [facility] Comment on above: Performed By: #### C BC #### [facility] [address] [place] [address] Dr. Florecita Mohr Eosinophils/100 WBC (Bld) 1.5 % Normal 0.9-7.0 [facility] Comment on above: Performed By: #### C BC #### [facility] [address] [place] [address] Dr. Florecita Mohr Erythrocyte distribution width (RBC) [Ratio] 12.5 % Normal 11.0-15.0 [facility] Comment on above: Performed By: #### C BC #### [facility] [address] [place] [address] Dr. Florecita Mohr Hematocrit (Bld) [Volume fraction] 39.9 % Normal 36.0-48.0 [facility] Comment on above: Performed By: #### C BC #### [facility] [address] [place] [address] Dr. Florecita Mohr Hemoglobin (Bld) [Mass/Vol] 12.9 g/dL Normal 12.0-16.0 [facility] Comment on above: Performed By: #### C BC #### [facility] [address] [place] [address] Dr. Florecita Mohr IG # 0.06 10e3/ul Critically high 0.00-0.03 [facility] Comment on above: Performed By: #### C BC #### [facility] [address] [place] [address] Dr. Florecita Mohr IG % 0.5 % Normal 0.0-0.5 [facility] Comment on above: Performed By: #### C BC #### [facility] [address] [place] [address] Dr. Florecita Mohr LYMPH # 2.5 103/ul Normal 1.2-3.8 [facility] Comment on above: Performed By: #### C BC #### [facility] [address] [place] [address] Dr. Florecita Mohr Lymphocytes/100 WBC (Bld) 20.8 % Normal 20.5-60.0 [facility] Comment on above: Performed By: #### C BC #### [facility] [address] [place] [address] Dr. Florecita Mohr MANUAL DIFF REQ NO Normal [facility] Comment on above: Performed By: #### C BC #### [facility] [address] [place] [address] Dr. Florecita Mohr MCH (RBC) [Entitic mass] 29.3 pg Normal 26.7-34.0 [facility] Comment on above: Performed By: #### C BC #### [facility] [address] [place] [address] Dr. Florecita Mohr MCHC (RBC) [Mass/Vol] 32.3 g/dL Normal 29.9-35.2 [facility] Comment on above: Performed By: #### C BC #### [facility] [address] [place] [address] Dr. Florecita Mohr MCV (RBC) [Entitic vol] 90.7 fL Normal 81.0-99.0 [facility] Comment on above: Performed By: #### C BC #### [facility] [address] [place] [address] Dr. Florecita Mohr MONO # 1.1 103/ul Critically high 0.3-0.8 [facility] Comment on above: Performed By: #### C BC #### [facility] [address] [place] [address] Dr. Florecita Mohr Monocytes/100 WBC (Bld) 9.0 % Normal 1.7-12.0 [facility] Comment on above: Performed By: #### C BC #### [facility] [address] [place] [address] Dr. Florecita Mohr NEUT # 8.0 103/ul Critically high 1.4-6.5 [facility] Comment on above: Performed By: #### C BC #### [facility] [address] [place] [address] Dr. Florecita Mohr Neutrophils/100 WBC (Bld) 67.8 % Normal 43.0-75.0 [facility] Comment on above: Performed By: #### C BC #### [facility] [address] [address] [address] Florecita Mohr Platelet mean volume (Bld) [Entitic vol] 10.3 fL Normal 9.5-13.5 [facility] Comment on above: Performed By: #### C BC #### [facility] [address] [place] [address] Dr. Florecita Mohr PLT 197 103/ul Normal 150-450 [facility] Comment on above: Performed By: #### C BC #### [facility] [address] [place] [address] Dr. Florecita Mohr RBC 4.40 106/ul Normal 4.20-5.40 [facility] Comment on above: Performed By: #### C BC #### [facility] [address] [place] [address] Dr. Florecita Mohr WBC 11.8 103/ul Critically high 4.0-11.0 [facility] Comment on above: Performed By: #### C BC #### [facility] [address] [place] [address] Dr. Florecita Mohr FREE T4on 08-27-2022 Free T4 [Mass/Vol] 0.85 ng/dL Normal 0.76-1.46 [facility] Comment on above: Performed By: #### F T4 #### [facility] [address] [place] [address] Dr. Florecita Mohr GLYCOHEMOGLOBIN A1Con 2022 ADA RECOMMENDATION SEE BELOW Normal [facility] Comment on above: Result Comment: ADA RECOMMENDED LIMIT 4.0 - 6.0 ADA THERAPEUTIC TARGET < 7.0 ACTION SUGGESTED > 7.0 Performed By: #### C HUNG, BUN #### [facility] [address] [place] [address] Dr. Florecita Mohr Glucose [Mass/Vol] 103 mg/dL Normal [facility] Comment on above: Performed By: #### C HUNG BUN #### [facility] [address] [place] [address] Dr. Florecita Mohr HbA1c (Bld) [Mass fraction] 5.2 % Normal 4.5-6.2 [facility] Comment on above: Performed By: #### C HUNG, BUN #### [facility] [address] [address] [address] Florecita Mohr MG MAMM SCREEN 3D MELQUIADES CADon 08-27-2022 MG MAMM SCREEN 3D MELQUIADES CAD Patient: YOKASTA ZHENG Exam Date: 08/27/2022 : 1975 Gender:F Ordering : DR FAREED RODRIGES . Admission #: [id number] Family : Order #: [id number] CLICK HERE TO VIEW EXAM RADIOLOGY REPORT PROCEDURE: MAMMOGRAM SCREENING 3D BILATERAL CAD COMPARISON: MG MAMM SCREEN 3D MELQUIADES CAD, 08/17/2021. MG MAMM SCREEN 3D MELQUIADES CAD, 08/16/2020. MG MAMM RT DIAG FU, 10/08/2017. MG MAMM MELQUIADES DIAG W CAD DIG, 02/05/2008. INDICATIONS: Screening mammography Calculator Name NCI Breast Cancer Risk Assessment Tool 5 Year Breast Cancer Risk 0.70% Lifetime Breast Cancer Risk 8.70% Personal Breast Cancer No Personal Ovarian Cancer No Treatments None Family Cancers None LOCATION: [facility] BREAST COMPOSITION: Heterogeneously dense,which may obscure small masses. FINDINGS: DIAGNOSTIC CATEGORY 2--BENIGN FINDING: RIGHT BREAST: No significant suspicious finding. Stable, chronic asymmetry within the posterior upper-outer quadrant. No significant change has occurred. LEFT BREAST: No significant suspicious finding. No significant change has occurred. RECOMMENDATIONS: ROUTINE MAMMOGRAM AND CLINICAL EVALUATION IN 12 MONTHS. PLEASE NOTE: A NORMAL MAMMOGRAM DOES NOT EXCLUDE THE POSSIBILITY OF BREAST CANCER. A CLINICALLY SUSPICIOUS PALPABLE LUMP SHOULD BE BIOPSIED. Dictated by: Lane Sheldon M.D. on 08/27/2022 at 14:[address]: [address] Sheldon M.D. on 08/27/2022 at 15:02 Normal [facility] PROTIMEon 08-27-2022 INR Coag (PPP) [Relative time] {INR} Normal [facility] Comment on above: Performed By: #### P T, PTT #### [facility] [address] [address] [address] Florecita Mohr INR GUIDELINES SEE BELOW Normal [facility] Comment on above: Result Comment: JUNE RED INR: 2.0 - 3.0 CONDITIONS NOT LISTED BELOW 2.5 - 3.5 FOR PROSTHETIC HEART VALVE REPLACEMENT 2.5 - 3.5 RECURRENT THROMBOSIS Performed By: #### P T, PTT #### [facility] [address] [place] [address] Dr. Florecita Mohr PT Coag (PPP) [Time] 9.8 s Normal 9.0-11.6 [facility] Comment on above: Performed By: #### P T, PTT #### [facility] [address] [place] [address] Dr. Florecita Mohr PTTon 08-27-2022 aPTT Coag (Bld) [Time] 26.5 s Normal 22.3-36.2 [facility] Comment on above: Performed By: #### P T, PTT #### [facility] [address] [place] [address] Dr. Florecita Mohr TSHon 08-27-2022 TSH 1.725 uIU/mL Normal 0.358-3.740 [facility] Comment on above: Performed By: #### C HUNG, BUN #### [facility] [address] [place] [address] Dr. Florecita Mohr US PELVIS TRANSVAGon 023 US PELVIS TRANSVAG EXAMINATION: US PELVIS TRANSVAG HISTORY: Excessive menstruation with irregular cycle ; menorrhagia, dysmenorrhea COMPARISON: Ultrasound pelvis 08/12/2020 TECHNIQUE: Transabdominal and transvaginal sonographic examination. FINDINGS: UTERUS: Slightly heterogeneous echotexture. Normal size and contour. Uterus size: 9.4 x 6.1 x 4.9 cm ENDOMETRIUM: Normal homogeneous appearance. Endometrial thickness: 5 mm RIGHT OVARY: Not seen. No suspicious adnexal findings. LEFT OVARY: Contains a 1.3 cm dominant follicle versus cyst. Adjacent to the left ovary is a 1.4 cm simple appearing cyst, likely benign paraovarian cyst. Duplex Doppler demonstrates normal waveform and flow; resistive index 0.7. Ovary size: 3.3 x 1.6 x 2.8 cm CUL-DE-SAC: Unremarkable. No significant free fluid. BLADDER: Unremarkable. OTHER: None. IMPRESSION: 1. No abnormal or specific findings to account for patient's symptoms. 2. Left ovarian cyst and paraovarian cyst of doubtful clinical significance. 3. Right ovary was not seen. No suspicious right adnexal findings. Electronically authenticated by: LANE SHELDON Date: 2022-08-27 12:39 Normal [facility] Vital Signs Date Time Vital Sign Value Performing Clinician Facility 12-09-2024 13:14-0400 Body height 165.1 cm Eduarda CISNEROS Work Phone: [facility] 12-09-2024 13:14-0400 Body mass index (BMI) [Ratio] 40.6 kg/m2 Eduarda CISNEROS Work Phone: [facility] 12-09-2024 13:14-0400 Body weight 110.68 kg Eduarda CISNEROS Work Phone: [facility] 12-09-2024 13:14-0400 Diastolic blood pressure 78 mm[Hg] Eduarda CISNEROS Work Phone: [facility] 12-09-2024 13:14-0400 Systolic blood pressure 124 mm[Hg] Eduarda CISNEROS Work Phone: [facility] 12-18-2023 11:15-0400 Diastolic blood pressure 97 mm[Hg] MD Al Bowie Work Phone: [facility] 12-18-2023 11:15-0400 Heart rate 55 /min MD Al Bowie Work Phone: [facility] 12-18-2023 11:15-0400 Respiratory rate 20 /min MD Al Bowie Work Phone: [facility] 12-18-2023 11:15-0400 SaO2% (BldA) [Mass fraction] 95 % MD Al Bowie Work Phone: [facility] 12-18-2023 11:15-0400 Systolic blood pressure 152 mm[Hg] MD Al Bowie Work Phone: [facility] 12-18-2023 09:13-0400 Body temperature 97.3 [degF] MD Al Bowie Work Phone: [facility] 12-18-2023 09:13-0400 Inhaled oxygen flow rate 6 L/min MD Al Bowie Work Phone: [facility] 12-18-2023 05:55-0400 Body height 165.1 cm MD lA Bowie Work Phone: [facility] 12-18-2023 05:55-0400 Body weight 102.05 kg MD Al Bowie Work Phone: [facility] 11-27-2023 09:50-0400 Body height 162.56 cm MD Al Bowie Work Phone: [facility] 11-27-2023 09:50-0400 Body weight 108.4 kg MD Al Bowie Work Phone: [facility] 11-27-2023 09:50-0400 Diastolic blood pressure 89 mm[Hg] MD Al Bowie Work Phone: [facility] 11-27-2023 09:50-0400 Heart rate 70 /min MD Al Bowie Work Phone: [facility] 11-27-2023 09:50-0400 Respiratory rate 18 /min MD Al Bowie Work Phone: [facility] 11-27-2023 09:50-0400 SaO2% (BldA) [Mass fraction] 98 % MD Al Bowie Work Phone: [facility] 11-27-2023 09:50-0400 Systolic blood pressure 139 mm[Hg] MD Al Bowie Work Phone: [facility] 07-29-2023 10:23-0500 Body height 165.1 cm [facility] 07-29-2023 10:23-0500 Body mass index (BMI) [Ratio] 37.3 kg/m2 [facility] 07-29-2023 10:23-0500 Body temperature 97.6 [degF] [facility] 07-29-2023 10:23-0500 Body weight 101.6 kg [facility] 07-29-2023 10:23-0500 Diastolic blood pressure 84 mm[Hg] [facility] 07-29-2023 10:23-0500 Heart rate 71 /min [facility] 07-29-2023 10:23-0500 Respiratory rate 16 /min [facility] 07-29-2023 10:23-0500 SaO2% (BldA) [Mass fraction] 98 % [facility] 07-29-2023 10:23-0500 Systolic blood pressure 124 mm[Hg] [facility] 05-09-2023 09:00-0500 Body height 165.1 cm Heavenly Pitt Other [facility] Other 10-26-2022 10:33-0400 Blood Pressure Location Doug MCDANIEL [facility] 10-26-2022 10:33-0400 Diastolic blood pressure 81 mm[Hg] Doug MCDANIEL [facility] 10-26-2022 10:33-0400 Heart rate 88 /min Doug MCDANIEL [facility] 10-26-2022 10:33-0400 Respiratory rate 16 /min Doug MCDANIEL [facility] 10-26-2022 10:33-0400 Systolic blood pressure 133 mm[Hg] Doug MCDANEIL [facility] 09-14-2021 11:00-0400 Body height 165.1 cm Phillip Carlos Other [facility] Other 09-14-2021 11:00-0400 Body mass index (BMI) [Ratio] 40.27 kg/m2 Phillip Easterwood Other [facility] Other 09-14-2021 11:00-0400 Body temperature 97.8 [degF] Phillip Easterwood Other [facility] Other 09-14-2021 11:00-0400 Body weight 109.77 kg Phillip Easterwood Other [facility] Other 09-14-2021 11:00-0400 Diastolic blood pressure 70 mm[Hg] Phillip Easterwood Other [facility] Other 09-14-2021 11:00-0400 Respiratory rate 20 /min Phillip Easterwood Other [facility] Other 09-14-2021 11:00-0400 SaO2% (BldA) [Mass fraction] 99 % Phillip Easterwood Other [facility] Other 09-14-2021 11:00-0400 Systolic blood pressure 118 mm[Hg] Phillip Easterwood Other [facility] Other 08-17-2021 11:00-0400 Body height 165.1 cm Phillip Easterwood Other [facility] Other 08-17-2021 11:00-0400 Body mass index (BMI) [Ratio] 40.93 kg/m2 Phillip Easterwood Other [facility] Other 08-17-2021 11:00-0400 Body temperature 98 [degF] Phillip Easterwood Other [facility] Other 08-17-2021 11:00-0400 Body weight 111.59 kg Phillip Carlos Other [facility] Other 08-17-2021 11:00-0400 Diastolic blood pressure 72 mm[Hg] Phillip Carlos Other [facility] Other 08-17-2021 11:00-0400 Respiratory rate 20 /min Phillip Carlos Other [facility] Other 08-17-2021 11:00-0400 SaO2% (BldA) [Mass fraction] 99 % Phillip [employer]ucks Other [facility] Other 08-17-2021 11:00-0400 Systolic blood pressure 124 mm[Hg] Phillip [employer] Other [facility] Other Encounters Encounter Date Encounter Type Care Provider Facility Start: 12-09-2024 End: 12-09-2024 Bamboo flowsheet Eduarda CISNEROS Work Phone: [facility] Start: 12-09-2024 End: 12-09-2024 Bamboo flowsheet Eduarda CISNEROS Work Phone: [facility] Start: 12-09-2024 End: 12-09-2024 Patient encounter procedure Eduarda CISNEROS Work Phone: [facility] Start: 12-09-2024 End: 12-09-2024 Periodic preventive med est patient 40-64yrs Eudarda CISNEROS Work Phone: [facility] Comment on above: Well woman exam with routine gynecological exam; Breast cancer screening by mammogram; H/O: hysterectomy; Pelvic pain in female; Anxiety, generalized Start: 12-02-2024 End: 12-02-2024 Patient encounter procedure [facility] Work Phone: Start: 12-02-2024 End: 12-02-2024 ambulatory Al Bowie MD Work Phone: [facility] Work Phone: Start: 11-18-2024 End: 11-18-2024 ambulatory Dougmame MCDANIEL Facility:[facility] Start: 11-18-2024 End: 11-18-2024 Patient encounter procedure Doug MCDANIEL [facility] Start: 06-29-2024 End: 06-29-2024 ambulatory [facility] Work Phone: Start: 06-29-2024 End: 06-29-2024 Patient encounter procedure [facility] Work Phone: Start: 05-22-2024 End: 05-22-2024 Bamboo flowsheet Tonya Brink NURSE ORTHOPEDIC [facility] Start: 05-22-2024 End: 05-22-2024 Bamboo flowsheet Tonya Brink [facility] Start: 05-22-2024 End: 05-22-2024 ambulatory Tonya Brink [facility] Comment on above: Tear of right rotato r cuff, unspecified tear extent, unspecified whether traumatic (Primary Dx) Start: 05-18-2024 End: 05-18-2024 Telephone encounter Tonya Brink [facility] Comment on above: re: PT today Start: 05-15-2024 End: 05-15-2024 ambulatory Anuja Kranthibley [facility] Comment on above: Tear of right rotato r cuff, unspecified tear extent, unspecified whether traumatic (Primary Dx) Start: 05-13-2024 End: 05-13-2024 Bamboo flowsheet Anuja Kelbley [facility] Start: 05-13-2024 End: 05-13-2024 Bamboo flowsheet Anuja Kelbley [facility] Start: 05-13-2024 End: 05-13-2024 ambulatory Anuja Kelbley [facility] Comment on above: Tear of right rotato r cuff, unspecified tear extent, unspecified whether traumatic (Primary Dx) Start: 05-11-2024 End: 05-11-2024 Bamboo flowsheet Tonya Bass [facility] Start: 05-11-2024 End: 05-11-2024 Bamboo flowsheet Tonya Bass [facility] Start: 05-11-2024 End: 05-11-2024 ambulatory Tonya Bass [facility] Comment on above: Tear of right rotato r cuff, unspecified tear extent, unspecified whether traumatic (Primary Dx) Start: 05-08-2024 End: 05-08-2024 Bamboo flowsheet Tonya Bass [facility] Start: 05-08-2024 End: 05-08-2024 Bamboo flowsheet Tonya Bass [facility] Start: 05-08-2024 End: 05-08-2024 ambulatory Tonya Bass [facility] Comment on above: Tear of right rotato r cuff, unspecified tear extent, unspecified whether traumatic (Primary Dx) Start: 05-06-2024 End: 05-06-2024 Bamboo flowsvivienne Aragon N[facility] Start: 05-06-2024 End: 05-06-2024 Bamboo flowsheet Anish Aragon [facility] Start: 05-06-2024 End: 05-06-2024 ambulatory Anish Aragon [facility] Comment on above: Tear of right rotato r cuff, unspecified tear extent, unspecified whether traumatic (Primary Dx) Start: 05-05-2024 End: 05-05-2024 Bamboo flowsheet Halley Thao PT [facility] Start: 05-05-2024 End: 05-05-2024 Bamboo flowsheet Halley Thao PT [facility] Start: 05-05-2024 End: 05-05-2024 ambulatory Halley Thao PT [facility] Comment on above: Tear of right rotato r cuff, unspecified tear extent, unspecified whether traumatic (Primary Dx) Start: 05-01-2024 End: 05-01-2024 ambulatory Tonya Bass [facility] Comment on above: Tear of right rotato r cuff, unspecified tear extent, unspecified whether traumatic (Primary Dx) Start: 05-01-2024 End: 05-01-2024 Bamboo flowsheet Tonya Bass [facility] Start: 05-01-2024 End: 05-01-2024 Bamboo flowsheet Tonya Bass [facility] Start: 04-29-2024 End: 04-29-2024 Bamboo flowsheet Anish Aragon [facility] Start: 04-29-2024 End: 04-29-2024 Bamboo flowsheet Anish Aragon [facility] Start: 04-29-2024 End: 04-29-2024 ambulatory Anish Aragon [facility] Comment on above: Tear of right rotato r cuff, unspecified tear extent, unspecified whether traumatic (Primary Dx) Start: 04-27-2024 End: 04-27-2024 ambulatory Anish Aragon [facility] Comment on above: Tear of right rotato r cuff, unspecified tear extent, unspecified whether traumatic (Primary Dx) Start: 04-22-2024 End: 04-22-2024 Bamboo flowsheet Tonya Bass [facility] Start: 04-22-2024 End: 04-22-2024 Bamboo flowsheet Tonya Bass [facility] Start: 04-22-2024 End: 04-22-2024 ambulatory Tonya Bass [facility] Comment on above: Tear of right rotato r cuff, unspecified tear extent, unspecified whether traumatic (Primary Dx) Start: 04-20-2024 End: 04-20-2024 Bamboo flowsheet Tonya Brink [facility] Start: 04-20-2024 End: 04-20-2024 Bamboo flowsheet Tonya Brink [facility] Start: 04-20-2024 End: 04-20-2024 ambulatory Tonya Brink [facility] Comment on above: Tear of right rotato r cuff, unspecified tear extent, unspecified whether traumatic (Primary Dx) Start: 04-17-2024 End: 04-17-2024 Bamboo flowsheet Halley Thao PT [facility] Start: 04-17-2024 End: 04-17-2024 Bamboo flowsheet Halley Thao PT [facility] Start: 04-17-2024 End: 04-17-2024 ambulatory Halley Thao PT [facility] Comment on above: Tear of right rotato r cuff, unspecified tear extent, unspecified whether traumatic (Primary Dx) Start: 04-15-2024 End: 04-15-2024 ambulatory Tonya Brink [facility] Comment on above: Tear of right rotato r cuff, unspecified tear extent, unspecified whether traumatic (Primary Dx) Start: 04-15-2024 End: 04-15-2024 Bamboo flowsheet Tonya Brink [facility] Start: 04-15-2024 End: 04-15-2024 Bamboo flowsheet Tonya Brink [facility] Start: 04-14-2024 End: 04-14-2024 ambulatory [facility] Work Phone: Start: 04-14-2024 End: 04-14-2024 Patient encounter procedure [facility] Work Phone: Start: 04-10-2024 End: 04-10-2024 Bamboo flowsheet Halley Thao PT [facility] Start: 04-10-2024 End: 04-10-2024 Bamboo flowsheet Halley Thao PT [facility] Start: 04-10-2024 End: 04-10-2024 ambulatory Halley Thao PT [facility] Comment on above: Tear of right rotato r cuff, unspecified tear extent, unspecified whether traumatic (Primary Dx) Start: 04-08-2024 End: 04-08-2024 Bamboo flowsheet Tonya Brink [facility] Start: 04-08-2024 End: 04-08-2024 Bamboo flowsheet Tonya Brink [facility] Start: 04-08-2024 End: 04-08-2024 ambulatory Tonya Brink N[facility] Comment on above: Tear of right rotato r cuff, unspecified tear extent, unspecified whether traumatic (Primary Dx) Start: 04-06-2024 End: 04-06-2024 Bamboo flowsheet Tonya Brink [facility] Start: 04-06-2024 End: 04-06-2024 Bamboo flowsheet Tonya Brink [facility] Start: 04-06-2024 End: 04-06-2024 ambulatory Tonya Brink [facility] Comment on above: Tear of right rotato r cuff, unspecified tear extent, unspecified whether traumatic (Primary Dx) Start: 04-03-2024 End: 04-03-2024 Bamboo flowsheet Tonya Brink [facility] Start: 04-03-2024 End: 04-03-2024 Bamboo flowsheet Tonya Brink [facility] Start: 04-03-2024 End: 04-03-2024 ambulatory Tonya Brink N[facility] Comment on above: Tear of right rotato r cuff, unspecified tear extent, unspecified whether traumatic (Primary Dx) Start: 03-31-2024 End: 03-31-2024 Bamboo flowsheet Tonya Brink N[facility] Start: 03-31-2024 End: 03-31-2024 Bamboo flowsheet Tonya Zhangink NUR[facility]OP[facility]IC [facility] Start: 03-31-2024 End: 03-31-2024 ambulatory Tonya Zhangink N[facility]OP[facility] Comment on above: Tear of right rotato r cuff, unspecified tear extent, unspecified whether traumatic (Primary Dx) Start: 03-27-2024 End: 03-27-2024 Bamboo flowsheet Halley Thao PT [facility] Start: 03-27-2024 End: 03-27-2024 Bamboo flowsheet Halley Thao PT [facility] Start: 03-27-2024 End: 03-27-2024 ambulatory Halley Thao PT [facility] Comment on above: Tear of right rotato r cuff, unspecified tear extent, unspecified whether traumatic (Primary Dx) Start: 03-25-2024 End: 03-25-2024 Bamboo flowsheet Anuja Mattsony NURSE [facility]THOPEDIC [facility] Start: 03-25-2024 End: 03-25-2024 Bamboo flowsheet Anuja Crisostomobley NUR[facility]OP[facility]IC [facility] Start: 03-25-2024 End: 03-25-2024 ambulatory Anuja Craft N[facility]OP[facility]IC [facility] Comment on above: Tear of right rotato r cuff, unspecified tear extent, unspecified whether traumatic (Primary Dx) Start: 03-23-2024 End: 03-23-2024 Bamboo flowsheet Tonya Bass N[facility]OP[facility]IC [facility] Start: 03-23-2024 End: 03-23-2024 Bamboo flowsheet Tonya Bass N[facility]IC [facility] Start: 03-23-2024 End: 03-23-2024 ambulatory Tonya Bass N[facility]OP[facility] Comment on above: Tear of right rotato r cuff, unspecified tear extent, unspecified whether traumatic (Primary Dx) Start: 03-16-2024 End: 03-16-2024 Bamboo flowsheet Tonya Bass N[facility] Start: 03-16-2024 End: 03-16-2024 Bamboo flowsheet Tonya Bass N[facility] Start: 03-16-2024 End: 03-16-2024 ambulatory Tonya Bass N[facility] Comment on above: Tear of right rotato r cuff, unspecified tear extent, unspecified whether traumatic (Primary Dx) Start: 03-13-2024 End: 03-13-2024 Bamboo flowsheet Anish Aragon N[facility]OP[facility]IC [facility] Start: 03-13-2024 End: 03-13-2024 Bamboo flowsheet Anish Aragon N[facility] Start: 03-13-2024 End: 03-13-2024 ambulatory Anish Aragon N[facility] Comment on above: Tear of right rotato r cuff, unspecified tear extent, unspecified whether traumatic (Primary Dx) Start: 03-11-2024 End: 03-11-2024 Bamboo flowsheet Halley Thao PT [facility] Start: 03-11-2024 End: 03-11-2024 Bamboo flowsheet Halley Thao PT [facility] Start: 03-11-2024 End: 03-11-2024 ambulatory Halley Thao PT [facility] Comment on above: Tear of right rotato r cuff, unspecified tear extent, unspecified whether traumatic (Primary Dx) Start: 03-10-2024 End: 03-10-2024 ambulatory MD Al Bowie Work Phone: [facility] Work Phone: Start: 03-10-2024 End: 03-10-2024 Patient encounter procedure MD Al Bowie Work Phone: [facility] Work Phone: Start: 03-09-2024 End: 03-09-2024 Bamboo flowsheet Tonya Brink NURSE ORTHOPEDIC [facility] Start: 03-09-2024 End: 03-09-2024 Bamboo flowsheet Tonya Brink NUR[facility]OPEDIC [facility] Start: 03-09-2024 End: 03-09-2024 ambulatory Tonya Brink N[facility]OPEDIC [facility] Comment on above: Tear of right rotato r cuff, unspecified tear extent, unspecified whether traumatic (Primary Dx) Start: 03-04-2024 End: 03-04-2024 Bamboo flowsheet Tonya Brink N[facility] Start: 03-04-2024 End: 03-04-2024 Bamboo flowsheet Tonya Brink N[facility]OP[facility]IC [facility] Start: 03-04-2024 End: 03-04-2024 ambulatory Tonya Brink N[facility]OP[facility]IC [facility] Comment on above: Tear of right rotato r cuff, unspecified tear extent, unspecified whether traumatic (Primary Dx) Start: 03-02-2024 End: 03-02-2024 Bamboo flowsheet Tonya Brink N[facility] Start: 03-02-2024 End: 03-02-2024 Bamboo flowsheet Tonya Brink N[facility] Start: 03-02-2024 End: 03-02-2024 ambulatory Tonya Brink N[facility] Comment on above: Tear of right rotato r cuff, unspecified tear extent, unspecified whether traumatic (Primary Dx) Start: 02-28-2024 End: 02-28-2024 Bamboo flowsheet Halley Thao PT [facility] Start: 02-28-2024 End: 02-28-2024 Bamboo flowsheet Halley Thao PT [facility] Start: 02-28-2024 End: 02-28-2024 ambulatory Halley Master PT [facility] Comment on above: Tear of right rotato r cuff, unspecified tear extent, unspecified whether traumatic (Primary Dx) Start: 02-26-2024 End: 02-26-2024 Bamboo flowsheet Tonya Brink N[facility]OPEDIC [facility] Start: 02-26-2024 End: 02-26-2024 Bamboo flowsheet Tonya Brink N[facility] Start: 02-26-2024 End: 02-26-2024 ambulatory Tonya Brink N[facility] Comment on above: Tear of right rotato r cuff, unspecified tear extent, unspecified whether traumatic (Primary Dx) Start: 02-24-2024 End: 02-24-2024 Bamboo flowsheet Tonya Brink N[facility] Start: 02-24-2024 End: 02-24-2024 Bamboo flowsheet Tonya Brink N[facility] Start: 02-24-2024 End: 02-24-2024 ambulatory Tonya Brink N[facility] Comment on above: Tear of right rotato r cuff, unspecified tear extent, unspecified whether traumatic (Primary Dx) Start: 02-19-2024 End: 02-19-2024 ambulatory Tonya Brink N[facility] Comment on above: Tear of right rotato r cuff, unspecified tear extent, unspecified whether traumatic (Primary Dx) Start: 02-18-2024 End: 02-19-2024 ambulatory Tonya Brink N[facility]OP[facility] Comment on above: Tear of right rotato r cuff, unspecified tear extent, unspecified whether traumatic (Primary Dx) Start: 02-18-2024 End: 02-18-2024 Bamboo flowsheet Tonya Brink N[facility]OP[facility] Start: 02-18-2024 End: 02-18-2024 Bamboo flowsheet Tonya Brink N[facility] Start: 02-14-2024 End: 02-14-2024 Bamboo flowsheet Tonya Brink N[facility] Start: 02-14-2024 End: 02-14-2024 Bamboo flowsheet Tonya Brink N[facility] Start: 02-14-2024 End: 02-14-2024 ambulatory Tonya Bass N[facility]OP[facility]IC [facility] Comment on above: Tear of right rotato r cuff, unspecified tear extent, unspecified whether traumatic (Primary Dx) Start: 02-12-2024 End: 02-12-2024 Bamboo flowsheet Tonya Zhangink N[facility]OP[facility]IC [facility] Start: 02-12-2024 End: 02-12-2024 Bamboo flowsheet Tonya Zhangink NUR[facility] Start: 02-12-2024 End: 02-12-2024 ambulatory Tonya Zhangink N[facility] Comment on above: Tear of right rotato r cuff, unspecified tear extent, unspecified whether traumatic (Primary Dx) Start: 02-06-2024 End: 02-06-2024 Bamboo flowsheet Tonya Brink N[facility] Start: 02-06-2024 End: 02-06-2024 Bamboo flowsheet Tonya Zhangink N[facility] Start: 02-06-2024 End: 02-06-2024 ambulatory Tonya Zhangink N[facility] Comment on above: Tear of right rotato r cuff, unspecified tear extent, unspecified whether traumatic (Primary Dx) Start: 02-04-2024 End: 02-04-2024 Bamboo flowsheet Halley Thao PT [facility] Start: 02-04-2024 End: 02-04-2024 Bamboo flowsheet Halley Thao PT [facility] Start: 02-04-2024 End: 02-04-2024 ambulatory Halley Thao PT [facility] Comment on above: Tear of right rotato r cuff, unspecified tear extent, unspecified whether traumatic (Primary Dx) Start: 01-28-2024 End: 01-28-2024 ambulatory MD Al Bowie Work Phone: [facility] Work Phone: Start: 01-28-2024 End: 01-28-2024 Patient encounter procedure MD Al Bowie Work Phone: [facility] Work Phone: Start: 12-24-2023 End: 12-24-2023 ambulatory MD Al Bowie Work Phone: [facility] Work Phone: Start: 12-24-2023 End: 12-24-2023 Patient encounter procedure MD Al Bowie Work Phone: [facility] Work Phone: Start: 12-24-2023 End: 12-24-2023 Patient encounter procedure MD Al Bowie Work Phone: [facility] [place] [facility] Start: 12-24-2023 End: 12-24-2023 ambulatory MD Al Bowie Work Phone: [facility] Work Phone: Start: 12-23-2023 End: 12-23-2023 ambulatory ANISH MAHESH Not Available Start: 12-19-2023 End: 12-19-2023 ambulatory HALLEY THAO Not Available Start: 12-18-2023 End: 12-18-2023 Admission to same day surgery center MD [facility] Bow[facility] [place] Start: 12-18-2023 End: 12-18-2023 ambulatory MD Al Bowie Work Phone: [facility] Work Phone: Start: 12-17-2023 Non-patient / Non-visit MD Arnol Bowie Work Phone: [facility] Work Phone: Start: 12-11-2023 End: 12-11-2023 ambulatory MD Al Bowie Work Phone: [facility] Work Phone: Start: 12-11-2023 End: 12-11-2023 Departed Referred MD Al Bowie Work Phone: [facility] [place] Start: 12-03-2023 End: 12-03-2023 ambulatory MD Al Bowie Work Phone: [facility] Work Phone: Start: 12-03-2023 End: 12-03-2023 Patient encounter procedure MD Al Bowie Work Phone: [facility] Work Phone: Start: 11-27-2023 End: 11-27-2023 ambulatory MD Al Bowie Work Phone: [facility] Work Phone: Start: 11-27-2023 End: 11-27-2023 Patient encounter procedure MD Al Bowie Work Phone: [facility]-Pre-Surgical Testing Work Phone: Start: 11-13-2023 End: 11-13-2023 ambulatory FAREED ZULEMA Not Available Start: 10-29-2023 End: 10-29-2023 Patient encounter procedure Doug Mar MCDANIEL [facility] Start: 10-01-2023 End: 10-01-2023 ambulatory MD Al Bowie Work Phone: [facility] Work Phone: Start: 10-01-2023 End: 10-01-2023 Patient encounter procedure MD Al Bowie Work Phone: [facility] Work Phone: Start: 09-26-2023 End: 09-26-2023 ambulatory MD Al Bowie Work Phone: [facility] Work Phone: Start: 09-26-2023 End: 09-26-2023 Patient encounter procedure MD Al Bowie Work Phone: [facility]-MRI [address] Work Phone: Start: 08-19-2023 End: 08-19-2023 ambulatory [facility] Work Phone: Start: 08-19-2023 End: 08-19-2023 Patient encounter procedure [facility] Work Phone: Start: 07-29-2023 End: 07-29-2023 Patient encounter procedure [facility] Vascular Surgery Work Phone: Start: 05-09-2023 End: 05-09-2023 ambulatory Heavenly Pitt Other [facility] Other Start: 05-09-2023 Office outpatient vi sit 15 minutes Heavenly Pitt [facility] Start: 01-08-2023 End: 01-08-2023 Lab Drop off Al Bowie [facility] Start: 12-13-2022 End: 12-13-2022 ambulatory PHYSICIAN NO [facility] Work Phone: Start: 12-13-2022 End: 12-13-2022 Patient encounter procedure PHYSICIAN NO [facility] Start: 11-13-2022 End: 11-13-2022 Patient encounter procedure Doug MCDANIEL [facility] Start: 10-26-2022 End: 10-26-2022 Patient encounter procedure Doug MCDANIEL [facility] Start: 09-27-2022 Encounter for preprocedural laboratory examination DR FAREED RODRIGES . [facility] Start: 09-27-2022 End: 09-28-[address] FAREED RODRIGES . Facility:[facility] Start: 09-24-2022 End: 09-25-[address] FAREED RODRIGES . Facility:[facility] Start: 09-24-2022 End: 09-25-2022 Encounter for preprocedural laboratory examination DR FAREED RODRIGES . Facility:[facility] Start: 09-17-2022 Encounter for preprocedural cardiovascular examination DR FAREED RODRIGES . [facility] Start: 09-13-2022 End: 09-14-[address] FAREED RODRIGES . Facility:[facility] Start: 08-27-2022 End: 08-28-[address] FAREED RODRIGES . Facility:[facility] Start: 08-20-2022 Office outpatient ne w 30 minutes Janna Olexa [facility] Start: 08-20-2022 End: 08-20-2022 ambulatory PHYSICIAN NO [facility] Work Phone: Start: 08-20-2022 End: 08-20-2022 Patient encounter procedure PHYSICIAN NO [facility] Start: 08-07-2022 End: 08-07-2022 ambulatory PHILLIP EASTERWOOD Facility:[facility] Start: 09-14-2021 End: 09-14-2021 ambulatory Phillip Easterwood Other [facility] Other Start: 09-14-2021 Office outpatient vi sit 15 minutes Phillip Easterwood [facility] Start: 08-17-2021 End: 08-17-2021 ambulatory Phillip Easterwood Other [facility] Other Start: 08-17-2021 Office outpatient vi sit 25 minutes Phillip [facility] Procedures Date Procedure Procedure Detail Performing Clinician Start: 12-02-2024 Screening mammograph y of bilateral breasts Al Bowie MD Work Phone: Start: 11-18-2024 Cystoscopy Doug JONES Start: 12-24-2023 Plain X-ray of right shoulder MD Al Bowie Work Phone: Start: 12-18-2023 Procedure on shoulder joint MD Al Bowie Work Phone: Start: 06-04-2024 Cystourethroscopy wi th dilation of urethral stricture Doug MCDANIEL Start: 09-26-2023 MRI of right shoulder Damien Bowie Work Phone: Start: 12-13-2022 Plain X-ray of right shoulder PHYSICIAN NO FAMILY Start: 10-18-2022 Transurethral resect ion of bladder neoplasm Doug MCDANIEL Start: 08-20-2022 Plain X-ray of left shoulder PHYSICIAN NO FAMILY Start: 08-20-2022 Plain X-ray of left humerus PHYSICIAN NO FAMILY Appendectomy Doug MCDANIEL Arthroscopy of knee Doug MCDANIEL Comment on above: right 2009 Fracture of upper li mb (disorder) Doug MCDANIEL Comment on above: left humerus, danette in place H/O: hysterectomy H/O: hysterectomy Eduarda CISNEROS Work Phone: Hysterectomy Doug MCDANIEL Ligation of fallopian tube P atrick JESSICA Plan of Treatment Date Care Activity Detail Author Start: 12-13-2025 End: 12-13-2025 Patient encounter procedure 12/13/2025 2:00 PM EDT Procedure Visit [facility] [address] [facility] [address] Eduarda Paul PA [address] [place], [facility] Start: 12-09-2024 End: 06-11-2025 US Pelvis US Pelvis w/ TV Imaging Routine Pelvic pain in female Expected: 12/09/2024, Expires: 06/11/2025 [facility] Comment on above: Expected: 12/09/2024 , Expires: 06/11/2025 Start: 12-09-2024 End: 12-09-2024 Patient encounter procedure 12/09/2024 1:00 PM EDT Office Visit [facility] [address] [facility] [id number] Eduarda Paul, PA [address] [facility] [place] [address] Arrived [facility] Comment on above: Arrived Start: 11-16-2024 End: 11-16-2024 Patient encounter procedure 11/16/2024 2:00 PM EDT Office Visit [facility] [address] [facility] [id number] Fareed Rodriges DO [address] [facility] [place] [address] [facility] Start: 06-23-2024 End: 06-23-2024 ambulatory 06/23/2024 2:30 PM EST Treatment [facility] [address] [facility] [address] [place] [address] Halley Thao, PT [facility] Start: 06-18-2024 End: 06-18-2024 ambulatory 06/18/2024 9:00 AM EST Treatment [facility] [address] [facility] [address] [place] [address] Halley Thao, PT [facility] Start: 06-16-2024 End: 06-16-2024 ambulatory 06/16/2024 9:00 AM EST Treatment [facility] [address] [facility] [address] [place] [address] Tonya Bass, NURSE ORTHOPEDIC [facility] Start: 06-11-2024 End: 06-11-2024 ambulatory 06/11/2024 9:00 AM EST Treatment [facility] [address] [facility] [address] [place] [address] Halley Thao, PT [facility] Start: 06-09-2024 End: 06-09-2024 ambulatory 06/09/2024 9:00 AM EST Treatment [facility] [address] [facility] [address] [place] [address] Tonya Bass, NURSE ORTHOPEDIC [facility] Start: 06-04-2024 End: 06-04-2024 ambulatory 06/04/2024 9:00 AM EST Treatment [facility] [address] [facility] [address] [place] [address] Tonya Bass, NURSE ORTHOPEDIC [facility] Start: 06-01-2024 End: 06-01-2024 ambulatory 06/01/2024 9:00 AM EST Treatment [facility] [address] [address] [place] [address] Tonya Bass, NURSE ORTHOPEDIC [facility] Start: 05-22-2024 End: 05-22-2024 ambulatory 05/22/2024 10:00 AM EST Treatment [facility] [address] [place] [address] Tonya Bass, NURSE ORTHOPEDIC [facility] Start: 05-18-2024 End: 05-18-2024 ambulatory 05/18/2024 10:00 AM EST Treatment [facility] [address] [place] [address] Tonya Bass, NURSE ORTHOPEDIC [facility] Start: 05-15-2024 End: 05-15-2024 ambulatory 05/15/2024 2:30 PM EST Treatment [facility] [address] [place] [address] Anuja Craft, NURSE ORTHOPEDIC [facility] Start: 05-13-2024 End: 05-13-2024 ambulatory [facility] Comment on above: Arrived Start: 05-11-2024 End: 05-11-2024 ambulatory [facility] Comment on above: Arrived Start: 05-08-2024 End: 05-08-2024 ambulatory [facility] Comment on above: Arrived Start: 05-06-2024 End: 05-06-2024 ambulatory [facility] Comment on above: Tear of right rotato r cuff, unspecified tear extent, unspecified whether traumatic (Primary Dx) Start: 05-05-2024 End: 05-05-2024 ambulatory 05/05/2024 9:00 AM EST Treatment [facility] [address] [place] [address] Halley Thao, PT [facility] Start: 05-04-2024 End: 05-04-2024 ambulatory 05/04/2024 2:30 PM EST Treatment [facility] [address] [place] [address] Tonya Bass, NURSE ORTHOPEDIC [facility] Start: 05-01-2024 End: 05-01-2024 ambulatory 05/01/2024 2:30 PM EST Treatment [facility] [address] [facility] [address] [place] [address] Anish Aragon, NURSE ORTHOPEDIC [facility] Start: 04-29-2024 End: 04-29-2024 ambulatory [facility] Comment on above: Tear of right rotato r cuff, unspecified tear extent, unspecified whether traumatic (Primary Dx) Start: 04-27-2024 End: 04-27-2024 ambulatory 04/27/2024 9:00 AM EST Treatment [facility] [address] [facility] [address] [place] [address] Anish Aragon, NURSE ORTHOPEDIC [facility] Start: 04-22-2024 End: 04-22-2024 ambulatory 04/22/2024 10:00 AM EST Treatment [facility] [address] [facility] [address] [place] [address] Tonya Bass, NURSE ORTHOPEDIC [facility] Start: 04-20-2024 End: 04-20-2024 ambulatory [facility] Start: 04-17-2024 End: 04-17-2024 ambulatory 04/17/2024 9:30 AM EST Treatment [facility] [address] [facility] [address] [place] [address] Halley Thao, PT [facility] Start: 04-15-2024 End: 04-15-2024 ambulatory 04/15/2024 9:30 AM EST Treatment [facility] [address] [facility] [address] [place] [address] Tonya Bass, NURSE ORTHOPEDIC [facility] Start: 04-13-2024 End: 04-13-2024 ambulatory [facility] Start: 04-10-2024 End: 04-10-2024 ambulatory 04/10/2024 9:00 AM EST Treatment [facility] [address] [place] [address] Halley Thao, PT [facility] Start: 04-08-2024 End: 04-08-2024 ambulatory 04/08/2024 10:00 AM EST Treatment [facility] [address] [place] [address] Tonya Bass, NURSE ORTHOPEDIC [facility] Start: 04-06-2024 End: 04-06-2024 ambulatory 04/06/2024 10:00 AM EST Treatment [facility] [address] [place] [address] Tonya Bass, NURSE ORTHOPEDIC [facility] Start: 04-03-2024 End: 04-03-2024 ambulatory 04/03/2024 9:00 AM EST Treatment [facility] [address] [place] [address] Tonya Bass, NURSE ORTHOPEDIC [facility] Start: 03-31-2024 End: 03-31-2024 ambulatory [facility] Comment on above: Arrived Start: 03-27-2024 End: 03-27-2024 ambulatory [facility] Start: 03-25-2024 End: 03-25-2024 ambulatory [facility] Start: 03-23-2024 End: 03-23-2024 ambulatory [facility] Comment on above: Arrived Start: 03-20-2024 End: 03-20-2024 ambulatory 03/20/2024 9:30 AM EDT Treatment [facility] [address] [place] [address] Tonya Bass, NURSE ORTHOPEDIC [facility] Start: 03-18-2024 End: 03-18-2024 ambulatory 03/18/2024 9:30 AM EDT Treatment [facility] [address] [place] [address] Tonya Bass, NURSE ORTHOPEDIC [facility] Start: 03-16-2024 End: 03-16-2024 ambulatory [facility] Comment on above: Arrived Start: 03-13-2024 End: 03-13-2024 ambulatory [facility] Start: 03-11-2024 End: 03-11-2024 ambulatory 03/11/2024 10:30 AM EDT Treatment [facility] [address] [place] [address] Halley Thao, PT [facility] Start: 03-09-2024 End: 03-09-2024 ambulatory [facility] Start: 03-06-2024 End: 03-06-2024 ambulatory 03/06/2024 9:00 AM EDT Treatment [facility] [address] [place] [address] Halley Thao, PT [facility] Start: 03-04-2024 End: 03-04-2024 ambulatory [facility] Comment on above: Arrived Start: 03-02-2024 End: 03-02-2024 ambulatory [facility] Comment on above: Arrived Start: 02-28-2024 End: 02-28-2024 ambulatory 02/28/2024 9:30 AM EDT Treatment [facility] [address] [place] [address] Halley Thao, PT [facility] Start: 02-26-2024 End: 02-26-2024 ambulatory 02/26/2024 9:30 AM EDT Treatment [facility] [address] [place] [address] Tonya Bass, NURSE ORTHOPEDIC [facility] Start: 02-24-2024 End: 02-24-2024 ambulatory [facility] Comment on above: Arrived Start: 02-21-2024 End: 02-21-2024 ambulatory 02/21/2024 9:30 AM EDT Treatment [facility] [address] [place] [address] Tonya Bass NURSE ORTHOPEDIC [facility] Start: 02-19-2024 End: 02-19-2024 ambulatory 02/19/2024 9:30 AM EDT Treatment [facility] [address] [facility] [address] [place] [address] Tonya Bass NURSE ORTHOPEDIC [facility] Start: 02-18-2024 End: 02-18-2024 ambulatory 02/18/2024 3:30 PM EDT Treatment [facility] [address] [facility] [address] [place] [address] Tonya Bass NURSE ORTHOPEDIC [facility] Start: 02-17-2024 End: 02-17-2024 ambulatory 02/17/2024 10:00 AM EDT Treatment [facility] [address] [facility] [address] [place] [address] Tonya Bass NURSE ORTHOPEDIC [facility] Start: 02-14-2024 End: 02-14-2024 ambulatory [facility] Comment on above: Arrived Start: 02-12-2024 End: 02-12-2024 ambulatory 02/12/2024 9:30 AM EDT Treatment [facility] [address] [facility] [address] [place] [address] Tonya Bass NURSE ORTHOPEDIC [facility] Start: 02-06-2024 End: 02-06-2024 ambulatory 02/06/2024 10:00 AM EDT Treatment [facility] [address] [facility] [address] [place] [address] Tonya Bass NURSE ORTHOPEDIC [facility] Start: 12-24-2023 Plain X-ray of right shoulder XR shoulder RT min 2V* [facility] Start: 12-24-2023 XR Shoulder - right Views [facility] Start: 12-18-2023 End: 12-18-2023 [facility] Start: 12-11-2023 Procedure on shoulde r joint OR Shoulder Arthroscopy (Right) [facility] MR Shoulder - right WO contrast [facility] Patient Education Know your Meds [facility] Work Phone: THIN PREP TIS PAP AN D HR HPV DNA THIN PREP TIS PAP AND HR HPV DNA Pathology and Cytology Routine Well woman exam with routine gynecological exam Ordered: 12/09/2024 [facility] [employer] Work Phone: Comment on above: Ordered: 12/09/2024 US Lower extremity vein - bilateral [facility] Immunizations Immunization Date Immunization Notes Care Provider Zoe del rosario 01-24-2012 tetanus toxoid, reduced diphtheria toxoid, and acellular pertussis vaccine, adsorbed Doug MCDANIEL [facility] [place] NEGATED: Highlighted row has not occurred!06-18-2023 influenza virus vaccine, unspecified formulation Doug [facility] NEGATED: Highlighted row has not occurred!04-09-2023 influenza virus vaccine, unspecified formulation Doug [facility] NEGATED: Highlighted row has not occurred!02-14-2023 influenza virus vaccine, unspecified formulation Doug Hopkins [facility] Payers Date Payer Category Payer Self-pay 2019 Private Health Insurance [id number] 2019 Private Health Insurance [id number] 1977 Unknown [id number] 2.16.84 0.1.347654.3.579.2.593 1977 Unknown [id number] 2.16.84 0.1.244347.3.579.2.593 1977 Unknown [id number] 2.16.84 0.1.381998.3.579.2.593 1977 Unknown [id number] 2.16.84 0.1.016213.3.579.2.593 1977 Unknown [id number] 2.16.84 0.1.426372.3.579.2.59 1977 Unknown [id number] 2.16.84 0.1.558598.3.579.2. 1977 Unknown [id number] 2.16.84 0.1.176682.3.579.2.1258 1977 Unknown [id number] 2.16.84 0.1.921474.3.579.2.1258 1977 Unknown [id number] 2.16.84 0.1.674526.3.579.2.1258 1977 Unknown [id number] 2.16.84 0.1.305355.3.579.2.1258 1977 Unknown [id number] 2.16.84 0.1.717588.3.579.2.1258 1977 Unknown [id number] 2.16.84 0.1.527547.3.579.2.1258 1977 Unknown [id number] 2.16.84 0.1.548721.3.579.2.1258 1977 Unknown [id number] 2.16.84 0.1.252089.3.579.2.1258 1977 Unknown [id number] 2.16.84 0.1.454256.3.579.2.1258 1977 Unknown [id number] 2.16.84 0.1.974829.3.579.2.1258 1977 Unknown [id number] 2.16.84 0.1.842209.3.579.2.1258 1977 Unknown [id number] 2.16.84 0.1.650386.3.579.2.1258 1977 Unknown [id number] 2.16.84 0.1.487226.3.579.2.1258 1977 Unknown [id number] 2.16.84 0.1.524654.3.579.2.1258 1977 Unknown [id number] 2.16.84 0.1.150200.3.579.2.1258 1977 Unknown [id number] 2.16.84 0.1.835390.3.579.2.1258 1977 Unknown [id number] 2.16.84 0.1.225301.3.579.2.1258 1977 Unknown [id number] 2.16.84 0.1.171020.3.579.2.1258 1977 Unknown [id number] 2.16.84 0.1.800095.3.579.2.1258 1977 Unknown [id number] 2.16.84 0.1.272808.3.579.2.1258 1977 Unknown [id number] 2.16.84 0.1.995925.3.579.2.1258 1977 Unknown [id number] 2.16.84 0.1.887437.3.579.2.1258 1977 Unknown [id number] 2.16.84 0.1.765065.3.579.2.1258 1977 Unknown [id number] 2.16.84 0.1.952968.3.579.2.1258 1977 Unknown [id number] 2.16.84 0.1.451034.3.579.2.1258 1977 Unknown [id number] 2.16.84 0.1.227953.3.579.2.1258 1977 Unknown [id number] 2.16.84 0.1.405122.3.579.2.1258 1977 Unknown [id number] 2.16.84 0.1.414212.3.579.2.1258 1977 Unknown [id number] 2.16.84 0.1.284427.3.579.2.1258 1977 Unknown [id number] 2.16.84 0.1.248605.3.579.2.9 1977 Unknown [id number] 2.16.84 0.1.015727.3.579.2.1258 1977 Unknown [id number] 2.16.84 0.1.247908.3.579.2.1258 1977 Unknown [id number] 2.16.84 0.1.273379.3.579.2.1258 1977 Unknown [id number] 2.16.84 0.1.661963.3.579.2.1258 1977 Unknown [id number] 2.16.84 0.1.366616.3.579.2.1258 1977 Unknown [id number] 2.16.84 0.1.696493.3.579.2.1258 1977 Unknown [id number] .16.84 0.1.589292.3.579.2.1258 1977 Unknown [id number] 2.16.84 0.1.101975.3.579.2.1258 1977 Unknown [id number] .16.84 0.1.012725.3.579.2.1258 1977 Unknown [id number] 2.16.84 0.1.903176.3.579.2.1258 1977 Unknown [id number] .16.8 40.1.744079.3.579.2.727 1959 Private Health Insurance [id number] .16.840.1.677545.19 Unknown [id number] .16.8 40.1.086805.3.579.2.531 Unknown [id number] .16.8 40.1.752483.3.579.2.531 Unknown [id number] .16.8 40.1.837714.3.579.2.531 Unknown [id number] 2.16.8 40.1.098750.3.579.2.531 Social History Date Type Detail Facility Unknown if ever smoked [facility] Other Start: 11-14-2022 End: 12-09-2024 [facility] Assigned At [facility] Start: 1975 Sex Assigned At Female F [facility] Start: 10-10-2022 End: 11-14-2022 Tobacco smoking status Never smoked tobacco (finding) [facility] Tobacco smoking status Never [facility] Start: 11-13-2023 End: 12-09-2024 Alcoholic beverage intake Lifetime non-drinker (finding) [facility] Start: 11-14-2022 End: 12-09-2024 History of Social function [facility] Start: 11-14-2022 Alcohol Comment Caffeine intak e: 2-3 cups per day [facility] Start: 1975 Sex assigned at Not on file N [facility] Start: 09-07-2009 End: 04-14-2024 Sex Female (finding) [facility] Sexual Orientation [facility] Medical Equipment Procedure Code Equipment Code Equipment Origin al Text Equipment Identifier Dates Arthroscopy, shoulder Tendon/ligament bone anchor, bioabsorbable [id number] [facility] Start: 12-18-2023 Goals Date Patient Goal Desired Activity /State Functional Status Date Assessment Result Facility 11-13-2022 Functional Status N/A [facility] 10-26-2022 Functional Status N/A [facility] Clinical Notes 08-17-2021 to 12-09-2024 AMELIA Jefferson - 12/09/2024 1:00 PM EDTTelephone Encounter - Amelia Jaimes - 05/18/2024 9:46 AM ESTTelephone Encounter - Amelia Jaimes - 05/18/2024 9:46 AM EST Note Date & Type Note Facility 12-09-2024 History of Presen t illness Narrative Reason for Appointment: Patient ID: Yokasta Zheng is a 49 y.o. female who [...] Bilateral 08/2020 Varithena/microfoam chemical ablation TUBAL LIGATION 2016 REVIEW OF SYSTEMS Review of Systems: Review [...] nursing note reviewed. 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 Vitals: Estimated body mass index is 40.6 kg/m as calculated from the following: Height as [...] plan of care and will follow up quentin US complete No orders of the defined types were placed in this encounter. Follow Up: Patient is to return in one year for annual unless needed otherwise. Documented by Enid Laughlin MA on behalf of: AMELIA Jefferson documented in this encounter [facility] 11-18-2024 Hospital Discharg e instructions Patient Education 11/18/2024 08:02:34 Cancer Screening for Females Cancer Screening: Female A cancer screening is a test or exam that checks for cancer. Work with your health care provider to create a cancer screening schedule that protects your health. Who should have screening? All females should be considered for screening of certain cancers, including breast cancer, cervical cancer, colorectal cancer, endometrial cancer, lung cancer, and skin cancer. Your health care provider may recommend screenings for other types of cancer if: You have had cancer before. You have a family member with cancer. You have genes that could increase the risk of cancer. You have risk factors for certain cancers, such as current or past use of tobacco products or being overweight. What are the benefits of screening? Cancer screening is done to look for cancer in the very early stages, before it spreads and becomes harder to treat and before you would start to notice symptoms. Finding cancer early improves the chances of successful treatment. It may save your life. When should I be screened for cancer? When you should be screened for cancer depends on: Your age. Your medical history and your family's medical history. Certain lifestyle factors, such as smoking or other use of tobacco products. Environmental exposure, such as to asbestos. How is screening done? Breast cancer Breast cancer screening is done with a test that takes images of breast tissue (mammogram) using an X-ray machine. Here are some screening guidelines for females at average risk: When you are 40 44 years old, you should be given the choice to start having mammograms. When you are 45 54 years old, you should have a mammogram every year. You may start having mammograms before you are 45 years old if you have risk factors for breast cancer, such as having an immediate family member with breast cancer. At 55 years old or older, you should have a mammogram every 1 2 years for as long as you are in good health and have a life expectancy of 10 years or longer. It is important to know what your breasts look and feel like so you can report any changes to your health care provider. Cervical cancer Cervical cancer screening is done with an HPV (human papillomavirus) test to identify the virus that causes cervical cancer. To perform the test, a health care provider takes a swab of cells from the lowest part of the uterus (cervix) during a pelvic exam. This test may be performed along with a Pap test. This testchecks for abnormalities in the cervix. All females at average risk should consider being screened for cervical cancer starting no later than 25 years old and continuing until 65 years old. Screening should not begin earlier than 21 years old. You will have tests every 3 5 years, depending on your results and the type of screening test. Talk with your health care provider about which screening test is right for you and how often you should be screened. ?If you have had the HPV vaccine, you will still be screened for cervical cancer and follow normal screening recommendations. You do not need to be screened for cervical cancer if any of the following apply to you: You are older than 65 years old and you have had normal screening tests in the past 10 years with no serious cervical precancer or cancer in the last 25 years. Your cervix and uterus have been removed, and you have never had cervical cancer or abnormal cells that could become cancer (precancerous cells). Colorectal cancer Colorectal cancer screening looks for cancer or for growths called polyps that often form before cancer starts. Tests to look for cancer or polyps include: Colonoscopy or flexible sigmoidoscopy. For these procedures, a flexible tube with a small camera is inserted into the rectum. CT colonography. This test uses X-rays and contrast dye to check the colon for polyps. Tests to look for cancer in the stool (feces) include: Guaiac-based fecal occult blood test (FOBT). This test can find blood in stool. It can be done at home with a kit. Fecal immunochemical test (FIT). This test can find blood in stool. For this test, you will need to collect stool samples at home. Stool DNA test. This test looks for blood in stool and any changes in DNA that can lead to colon cancer. For this test, you will need to collect a stool sample at home and send it to a lab. All adults should have screenings starting at 45 years old and continuing through 75 years old. For females 76 85 years old, the decision to be screened should be based on a person's preferences, life expectancy, overall health, and prior screening history. Your health care provider may recommend screening before 45 years old. You will have tests every 1 10 years, depending on your results and the type of screening test. People at increased risk should start screening at an earlier age. Talk with your health care provider about which screening test is right for you and how often you should be screened. Endometrial cancer There is no standard screening test for endometrial cancer, and females at average risk do not routinely need to have this screening. Talk with your health care provider about whether screening is right for you. If it is, this screening is performed through: Endometrial tissue biopsy. This tests a sample of tissue taken from the lining of the uterus. Vaginal ultrasound. If you are at increased risk for endometrial cancer, you may need to have these tests more often than normal. You are at increased risk if: You have a family history of ovarian, uterine, or certain types of colon cancer. You are taking tamoxifen, a medicine used to treat breast cancer. If you have reached menopause, it is especially important to talk with your health care provider about any vaginal bleeding or spotting. Screening for endometrial cancer is not recommended for females who do not have symptoms of the cancer, such as vaginal bleeding. Lung cancer Lung cancer screening is done with a CT scan that looks for abnormal changes in the lungs. Discuss lung cancer screening with your health care provider if you are 50 80 years old and if any of the following apply to you: You currently smoke. You used to smoke heavily. You have a smoking history of 1 pack of cigarettes a day for 20 years or 2 packs a day for 10 years. You may need to be screened every year if you smoke heavily or if you used to smoke. Skin cancer Skin cancer screening is done by checking the skin for unusual moles or spots and any changes in existing moles. Your health care provider should check your skin for signs of skin cancer at every physical exam. You should check your skin every month and tell your health care provider right away if anything looks unusual. Females with a [id number] risk for skin cancer may want to see a nursing education specialist (machinist linotype) for an annual body check. Where to find more information [employer]: cancer.org Centers for Disease Control and Prevention: cdc.gov National Cancer [place]: cancer.gov U.S. Department of Health and Human Services: womenshealth.gov Contact a health care provider if: You have concerns about any signs or symptoms of cancer. These may include: ?Skin problems. You may have: ?Moles of an unusual shape or color. ?Changes in existing moles. ?A sore on your skin that does not heal. ?Tiredness (fatigue) that does not go away. ?Losing weight without trying. ?Blood in your urine or stool. ?Problems with coughing or breathing. These may include: ?Coughing or trouble breathing that does not go away. ?Coughing up blood. ?Lumps or other changes in your breasts. ?Vaginal bleeding, spotting, or changes in your period. ?Frequent pain or cramping in your abdomen. This information is not intended to replace advice given to you by your health care provider. Make sure you discuss any questions you have with your health care provider. Document Revised: 05/21/2023 Document Reviewed: 12/03/2022 [employer] Patient Education 2023 [employer]. Follow Up Care 10/13/2024 11:41:48 With:JESSICA MORENO, Doug Manuel, URL Address: [facility] [address] , [place] [address]- [phone] When: only if needed [facility] Nazario 11-18-2024 Note Patient Education Oncology Cancer Screening: Female A cancer screening is a test or exam that checks for cancer. Work with your health care provider to create a cancer screening schedule that protects your health. Who should have screening? All females should be considered for screening of certain cancers, including breast cancer, cervical cancer, colorectal cancer, endometrial cancer, lung cancer, and skin cancer. Your health care provider may recommend screenings for other types of cancer if: ??? You have had cancer before. ??? You have a family member with cancer. ??? You have genes that could increase the risk of cancer. ??? You have risk factors for certain cancers, such as current or past use of tobacco products or being overweight. What are the benefits of screening? Cancer screening is done to look for cancer in the very early stages, before it spreads and becomes harder to treat and before you would start to notice symptoms. Finding cancer early improves the chances of successful treatment. It may save your life. When should I be screened for cancer? When you should be screened for cancer depends on: ??? Your age. ??? Your medical history and your family's medical history. ??? Certain lifestyle factors, such as smoking or other use of tobacco products. ??? Environmental exposure, such as to asbestos. How is screening done? Breast cancer Breast cancer screening is done with a test that takes images of breast tissue (mammogram) using an X-ray machine. Here are some screening guidelines for females at average risk: ??? When you are 40?44 years old, you should be given the choice to start having mammograms. ??? When you are 45?54 years old, you should have a mammogram every year. ??? You may start having mammograms before you are 45 years old if you have risk factors for breast cancer, such as having an immediate family member with breast cancer. ??? At 55 years old or older, you should have a mammogram every 1?2 years for as long as you are in good health and have a life expectancy of 10 years or longer. ??? It is important to know what your breasts look and feel like so you can report any changes to your health care provider. Cervical cancer Cervical cancer screening is done with an HPV (human papillomavirus) test to identify the virus that causes cervical cancer. To perform the test, a health care provider takes a swab of cells from the lowest part of the uterus (cervix) during a pelvic exam. This test may be performed along with a Pap test. This testchecks for abnormalities in the cervix. ??? All females at average risk should consider being screened for cervical cancer starting no later than 25 years old and continuing until 65 years old. Screening should not begin earlier than 21 years old. You will have tests every 3?5 years, depending on your results and the type of screening test. Talk with your health care provider about which screening test is right for you and how often you should be screened. ? If you have had the HPV vaccine, you will still be screened for cervical cancer and follow normal screening recommendations. You do not need to be screened for cervical cancer if any of the following apply to you: ??? You are older than 65 years old and you have had normal screening tests in the past 10 years with no serious cervical precancer or cancer in the last 25 years. ??? Your cervix and uterus have been removed, and you have never had cervical cancer or abnormal cells that could become cancer (precancerous cells). Colorectal cancer Colorectal cancer screening looks for cancer or for growths called polyps that often form before cancer starts. Tests to look for cancer or polyps include: ??? Colonoscopy or flexible sigmoidoscopy. For these procedures, a flexible tube with a small camera is inserted into the rectum. ??? CT colonography. This test uses X-rays and contrast dye to check the colon for polyps. Tests to look for cancer in the stool (feces) include: ??? Guaiac-based fecal occult blood test (FOBT). This test can find blood in stool. It can be done at home with a kit. ??? Fecal immunochemical test (FIT). This test can find blood in stool. For this test, you will need to collect stool samples at home. ??? Stool DNA test. This test looks for blood in stool and any changes in DNA that can lead to colon cancer. For this test, you will need to collect a stool sample at home and send it to a lab. All adults should have screenings starting at 45 years old and continuing through 75 years old. For females 76?85 years old, the decision to be screened should be based on a person's preferences, life expectancy, overall health, and prior screening history. Your health care provider may recommend screening before 45 years old. You will have tests every 1?10 years, depending on your results and the type of screening test. People at increased risk should start screening at an earlier a (more content not included)... 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 She confirmed her PT 05/22 @ 10:00. 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 She confirmed her PT 05/22 @ 10:00. documented in this encounter [facility] 05-05-2024 History of Presen t illness Narrative Physical Therapy Treatment Visit / UPOC Patient Name: Yokasta Zheng Today's Date: 05/05/2024 Encounter Diagnoses Name Primary? Tear of right rotator cuff, unspecified tear extent, unspecified whether traumatic Yes Visit number: 33 Timed Code Treatment: 30 minutes Total Treatment Time: 30 minutes Time In: 0900 Time Out: 0953 History: Pt underwent surgery for right RCR on 12/18/23. States she had one or 2 visits initially after surgery but was then to hold off. Pt was recently seen by and sling was discharged; pt now to begin PT. Pt is right hand dominant. Precautions: 6 weeks post op right RCR Subjective: Pt states she has been back to work a few times and having a lot of pain following. As day progresses, she feels pain in burning in right shoulder. 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 Ortho wants to continue therapy, focus on shoulder ER and IR ROM Pain: Denies Objective: PT Evaluation (02/04/2024) Right SHOULDER AROM: 65 degrees flexion, 60 degrees abduction, 13 degrees ER, IR to right buttock PROM: 115 degrees flexion, 74 degrees abduction, 11 degrees ER Strength: not tested due to time since surgery Special Test: not tested Treatment: Manual Therapy: (15 minutes) MFD/ SMT to UT and upper arm with moderate sensitivity noted. Therapeutic Exercise: (15 minutes) Guided pt through ther and flex ex per grid. Limited progression of ex. Therapeutic Activity: (0 minutes)Exercises to improve dynamic activities, functional tasks, functional mobility to return to prior activity level as needed. Neuromuscular re-education: ( PRN) Balance Training, Muscle Facilitation, Dynamic Stability, Core Stabilization, and Blood Flow Restriction Training (BFRT) as needed. Modalities: (PRN minutes) Assessment: Pt has completed 33 PT sessions following right RCR. Pt voicing frustration with continued pain with use of right UE while at work. Frustration complicated by issues currently going on in personal life. Limited progressions this date to accommodate pt complaints of pain. Strength with MMT to left shoulder: 4 to 4+/5 flexion and ER, 4/5 abduction. AROM flex 130, abd 123. Pt will benefit from further PT. Outcome Measure: Upper Extremity Functional Index (UEFI): 47/80 Rehab Diagnosis: right shoulder weakness; limited strength and ROM right UE, inability to return to work Short Term Goal: To be met in 2 weeks Goal 1: Pt to be instructed in home exercise program. - met [employer] Goals: To be met in 10 weeks Goal 1: Pt to report independence and compliance with home program. - met Goal 2: Pt to achieve 140 degrees of right shoulder flexion to assist with overhead reaching. 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 - met Goal 4: Pt to achieve 4+ to 5/5 strength right shoulder in all planes to assist with functional tasks and lifting. - not met Goal 5: Pt to score no less than 65/80 on UEFI indicating improved QOL. - not met Pt will benefit from skilled PT for 2-3x/week from 05/05/2024 to 07/14/2024 to address the above impairments. I hereby deem this POC medically necessary. Please sign below. Date: documented in this encounter [facility] 04-17-2024 History of Presen t illness Narrative Physical Therapy Treatment Visit Patient Name: Yokasta Zheng Today's Date: 04/17/2024 Encounter Diagnoses Name Primary? Tear of right rotator cuff, unspecified tear extent, unspecified whether traumatic Yes Visit number: 25 Timed Code Treatment: 54 minutes Total Treatment Time: 54 minutes Time In: 0930 Time Out: 1032 History: Pt underwent surgery for right RCR on 12/18/23. States she had one or 2 visits initially after surgery but was then to hold off. Pt was recently seen by and sling was discharged; pt now to begin PT. Pt is right hand dominant. Precautions: 6 weeks post op right RCR Subjective: Pt states she was out in the cold for a game last night, both shoulders are achy today. Going back to work two days/week, Hair every 30 minutes, 5 hrs. Ortho wants to continue therapy, focus on shoulder ER and IR ROM Pain: Denies Objective: PT Evaluation (02/04/2024) Right SHOULDER AROM: 65 degrees flexion, 60 degrees abduction, 13 degrees ER, IR to right buttock PROM: 115 degrees flexion, 74 degrees abduction, 11 degrees ER Strength: not tested due to time since surgery Special Test: not tested Treatment: Manual Therapy: () MFD/ SMT to UT and ant shoulder. PROM in cardinal planes with noted improvement in shoulder ER Therapeutic Exercise: (40 minutes) Guided pt through ther and flex ex per grid. Progressions made to increase functional strength of right shoulder. Therapeutic Activity: (14 minutes)Exercises to improve dynamic activities, functional tasks, functional mobility to return to prior activity level as needed. Neuromuscular re-education: ( PRN) Balance Training, Muscle Facilitation, Dynamic Stability, Core Stabilization, and Blood Flow Restriction Training (BFRT) as needed. Modalities: (PRN minutes) Assessment: Pt has completed 25 PT sessions following right RCR. Progressions made this date to increase functional strength of right shoulder. Strength with MMT: 4 to 4+/5 flexion and ER, 4/5 abduction. Will continue to progress as pt tolerates. RTW Apr 30. Outcome Measure: Upper Extremity Functional Index (UEFI): 47/80 Rehab Diagnosis: right shoulder weakness; limited strength and ROM right UE, inability to return to work Short Term Goal: To be met in 2 weeks Goal 1: Pt to be instructed in home exercise program. [employer] Goals: To be met in 10 weeks Goal 1: Pt to report independence and compliance with home program. Goal 2: Pt to achieve 140 degrees of right shoulder flexion to assist with overhead reaching. Goal 3: Pt to achieve 120 degrees of right shoulder abduction to assist with grooming hair. Goal 4: Pt to achieve 4+ to 5/5 strength right shoulder in all planes to assist with functional tasks and lifting. Goal 5: Pt to score no less than 65/80 on UEFI indicating improved QOL. Pt will benefit from skilled PT for 2-3x/week from 02/04/2024 to 04/14/2024 to address the above impairments. I hereby deem this POC medically necessary. Please sign below. Date: documented in this encounter [facility] 04-14-2024 Evaluation note Diagnosis Onset Date Resolution Impingement syndrome of right shoulder acute April 14, 024 11:21am Right rotator cuff tear acute N ovember 2023 11:21am Right shoulder pain acute Novem minerva 2023 11:21am Other specified postprocedural states noneactive March 272023 11:21am Impingement syndrome of right shoulder acute June 29 10:15am Right rotator cuff tear acute F ebruary 2024 10:15am Right shoulder pain acute Febru ra2024 10:15am Other specified postprocedural states noneactive June 292024 10:15am [facility] Work Phone: [phone]) 787-938211-15-2024 History of Present illness Narrative* Hallye Thao, PT - 04/10/2024 9:00 AM EST Physical Therapy Treatment Visit Patient Name: Yokasta Zheng Today's Date: 04/10/2024 Encounter Diagnoses Name Primary? Tear of right rotator cuff, unspecified tear extent, unspecified whether traumatic Yes Visit number: 23 Timed Code Treatment: 30 minutes Total Treatment Time: 30 minutes Time In: 0900 Time Out: 0953 History: Pt underwent surgery for right RCR on 12/18/23. States she had one or 2 visits initially after surgery but was then to hold off. Pt was recently seen by and jason was discharged; pt now tobegin PT. Pt is right hand dominant. Precautions: 6 weeks post op right RCR Subjective: Plan is still to return to work beginning of April. Anxious that she will not be able to tolerate holding her arm up for extended periods of time. Pain: Denies Objective: PT Evaluation (02/04/2024) Right SHOULDER AROM: 65 degrees flexion, 60 degrees abduction, 13 degrees ER, IR to right buttock PROM: 115 degrees flexion, 74 degrees abduction, 11 degrees ER Strength: not tested due to time since surgery Special Test: not tested Treatment: Manual Therapy: () MFD/ SMT to UT and ant shoulder. PROM in cardinal planes with noted improvement in shoulder ER Therapeutic Exercise: (30 minutes supervised) Guided pt through ther and flex ex per grid. Progressions made to increase functional strength of right shoulder. Additional unsupervised. Therapeutic Activity: ()Exercises to improve dynamic activities, functional tasks, functional mobility to return to prior activity level as needed. Neuromuscular re-education: ( PRN) Balance Training, Muscle Facilitation, Dynamic Stability, Core Stabilization, and Blood Flow Restriction Training (BFRT) as needed. Modalities: (PRN minutes) Assessment: Pt has completed 23 PT sessions following right RCR. Pt continues with mild tenderness right ant shoulder and pec region. Will continue to progress strength as tolerated to prepare for return to work. RTD 04/14/24 Outcome Measure: Upper Extremity Functional Index (UEFI): 47/80 Rehab Diagnosis: right shoulder weakness; limited strength and ROM right UE, inability to return towork Short Term Goal: To be met in 2 weeks Goal 1: Pt to be instructed in home exercise program. [employer] Goals: To be met in 10 weeks Goal 1: Pt to report independence and compliance with home program. Goal 2: Pt to achieve 140 degrees of right shoulder flexion to assist with overhead reaching. Goal 3: Pt to achieve 120 degrees of right shoulder abduction to assist with grooming hair. Goal 4: Pt to achieve 4+ to 5/5 strength right shoulder in all planes to assist with functional tasks and lifting. Goal 5: Pt to score no less than 65/80 on UEFI indicating improved QOL. Pt will benefit from skilled PT for 2-3x/week from 02/04/2024 to 04/14/2024 to address the above impairments. I hereby deem this POC medically necessary. Please sign below. Date: documented in [facility] encounter[facility] [id number] History of Present illness Narrative* Tonya Bass, RAO - 04/08/2024 10:00 AM EST Physical Therapy Treatment Visit Patient Name: Yokasta Zheng Today's Date: 04/08/2024 Encounter Diagnoses Name Primary? Tear of right rotator cuff, unspecified tear extent, unspecified whether traumatic Yes Visit number: 22 Timed Code Treatment: 53 minutes Total Treatment Time: 53 minutes Time In: 1000 Time Out: 1053 History: Pt underwent surgery for right RCR on 12/18/23. States she had one or 2 visits initially after surgery but was then to hold off. Pt was recently seen by and sling was discharged; pt now tobegin PT. Pt is right hand dominant. Precautions: 6 weeks post op right RCR Subjective: Reports shoulder continues to show improvement. Did a hair cut without issues. Pt kept client seat low. Pt plans on returning to work after Thanksgiving. Pain: Denies Objective: PT Evaluation (02/04/2024) Right SHOULDER AROM: 65 degrees flexion, 60 degrees abduction, 13 degrees ER, IR to right buttock PROM: 115 degrees flexion, 74 degrees abduction, 11 degrees ER Strength: not tested due to time since surgery Special Test: not tested Treatment: Manual Therapy: (15 minutes) MFD/ SMT to UT and ant shoulder. PROM in cardinal planes with noted improvement in shoulder ER Therapeutic Exercise: (38 minutes supervised) Guided pt through ther and flex ex per grid to improve right UE shoulder progressed strengthening exercises this date with fatigue and weakness noted. UBE () set to hills level 3 for muscle endurance Therapeutic Activity: ()Exercises to improve dynamic activities, functional tasks, functional mobility to return to prior activity level as needed. Neuromuscular re-education: ( PRN) Balance Training, Muscle Facilitation, Dynamic Stability, Core Stabilization, and Blood Flow Restriction Training (BFRT) as needed. Modalities: (PRN minutes) Assessment: Pt has completed 22 PT sessions following right RCR. Held some exercises this date to focus on manual therapy. Push ups on side of bed this date with good caesar. Focused on shoulder ER and flex and abduction strength. Will continue to progress as pt tolerates. Pt is making slow but steady progress towards LTGs. She continues to improve AROM and tolerance to activities of daily living. RTD 04/14/24 Outcome Measure: Upper Extremity Functional Index (UEFI): 47/80 Rehab Diagnosis: right shoulder weakness; limited strength and ROM right UE, inability to return towork Short Term Goal: To be met in 2 weeks Goal 1: Pt to be instructed in home exercise program. [employer] Goals: To be met in 10 weeks Goal 1: Pt to report independence and compliance with home program. Goal 2: Pt to achieve 140 degrees of right shoulder flexion to assist with overhead reaching. Goal 3: Pt to achieve 120 degrees of right shoulder abduction to assist with grooming hair. Goal 4: Pt to achieve 4+ to 5/5 strength right shoulder in all planes to assist with functional tasks and lifting. Goal 5: Pt to score no less than 65/80 on UEFI indicating improved QOL. Pt will benefit from skilled PT for 2-3x/week from 02/04/2024 to 04/14/2024 to address the above impairments. I hereby deem this POC medically necessary. Please sign below. Date: Cosigned by Halley Thao PT at 04/10/2024 1:10 PM EST documented in this encounterC[facility] H[id number] History of Present illness Narrative* Tonya Bass PTA - 04/06/2024 10:00 AM EST Physical Therapy Treatment Visit Patient Name: Yokasta Zheng Today's Date: 04/06/2024 Encounter Diagnoses Name Primary? Tear of right rotator cuff, unspecified tear extent, unspecified whether traumatic Yes Visit number: 21 Timed Code Treatment: 53 minutes Total Treatment Time: 53 minutes Time In: 1000 Time Out: 1053 History: Pt underwent surgery for right RCR on 12/18/23. States she had one or 2 visits initially after surgery but was then to hold off. Pt was recently seen by and sling was discharged; pt now tobegin PT. Pt is right hand dominant. Precautions: 6 weeks post op right RCR Subjective: Reports shoulder continues to show improvement. Did a hair cut without issues. Pt kept client seat low. Pt plans on returning to work after Thanksgiving. Pain: Denies Objective: PT Evaluation (02/04/2024) Right SHOULDER AROM: 65 degrees flexion, 60 degrees abduction, 13 degrees ER, IR to right buttock PROM: 115 degrees flexion, 74 degrees abduction, 11 degrees ER Strength: not tested due to time since surgery Special Test: not tested Treatment: Manual Therapy: (15 minutes) MFD/ SMT to lateral pec and ant shoulder. PROM in cardinal planes withnoted improvement in shoulder flex and abd. Therapeutic Exercise: (38 minutes supervised) Guided pt through ther and flex ex per grid to improve right UE shoulder progressed strengthening exercises this date with fatigue and weakness noted. UBE () set to hills level 3 for muscle endurance Therapeutic Activity: ()Exercises to improve dynamic activities, functional tasks, functional mobility to return to prior activity level as needed. Neuromuscular re-education: ( PRN) Balance Training, Muscle Facilitation, Dynamic Stability, Core Stabilization, and Blood Flow Restriction Training (BFRT) as needed. Modalities: (PRN minutes) Assessment: Pt has completed 21 PT sessions following right RCR. Held some exercises this date to focus on manual therapy. Push ups on side of bed this date with good caesar. Focused on shoulder ER and flex and abduction strength. Will continue to progress as pt tolerates. Pt is making slow but steady progress towards LTGs. She continues to improve AROM and tolerance to activities of daily living. RTD 04/14/24 Outcome Measure: Upper Extremity Functional Index (UEFI): 47/80 Rehab Diagnosis: right shoulder weakness; limited strength and ROM right UE, inability to return towork Short Term Goal: To be met in 2 weeks Goal 1: Pt to be instructed in home exercise program. [employer] Goals: To be met in 10 weeks Goal 1: Pt to report independence and compliance with home program. Goal 2: Pt to achieve 140 degrees of right shoulder flexion to assist with overhead reaching. Goal 3: Pt to achieve 120 degrees of right shoulder abduction to assist with grooming hair. Goal 4: Pt to achieve 4+ to 5/5 strength right shoulder in all planes to assist with functional tasks and lifting. Goal 5: Pt to score no less than 65/80 on UEFI indicating improved QOL. Pt will benefit from skilled PT for 2-3x/week from 02/04/2024 to 04/14/2024 to address the above impairments. I hereby deem this POC medically necessary. Please sign below. Date: Cosigned by Halley Thao PT at 04/10/2024 1:08 PM EST documented in this encounterCedar County [facility] HospitalKoiiocghby68-08-7479 History of Present illness Narrative* Halley Thao, PT - 03/27/2024 9:30 AM EDT Physical Therapy Treatment Visit Patient Name: Yokasta Zheng Today's Date: 03/27/2024 Encounter Diagnoses Name Primary? Tear of right rotator cuff, unspecified tear extent, unspecified whether traumatic Yes Visit number: 18 Timed Code Treatment: 55 minutes Total Treatment Time: 55 minutes Time In: 09:35 AM Time Out: 10:30 AM History: Pt underwent surgery for right RCR on 12/18/23. States she had one or 2 visits initially after surgery but was then to hold off. Pt was recently seen by and sling was discharged; pt now tobegin PT. Pt is right hand dominant. Precautions: 6 weeks post op right RCR Subjective: Reports mild muscle soreness post session, icing at the end of the day Pain: Denies Objective: PT Evaluation (02/04/2024) Right SHOULDER AROM: 65 degrees flexion, 60 degrees abduction, 13 degrees ER, IR to right buttock PROM: 115 degrees flexion, 74 degrees abduction, 11 degrees ER Strength: not tested due to time since surgery Special Test: not tested Treatment: Manual Therapy: (14 minutes) MFD with one cup sliding to right ant shoulder and pec region; static placement following. SMT to lateral pec and ant shoulder. Therapeutic Exercise: (41 minutes supervised) Guided pt through ther and flex ex per grid to improve right UE shoulder progressed strengthening exercises this date with fatigue and weakness noted. UBE () set to hills level 3 for muscle endurance Therapeutic Activity: ()Exercises to improve dynamic activities, functional tasks, functional mobility to return to prior activity level as needed. Neuromuscular re-education: ( PRN) Balance Training, Muscle Facilitation, Dynamic Stability, Core Stabilization, and Blood Flow Restriction Training (BFRT) as needed. Modalities: (PRN minutes) Assessment: Pt has completed 18 PT sessions following right RCR. Held some exercises this date to focus on manual therapy. Added push ups on side of bed this date with good caesar. Strength right shoulder ER 4/5, strength right shoulder IR 4 to 4+/5. Will continue to progress as pt tolerates. RTD 04/14/24 Outcome Measure: Upper Extremity Functional Index (UEFI): 47/80 Rehab Diagnosis: right shoulder weakness; limited strength and ROM right UE, inability to return towork Short Term Goal: To be met in 2 weeks Goal 1: Pt to be instructed in home exercise program. Prison Goals: To be met in 10 weeks Goal 1: Pt to report independence and compliance with home program. Goal 2: Pt to achieve 140 degrees of right shoulder flexion to assist with overhead reaching. Goal 3: Pt to achieve 120 degrees of right shoulder abduction to assist with grooming hair. Goal 4: Pt to achieve 4+ to 5/5 strength right shoulder in all planes to assist with functional tasks and lifting. Goal 5: Pt to score no less than 65/80 on UEFI indicating improved QOL. Pt will benefit from skilled PT for 2-3x/week from 02/04/2024 to 04/14/2024 to address the above impairments. I hereby deem this POC medically necessary. Please sign below. Date: documented in this encounterCedar County [facility] [id number] History of Present illness Narrative* Halley Thao, PT - 03/11/2024 10:30 AM EDT Physical Therapy Treatment Visit Patient Name: Yokasta Zheng Today's Date: 03/11/2024 Encounter Diagnoses Name Primary? Tear of right rotator cuff, unspecified tear extent, unspecified whether traumatic Yes Visit number: 13 Timed Code Treatment Minutes: 30 minutes Total Treatment Time: 30 minutes Time In: 1030 Time Out: 1104 History: Pt underwent surgery for right RCR on 12/18/23. States she had one or 2 visits initially after surgery but was then to hold off. Pt was recently seen by and jason was discharged; pt now tobegin PT. Pt is right hand dominant. Precautions: 6 weeks post op right RCR Subjective: Pt states she was seen by . said she is probably where she should be for having therapy last 5-6 weeks. Pt also states did not recall telling her to hold PT and assumed her ROM would be better. RTD 04/14/24. Pain: No current pain. Anterior shoulder pain. Objective: PT Evaluation (02/04/2024) Right SHOULDER AROM: 65 degrees flexion, 60 degrees abduction, 13 degrees ER, IR to right buttock PROM: 115 degrees flexion, 74 degrees abduction, 11 degrees ER Strength: not tested due to time since surgery Special Test: not tested Treatment: Education: HEP education with demonstration, Educated on Eval Findings and POC Manual Therapy: () Passive ROM, Joint mobilization, Soft Tissue Mobilization, Myofascial Release, Muscle Energy Technique, Neural Mobilization, Myofascial Cupping, Dry Needling, IASTM, and Scar mobilization as needed. Therapeutic Exercise: (30 minutes) Strength, Endurance, Flexibility, ROM, HEP, Neural Mobilization,Power, and Core Stability as needed. Progressed strengthening exercises this date with fatigue and weakness noted. Therapeutic Activity: Exercises to improve dynamic activities, functional tasks, functional mobility to return to prior activity level as needed. Neuromuscular re-education: () Balance Training, Muscle Facilitation, Dynamic Stability, Core Stabilization, and Blood Flow Restriction Training (BFRT) as needed. Significant time spent working on improving scapular movement to improve shoulder biomechanics needed to reach over head. Manual assist to scapula needed to assist movement. Modalities: (PRN minutes) Heat, Ice, Electrical Stimulation, Ultrasound, Cervical Mechanical Traction, Lumbar Mechanical Traction, Iontophoresis, and Fluidotherapy as needed. Assessment: AROM: 80 abd, 90 flex PROM: Flex 160, abd 170, ER 60 Pt has completed 13 PT sessions following right RCR. Progressed strengthening this date with good caesar. Strength right shoulder flexion and abduction 4- to 4/5. Discussed importance of icing at home. Will continue to progress as pt tolerates. Outcome Measure: Upper Extremity Functional Index (UEFI): 47/80 Rehab Diagnosis: right shoulder weakness; limited strength and ROM right UE, inability to return towork Short Term Goal: To be met in 2 weeks Goal 1: Pt to be instructed in home exercise program. [employer] Goals: To be met in 10 weeks Goal 1: Pt to report independence and compliance with home program. Goal 2: Pt to achieve 140 degrees of right shoulder flexion to assist with overhead reaching. Goal 3: Pt to achieve 120 degrees of right shoulder abduction to assist with grooming hair. Goal 4: Pt to achieve 4+ to 5/5 strength right shoulder in all planes to assist with functional tasks and lifting. Goal 5: Pt to score no less than 65/80 on UEFI indicating improved QOL. Pt will benefit from skilled PT for 2-3x/week from 02/04/2024 to 04/14/2024 to address the above impairments. I hereby deem this POC medically necessary. Please sign below. Date: documented in this encounterCedar County [facility] [id number] History of Present illness Narrative* Halley Thao, PT - 02/28/2024 9:30 AM EDT Physical Therapy Treatment Visit Patient Name: Yokasta Zheng Today's Date: 02/28/2024 Encounter Diagnoses Name Primary? Tear of right rotator cuff, unspecified tear extent, unspecified whether traumatic Yes Visit number: 9 Timed Code Treatment Minutes: 40 minutes Total Treatment Time: 55 minutes Time In: 0933 Time Out: 1028 History: Pt underwent surgery for right RCR on 12/18/23. States she had one or 2 visits initially after surgery but was then to hold off. Pt was recently seen by and sling was discharged; pt now tobegin PT. Pt is right hand dominant. Precautions: 6 weeks post op right RCR Subjective: Pt states right shoulder is really only hurting when it is touched. States trying to massage right shoulder at home. States tightness goes down into upper arm as well. States still havinga hard time sleeping. RTD 1014/24. Pain: No current pain. Anterior shoulder pain. Objective: PT Evaluation (02/04/2024) Right SHOULDER AROM: 65 degrees flexion, 60 degrees abduction, 13 degrees ER, IR to right buttock PROM: 115 degrees flexion, 74 degrees abduction, 11 degrees ER Strength: not tested due to time since surgery Special Test: not tested Treatment: Education: HEP education with demonstration, Educated on Eval Findings and POC Manual Therapy: () Passive ROM, Joint mobilization, Soft Tissue Mobilization, Myofascial Release, Muscle Energy Technique, Neural Mobilization, Myofascial Cupping, Dry Needling, IASTM, and Scar mobilization as needed. Therapeutic Exercise: (40 minutes) Strength, Endurance, Flexibility, ROM, HEP, Neural Mobilization,Power, and Core Stability as needed. Worked on slow lowering from elevated positions with good caesar.Improved AROM following exercise. Therapeutic Activity: Exercises to improve dynamic activities, functional tasks, functional mobility to return to prior activity level as needed. Neuromuscular re-education: Balance Training, Muscle Facilitation, Dynamic Stability, Core Stabilization, and Blood Flow Restriction Training (BFRT) as needed. Modalities: (15 minutes) Heat, Ice, Electrical Stimulation, Ultrasound, Cervical Mechanical Traction, Lumbar Mechanical Traction, Iontophoresis, and Fluidotherapy as needed. ESU w/ CP post session for pain and inflammation control. Assessment: Pt has completed 9 PT sessions following right RCR. AROM right shoulder in standin degrees flexion, 78 degrees abduction before exercises; pt able to achieve 110 degrees active right shoulder flexion following exercise. Follow up 03/10 Outcome Measure: Upper Extremity Functional Index (UEFI): 47/80 Rehab Diagnosis: right shoulder weakness; limited strength and ROM right UE, inability to return towork Short Term Goal: To be met in 2 weeks Goal 1: Pt to be instructed in home exercise program. [employer] Goals: To be met in 10 weeks Goal 1: Pt to report independence and compliance with home program. Goal 2: Pt to achieve 140 degrees of right shoulder flexion to assist with overhead reaching. Goal 3: Pt to achieve 120 degrees of right shoulder abduction to assist with grooming hair. Goal 4: Pt to achieve 4+ to 5/5 strength right shoulder in all planes to assist with functional tasks and lifting. Goal 5: Pt to score no less than 65/80 on UEFI indicating improved QOL. Pt will benefit from skilled PT for 2-3x/week from 02/04/2024 to 04/14/2024 to address the above impairments. I hereby deem this POC medically necessary. Please sign below. Date: documented in this encounterCedar County Memorial [id number] History of Present illness Narrative* Halley Thao, PT - 02/04/2024 12:30 PM EDT Physical Therapy Evaluation Visit Patient Name: Yokasta Zheng Today's Date: 02/04/2024 Encounter Diagnoses Name Primary? Tear of right rotator cuff, unspecified tear extent, unspecified whether traumatic Yes Visit number: 1 Timed Code Treatment Minutes: 45 minutes Total Treatment Time: 45 minutes Time In: 1232 Time Out: 1317 History: Pt underwent surgery for right RCR on 12/18/23. States she had one or 2 visits initially after surgery but was then to hold off. Pt was recently seen by and raymonding was discharged; pt now tobegin PT. Pt is right hand dominant. Precautions: 6 weeks post op right RCR Subjective: right shoulder Pain: 0/10; denies any pain Objective: PT Evaluation (02/04/2024) Right SHOULDER AROM: 65 degrees flexion, 60 degrees abduction, 13 degrees ER, IR to right buttock PROM: 115 degrees flexion, 74 degrees abduction, 11 degrees ER Strength: not tested due to time since surgery Special Test: not tested Treatment: Education: HEP education with demonstration, Educated on Eval Findings and POC Manual Therapy: (10 minutes) Passive ROM, Joint mobilization, Soft Tissue Mobilization, Myofascial Release, Muscle Energy Technique, Neural Mobilization, Myofascial Cupping, Dry Needling, IASTM, and Scar mobilization as needed. Gentle PROM right shoulder in supine. Gentle mobs and oscilations to right shoulder in supine to increase mobility and decrease pain. Therapeutic Exercise: (18 minutes) Strength, Endurance, Flexibility, ROM, HEP, Neural Mobilization,Power, and Core Stability as needed. Pt instructed in and performed home program. Pt tolerates AAROM well. Will progress as able. Therapeutic Activity: Exercises to improve dynamic activities, functional tasks, functional mobility to return to prior activity level as needed. Neuromuscular re-education: Balance Training, Muscle Facilitation, Dynamic Stability, Core Stabilization, and Blood Flow Restriction Training (BFRT) as needed. Modalities: Heat, Ice, Electrical Stimulation, Ultrasound, Cervical Mechanical Traction, Lumbar Mechanical Traction, Iontophoresis, and Fluidotherapy as needed. Assessment: Pt is 48 y/o female 6 weeks post op right RCR. Pt with limited ROM and mobility of right shoulder. Strength not assessed at this time due to time since surgery. Pt will benefit from further PT to address deficits. Outcome Measure: Upper Extremity Functional Index (UEFI): 47/80 Rehab Diagnosis: right shoulder weakness; limited strength and ROM right UE, inability to return towork Short Term Goal: To be met in 2 weeks Goal 1: Pt to be instructed in home exercise program. Prison Goals: To be met in 10 weeks Goal 1: Pt to report independence and compliance with home program. Goal 2: Pt to achieve 140 degrees of right shoulder flexion to assist with overhead reaching. Goal 3: Pt to achieve 120 degrees of right shoulder abduction to assist with grooming hair. Goal 4: Pt to achieve 4+ to 5/5 strength right shoulder in all planes to assist with functional tasks and lifting. Goal 5: Pt to score no less than 65/80 on UEFI indicating improved QOL. Pt will benefit from skilled PT for 2-3x/week from 02/04/2024 to 04/14/2024 to address the above impairments. I hereby deem this POC medically necessary. Please sign below. Date: documented in this [facility]09-03-2024 Evaluation note* Diagnosis Onset Date Resolution Status Admit Date Impingement syndrome of righ t shoulder acute January 27 024 9:02am Right rotator cuff tear acute S eptember 2023 9:02am Right shoulder pain acute Septe mber 2023 9:02am Other specified postprocedural states noneactive January 28, 2024 9:02am Impingement syndrome of righ t shoulder acute March 10 9:03am Right rotator cuff tear acute O ctober 2023 9:03am Right shoulder pain acute Octob er 2023 9:03am Other specified postprocedural states noneactive March 102023 9:03am Impingement syndrome of righ t shoulder acute April 14, 2 024 11:21am Right rotator cuff tear acute N ovember 2023 11:21am Right shoulder pain acute Novem minerva 2023 11:21am Other specified postprocedural states noneactive March 272023 11:21am [facility] Work Phone: [phone]) 911-667607-24-2024 Reason for visit Narrative* Rehabilitation - Outpatient (Routine) - Authorized Specialty Diagnoses / Procedures Referred By Toni t Referred To Contact Physical Therapy Diagnoses S/P Right Shoulder arthroscopy w/ supraspinaltus rotator cuff repair; dos 12/18/23 Procedures IN PHYSICAL THERAPY EVALUATION LOW COMPLEX 20 MINS Janna Berger MD [address] [place] [address] Phone: tel: fax: Halley Thao, PT Referral ID Status Reason Start Date Expiration Date V isits Requested Visits Authorized [id number] Authorized 01/30/2024 07/28/2024 38 38 [facility] HospitalEyecznwebp45-63-2439 Reason for visit Narrative* Rehabilitation - Outpatient (Routine) - Authorized Specialty Diagnoses / Procedures Referred By Toni pearson Referred To Contact Physical Therapy Diagnoses S/P Right Shoulder arthroscopy w/ supraspinaltus rotator cuff repair; dos 12/18/23 Procedures IN PHYSICAL THERAPY EVALUATION LOW COMPLEX 20 MINS Janna Berger MD [address] [place] [address] Phone: tel: fax: Halley Thao, PT Referral ID Status Reason Start Date Expiration Date V isits Requested Visits Authorized [id number] Authorized 01/30/2024 05/26/2024 38 38 [facility] [id number] Hospital Discharge instructions Patient Education 10/29/2023 09:29:39 EU - Cystoscopy Discharge Instructions (CUSTOM) Cystoscopy Voiding after the procedure: there may be some pain, burning, urgency, frequency and blood tinged urine following the procedure. These symptoms usually resolve within 2-5 days. Drink the amount of fluid it takes to keep the urine pink to yellow or clear in color. Drinking enough water and fluids will help to ease any discomfort after your procedure. If you are having problems that seem out of the ordinary, please call. If unable to contact your physician and you feel it is an emergency, go to the nearest emergency room or call 911 Diet you may resume your normal diet. Activity you may resume your normal activities Call if you have a fever over 100 degrees. Follow Up Care 09/12/2023 14:32:51 With:Doug JESSICA Address: [address] [place] [phone] Business (1) When: Unknown Comments:Call for any problems. [facility]12-14-2023 Evaluation note* Encounter Date Diagnosis Assessment Notes Treatment Notes Treatment Clinical Notes Apr, Acute pain of right shoulder (ICD-10 - M25.511) Apr, Subacromial impingement of right shoulder (ICD-10 - M75.41) This appears to be pain secondary to subacromial bursitis / rotator cuff tendonitis. We discussed and demonstrated gentle motion exercise and rotator cuff strengthening exercise. Discussed the use of non-steroidal anti-inflammatory medication. Formal therapy order provided. A marcaine / kenalog cortisone injection was performed into the subacromial space under sterile technique. Patient tolerated the injection well with no adverse reaction. Sent in oral NSAID with instructions on use. Examination and assessment of this patient was performed by Heavenly Pitt NP and patient will continue with the treatment plan per Dr. Berger, who initiated this treatment plan. Dr. Berger is present in the office today and providing supervision. [facility] Other 07-20-2023 History general Narrative - Reported* Type Description Date Medical History Vascular disorder- u nknown but treated by vascular currently Medical History chronic otitis media of right side 12/13- ENT [facility] resolving Medical History varicose veins BLE Medical History Post-operative state Surgical History appendectomy 1989 Surgical History danette in upper left arm 2003 Surgical History varicose vein stripping-left le g 2020 Surgical History uterine ablation September 2020 Surgical History hysterectomy September 2022 Surgical History bladder tumor removed September 2022 Hospitalization History see above [facility] Other 06-20-2023 Hospital Discharge instructions Patient Education 11/13/2022 09:54:33 EU - Cystoscopy with Stent Removal Discharge Instructions (CUSTOM) Cystoscopy with Stent Removal Voiding after the procedure: there may be some pain, burning, urgency, frequency and blood tinged urine following the procedure. These symptoms usually resolve within 2-5 days. Drink the amount of fluid it takes to keep the urine pink to yellow or clear in color. Drinking enough water and fluids will help to ease any discomfort after your procedure. If you are having problems that seem out of the ordinary, please call. If unable to contact your physician and you feel it is an emergency, go to the nearest emergency room or call 911 Diet you may resume your normal diet. Activity you may resume your normal activities Call if you have a fever over 100 degrees. Follow Up Care 10/26/2022 12:05:16 With:Doug MCDANIEL Address: [facility] [address] [place] [address] Business (1) When: Unknown Comments:Office will call to schedule follow up [facility]06-02-2023 Hospital Discharge instructions Patient Education 10/26/2022 11:36:45 Cystoscopy Cystoscopy Cystoscopy is a procedure that is used to help diagnose and sometimes treat conditions that affect the lower urinary tract. The lower urinary tract includes the bladder and the urethra. The urethra is the tube that drains urine from the bladder. Cystoscopy is done using a thin, tube-shaped instrument with a light and camera at the end (cystoscope). The cystoscope may be hard or flexible, depending on the goal of the procedure. The cystoscope is inserted through the urethra, into the bladder. Cystoscopy may be recommended if you have: Urinary tract infections that keep coming back. Blood in the urine (hematuria). An inability to control when you urinate (urinary incontinence) or an overactive bladder. Unusual cells found in a urine sample. A blockage in the urethra, such as a urinary stone. Painful urination. An abnormality in the bladder found during an intravenous pyelogram (IVP) or CT scan. Cystoscopy may also be done to remove a sample of tissue to be examined under a microscope (biopsy). Tell a health care provider about: Any allergies you have. All medicines you are taking, including vitamins, herbs, eye drops, creams, and mdui-yyl-ryjdtib medicines. Any problems you or family members have had with anesthetic medicines. Any blood disorders you have. Any surgeries you have had. Any medical conditions you have. Whether you are or may be . What are the risks? Generally, this is a safe procedure. However, problems may occur, including: Infection. Bleeding. Allergic reactions to medicines. Damage to other structures or organs. What happens before the procedure? Medicines Ask your health care provider about: Changing or stopping your regular medicines. This is especially important if you are taking diabetes medicines or blood thinners. Taking medicines such as aspirin and ibuprofen. These medicines can thin your blood. Do not take these medicines unless your health care provider tells you to take them. Taking misg-khh-knoaoou medicines, vitamins, herbs, and supplements. Tests You may have an exam or testing, such as: X-rays of the bladder, urethra, or kidneys. CT scan of the abdomen or pelvis. Urine tests to check for signs of infection. General instructions Follow instructions from your health care provider about eating or drinking restrictions. Ask your health care provider what steps will be taken to help prevent infection. These steps may include: ?Washing skin with a germ-killing soap. ?Taking antibiotic medicine. Plan to have a responsible adult take you home from the hospital or clinic. What happens during the procedure? You will be given one or more of the following: ?A medicine to help you relax (sedative). ?A medicine to numb the area (local anesthetic). The area around the opening of your urethra will be cleaned. The cystoscope will be passed through your urethra into your bladder. Germ-free (sterile) fluid will flow through the cystoscope to fill your bladder. The fluid will stretch your bladder so that your health care provider can clearly examine your bladder estes. Your doctor will look at the urethra and bladder. Your doctor may take a biopsy or remove stones. The cystoscope will be removed, and your bladder will be emptied. The procedure may vary among health care providers and hospitals. What can I expect after the procedure? After the procedure, it is common to have: Some soreness or pain in your abdomen and urethra. Urinary symptoms. These include: ?Mild pain or burning when you urinate. Pain should stop within a few minutes after you urinate. This may last for up to 1 week. ?A small amount of blood in your urine for several days. ?Feeling like you need to urinate but producing only a small amount of urine. Follow these instructions at home: Medicines Take xbqx-osd-geyhlsr and prescription medicines only as told by your health care provider. If you were prescribed an antibiotic medicine, take it as told by your health care provider. Do notstop taking the antibiotic even if you start to feel better. General instructions Return to your normal activities as told by your health care provider. Ask your health care provider what activities are safe for you. If you were given a sedative during the procedure, it can affect you for several hours. Do not drive or operate machinery until your health care provider says that it is safe. Watch for any blood in your urine. If the amount of blood in your urine increases, call your healthcare provider. Follow instructions from your health care provider about eating or drinking restrictions. If a tissue sample was removed for testing (biopsy) during your procedure, it is up to you to get your test results. Ask your health care provider, or the department that is doing the test, when yourresults will be ready. Drink enough fluid to keep your urine pale yellow. Keep all follow-up visits. This is important. Contact a health care provider if: You have pain that gets worse or does not get better with medicine, especially pain when you urinate. You have trouble urinating. You have more blood in your urine. Get help right away if: You have blood clots in your urine. You have abdominal pain. You have a fever or chills. You are unable to urinate. Summary Cystoscopy is a procedure that is used to help diagnose and sometimes treat conditions that affect the lower urinary tract. Cystoscopy is done using a thin, tube-shaped instrument with a light and camera at the end. After the procedure, it is common to have some soreness or pain in your abdomen and urethra. Watch for any blood in your urine. If the amount of blood in your urine increases, call your healthcare provider. If you were prescribed an antibiotic medicine, take it as told by your health care provider. Do notstop taking the antibiotic even if you start to feel better. This information is not intended to replace advice given to you by your health care provider. Make sure you discuss any questions you have with your health care provider. Document Revised: 01/24/2022 Document Reviewed: 12/23/2020 [employer] Patient Education 2022 [employer]. Follow Up Care 10/10/2022 13:17:12 With:JESSICA MORENO, Doug Manuel, URL Address: [facility] [address], [place] [address]- When: Unknown [facility] NoteOPERATIVE NOTE OPERATION DATE: 09/27/2022 PROCEDURE: Robotic assisted laparoscopic hysterectomy. PREOPERATIVE DIAGNOSIS: Menorrhagia, dysmenorrhea, pelvic pain, failed ablation. POSTOPERATIVE DIAGNOSIS: Menorrhagia, dysmenorrhea, pelvic pain, failed ablation, bladder tumor noted next to the patient's right ureteral opening. ANESTHESIA: General. SURGEON: Fareed Rodriges D.O. METER RECORD CLERK: LANEY Gonzalez URINE OUTPUT: Yellow and clear. BLOOD LOSS: 150 mL. FINDINGS: Enlarged uterus, evidence of tubal ligation, normal appearing ovaries. On cystoscopy, bladder tumor noted next to the right ureteral orifice. PROCEDURE: The patient was taken back to the operating room, where she was prepped and draped in the normal sterile fashion after being placed in the dorsal lithotomy position. Patient's anesthesia was found to be adequate. Surgical timeout was performed using two patient identifiers. SCDs were on and in place. Two grams of Ancef were given prior to the surgery. Sterile Clemens catheter was inserted. Standard size VCare was secured to the uterine cervix and the surgeon changed gloves. Attention then was turned to the patient's abdomen, where a supraumbilical incision was then made. Two S retractors were used to identify the patient's fascia. The fascia was then tented up using Modesta clamps and the patient's fascia was incised sharply. Patient's abdomen was identified and entered bluntly. The patient had the trocar placed and a pneumoperitoneum was obtained. Approximately 4 liters of CO2 gas was used. The camera was then placed through the trocar. At this time, two robot trocars were placed in the patient's left and right side, two hand widths from the midline, and this was placed under direct visualization. The patient's tube on the right side was tended up and the vessel sealer was then used to come across the mesosalpinx, and this was carried down to the uterine ovarian ligament. The vessel sealer was carried down serially to the broad ligament, to the area of the bladder flap, which was then created anteriorly, and the uterine arteries were skeletonized and sealed using the vessel sealer. The colpotomy was made using the monopolar cautery on cut, and this was carried circumferentially, posteriorly to anteriorly, until the uterus was amputated. The specimen was then removed intact through the vagina, without difficulty. The vagina was then closed using two running V-Loc in a non-lock fashion. The robot was undocked. The abdomen was desufflated. The skin defects were closed using 4-0 Vicryl. Please note, the fascia was closed using 0 Vicryl. Sponge, lap and needle counts were correct x2. Patient was taken to recovery room in stable condition. The patient was awakened by Anesthesia first. [facility]* Encounter Date Diagnosis Assessment Notes Treatment Notes Treatment Clinical Notes Jul, Acute pain of left shoulder (ICD-10 - M25.512) Jul, Left shoulder tendinitis (ICD-10 - M77.8) Extensive discussion about current condition and treatment options available. This appears to be pain secondary to subacromial bursitis / rotator cuff tendonitis. We discussed and demonstrated gentle motion exercise and rotator cuff strengthening exercise. Discussed the use of non-steroidal anti-inflammatory medication. We will provide an order for formal physical therapy. A 2/1cc marcaine / kenalog cortisone injection was performed into the subacromial space under sterile technique. Patient tolerated the injection well with no adverse reaction. [facility] Other 04-21-2022 Evaluation note* Encounter Date Diagnosis Assessment Notes Treatment Notes Treatment Clinical Notes Aug, Seasonal allergies (ICD-10 - J30.2) Did discuss seasonal allergies and trialing other antihistamines as her body can get used to a specific medication after extended periods of time. She did switch from her initial antihistamine and would like to switch back. I do encourage this for maintenance. Flonase is always encouraged daily if needed, or in times of exacerbation. Nothing further needed for me at this time. Aug, Anxiety (ICD-10 - F41.9) Will monitor closely. Declines initiation of medication. States she is doing much better in regards to anxiety and the grief secondary to loss of her mother recently. She is without suicidal homicidal ideation today as well as substance abuse. Nothing further needed from primary care standpoint at this time. Aug, Arm pain, left (ICD-10 - M79.602) Declines imaging, physical therapy, medication, and referral today. Reiterated conservative measures. Patient will monitor closely and notify me when she would like to be more aggressive with management and work-up. Aug, Other *Progress note was completed with the assistance of voice recognition software for dictation purposes. Please excuse any grammatical errors that were not corrected during review process. 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 Patient is agreeable to continuing Tylenol arthritis for relief as well as taking muscle relaxers as needed. I do suggest she take them consistently every night for 4-5 nights in a row in an exacerbation is felt. I did offer the possibility of x-raying the left upper extremity however patient would like to defer at this time. She would like to continue conservative measures and defer physical therapy. She will keep me posted if she feels taking more aggressive measures and work-up is needed. Take muscle relaxer as directed. Do not drink with alcohol or use with other recreational drugs. May cause severe drowsiness. Do not operate a motor vehicle until you know how this medication will effect you. Jul, Anticipatory grief (ICD-10 - F43.20) Lengthy discussion had in regards to grief and mental health. Patient would like to defer counseling referral at this time. She may look for private counseling on her own. Discussed SSRIs at length today. She would like to defer anxiety as needed medications. Take medication as prescribed. Do not stop this medication abruptly without consulting medical provider. Avoid excess alcohol and opioid use while taking this medication. Discussed common, emergent and rare side effects. Weaning off medication is necessary. It may take 4-8 weeks to feel full effect of the medication. If suicidal or homicidal ideation occur, report to ER immediately. We have discussed the importance of medication as an adjunct to therapy in order to control anxiety/depression . Routine F/U is necessary. Jul, Other I have spent 45 minutes with this patient and over 50% of the visit was counseling done by myself, Phillip PANIAGUA. *Progress note was completed with the assistance of voice recognition software for dictation purposes. Please excuse any grammatical errors that were not corrected during review process. [facility] Other Evaluation + Plan note Future Appointments Appointment Date:11/06/2022 10:00:00 AM Scheduled Provider: Location:[facility] Appointment Type:Urology CALL PAT FT Appointment Date:11/13/2022 09:15:00 AM Scheduled Provider: Location:[facility] Appointment Type:Urology FT Appointment Date:01/08/2023 01:00:00 PM Scheduled Provider:Al Bowie MD Location:[facility] Appointment Type: [facility] evaluation + Plan note Future Appointments Appointment Date:01/08/2023 01:00:00 PM Scheduled Provider:Al Bowie MD [facility] Future App[facility]ments Appointment Date:04/09/2023 01:00:00 PM Scheduled Provider:Al Bowie MD Location:[facility] assessment information available [facility] Work Phone: evaluation note* Diagnosis Onset Date Resolution Status Varicose veins of both lower extremities acute Impingement syndrome of right shoulder acute Internal derangement of right shoulder acute Right shoulder pain acute [facility] Work Phone: Evaluation note* Diagnosis Onset Date Resolution Status Varicose veins of both lower extremities acute Impingement syndrome of right shoulder acute Internal derangement of right shoulder acute Right shoulder pain acute Impingement syndrome of right shoulder acute Right rotator cuff tear acut e Right shoulder pain acute [facility] Work Phone: Evaluation note* Diagnosis Onset Date Resolution Status Impingement syndrome of right shoulder acute Right rotator cuff tear acut e Right shoulder pain acute [facility] Work Phone: Evaluation note* Diagnosis Onset Date Resolution Status Impingement syndrome of right shoulder acute Right rotator cuff tear acut e Right shoulder pain acute Impingement syndrome of right shoulder acute Right rotator cuff tear acut e Right shoulder pain acute [facility] Work Phone: Evaluation note* Diagnosis Onset Date Resolution Status Impingement syndrome of right shoulder acute Right rotator cuff tear acut e Right shoulder pain acute Impingement syndrome of right shoulder acute Right rotator cuff tear acut e Right shoulder pain acute Impingement syndrome of right shoulder acute Right rotator cuff tear acut e Right shoulder pain acute Other specified postprocedural states noneactive [facility] Work Phone: Evaluation note* Diagnosis Onset Date Resolution Status Impingement syndrome of right shoulder acute Right rotator cuff tear acut e Right shoulder pain acute Impingement syndrome of right shoulder acute Right rotator cuff tear acut e Right shoulder pain acute Other specified postprocedural states noneactive Impingement syndrome of right shoulder acute Right rotator cuff tear acut e Right shoulder pain acute Other specified postprocedural states noneactive [facility] Work Phone: Evaluation note* Diagnosis Tear of right rotator cuff, unspecified tear extent, unspecified whether traumatic- [facility] Tear of right rotator cuff, unspecified tear extent, unspecified whether traumatic- [facility] Diagnosis Tear of right rotator cuff, unspecified tear extent, unspecified whether traumatic- [facility] Diagnosis Tear of right rotator cuff, unspecified tear extent, unspecified whether traumatic- [facility] Diagnosis Onset Date Resolution Status Impingement syndrome of right shoulder acute Right rotator cuff tear acut e Right shoulder pain acute Other specified postprocedural states noneactive Impingement syndrome of right shoulder acute Right rotator cuff tear acut e Right shoulder pain acute Other specified postprocedural states noneactive Impingement syndrome of right shoulder acute Right rotator cuff tear acut e Right shoulder pain acute Other specified postprocedural states noneactive [facility] Work Phone: Evaluation note* Diagnosis Tear of right rotator cuff, unspecified tear extent, unspecified whether traumatic- Primary documented in this encounter [facility]* Diagnosis Tear of right rotator cuff, unspecified tear extent, unspecified whether traumatic- Primary documented in this encounter [facility]* Diagnosis Tear of right rotator cuff, unspecified tear extent, unspecified whether traumatic- Primary documented in this encounter [facility]* Diagnosis Tear of right rotator cuff, unspecified tear extent, unspecified whether traumatic- Primary documented in this encounter [facility]* Diagnosis Tear of right rotator cuff, unspecified tear extent, unspecified whether traumatic- Primary documented in this encounter [facility]* Diagnosis Tear of right rotator cuff, unspecified tear extent, unspecified whether traumatic- Primary documented in this encounter [facility]* Diagnosis Tear of right rotator cuff, unspecified tear extent, unspecified whether traumatic- Primary documented in this encounter [facility] Healthcare[facility] note* Diagnosis Well woman exam with routine gynecological exam Routine gynecological examination Breast cancer screening by mammogram H/O: hysterectomy Acquired absence of both cervix and uterus Pelvic pain in female Unspecified symptom associated with female genital organs Anxiety, generalized documented in this encounter [facility] HealthcareHistory general Narrative - Reported* Type Description Date Medical History Vascular disorder- u nknown but treated by vascular currently Medical History chronic otitis media of right side 12/13- ENT [facility] resolving Medical History varicose veins BLE Medical History Post-operative state Surgical History appendectomy 1989 Surgical History danette in upper left arm 2003 Surgical History varicose vein stripping-left le 2020 Surgical History uterine ablation September 2020 Hospitalization History see above [facility] Other Hospital course Narrative No data available for this section [facility] Discharge instructions No data available for this section [facility] Additional Instructions HERE ARE SOME IMPORTANT POST-OPERATIVE INSTRUCTIONS FOR YOU: Rotator Cuff Repair/Labrum Repair ACTIVITY 1. Begin gentle shoulder pendulum exercises today. 2. Progress to active elbow/wrist motion as tolerated. 3. Utilize your sling during activity. It is ok to remove sling when sitting. 4. You may need to sleep sitting up to prevent pain. 5. Ice shoulder for 20 minutes every hour as tolerated. DRESSING 1. OK to remove dressings in 24 hours. Apply Band-Aids, and the OK to shower. 2. If there are tape strips over the incision line, do not remove them. MEDICATION 1. Take pain medications as directed every 4-6 hours as needed for pain. 2. Progressively decrease pain medication use as soon as possible. POST-OPERATIVE APPOINTMENT: 1. Return in ONE week for re-evaluation. 2. Call [phone] for further questions.[facility] Work Phone: Progress note No data available for this section [facility] reason for referral (narrative)No reason for referral information available[facility] Work Phone: Chief Complaint and Reason for Visit Chief Complaint M25.512 Chief Complaint Referred for BLE Wally icose Veins OP SP RIGHT SHOULDER PAIN Reason for Visit Varicose veins of gini th lower extremities Impingement syndrome of right shoulder Internal derangement of right shoulder Right shoulder pain Chief Complaint Referred for BLE Wally icose Veins OP SP RIGHT SHOULDER PAIN M24.81 Reason for Visit Varicose veins of gini th lower extremities Impingement syndrome of right shoulder Internal derangement of right shoulder Right shoulder pain Chief Complaint Referred for BLE Wally icose Veins OP SP RIGHT SHOULDER PAIN M24.81 MRI RESULTS Reason for Visit Varicose veins of gini th lower extremities Impingement syndrome of right shoulder Internal derangement of right shoulder Right shoulder pain Impingement syndrome of right shoulder Right rotator cuff tear Right shoulder pain Chief Complaint M24.81 MRI RESULTS Shoulder pain Reason for Visit Impingement syndrome of right shoulder Right rotator cuff tear Right shoulder pain Chief Complaint M24.81 MRI RESULTS Shoulder pain H & P RIGHT SHOULDER ARTHROSCOPY 12-11-23 Reason for Visit Impingement syndrome of right shoulder Right rotator cuff tear Right shoulder pain Impingement syndrome of right shoulder Right rotator cuff tear Right shoulder pain Chief Complaint M24.81 MRI RESULTS Shoulder pain H & P RIGHT SHOULDER ARTHROSCOPY 12-11-23 Shoulder pain Shoulder pain Reason for Visit Impingement syndrome of right shoulder Right rotator cuff tear Right shoulder pain Impingement syndrome of right shoulder Right rotator cuff tear Right shoulder pain Chief Complaint M24.81 MRI RESULTS Shoulder pain H & P RIGHT SHOULDER ARTHROSCOPY 12-11-23 Shoulder pain Shoulder pain M75.101 - Unspecified rotator cuff tear or rupture 1 WEEK POST OP Reason for Visit Impingement syndrome of right shoulder Right rotator cuff tear Right shoulder pain Impingement syndrome of right shoulder Right rotator cuff tear Right shoulder pain Impingement syndrome of right shoulder Right rotator cuff tear Right shoulder pain Other specified postprocedural states Chief Complaint Shoulder pain H & P RIGHT SHOULDER ARTHROSCOPY 12-11-23 Shoulder pain Shoulder pain M75.101 - Unspecified rotator cuff tear or rupture 1 WEEK POST OP 5 WEEKS Reason for Visit Impingement syndrome of right shoulder Right rotator cuff tear Right shoulder pain Impingement syndrome of right shoulder Right rotator cuff tear Right shoulder pain Other specified postprocedural states Impingement syndrome of right shoulder Right rotator cuff tear Right shoulder pain Other specified postprocedural states Chief Complaint Shoulder pain H & P RIGHT SHOULDER ARTHROSCOPY 12-11-23 Shoulder pain Shoulder pain Shoulder pain M75.101 - Unspecified rotator cuff tear or rupture 1 WEEK POST OP 5 WEEKS Reason for Visit Impingement syndrome of right shoulder Right rotator cuff tear Right shoulder pain Impingement syndrome of right shoulder Right rotator cuff tear Right shoulder pain Other specified postprocedural states Impingement syndrome of right shoulder Right rotator cuff tear Right shoulder pain Other specified postprocedural states Chief Complaint Shoulder pain Shoulder pain Shoulder pain M75.101 - Unspecified rotator cuff tear or rupture 1 WEEK POST OP 5 WEEKS 6 WEEKS Reason for Visit Impingement syndrome of right shoulder Right rotator cuff tear Right shoulder pain Other specified postprocedural states Impingement syndrome of right shoulder Right rotator cuff tear Right shoulder pain Other specified postprocedural states Impingement syndrome of right shoulder Right rotator cuff tear Right shoulder pain Other specified postprocedural states Chief Complaint Admit Date 5 WEEKS January 28, 2024 9:02am 6 WEEKS March 10, 2024 9 :03am 4-6 WEEKS April 14, 2024 11:21am Reason for Visit Admit Date Impingement syndrome of right shoulder S eptember 2023 9:02am Right rotator cuff tear January 27 9:02am Right shoulder pain January 28, 2024 9:02am Other specified postprocedural states Se ptember 2023 9:02am Impingement syndrome of right shoulder O ctober 2023 9:03am Right rotator cuff tear March 10 9:03am Right shoulder pain March 10, 2024 9 :03am Other specified postprocedural states Oc tober 2023 9:03am Impingement syndrome of right shoulder N ovember 2023 11:21am Right rotator cuff tear April 14, 2 024 11:21am Right shoulder pain April 14, 2024 11:21am Other specified postprocedural states No vember 2023 11:21am Chief Complaint Admit Date 4-6 WEEKS April 14, 2024 11:21am 10 WEEKS June 29, 2024 1 0:15am Reason for Visit Admit Date Impingement syndrome of right shoulder N ovember 2023 11:21am Right rotator cuff tear April 14, 024 11:21am Right shoulder pain April 14, 2024 11:21am Other specified postprocedural states No vember 2023 11:21am Impingement syndrome of right shoulder F ebruary 2024 10:15am Right rotator cuff tear June 29 10:15am Right shoulder pain June 29, 2024 1 0:15am Other specified postprocedural states Fe bruary 2024 10:15am Chief Complaint Admit Date Screening December 02, 2024 9:08a m Advance Directives Advance Directive Response Recorded Date/ Time Advance Directives No August 20 023 6:00pm Advance Directive Response Recorded Date/ Time Advance Directives No October 06 9:39am Advance Directive Response Recorded Date/ Time Advance Directives No August 20 023 5:00pm Summary Purpose Family History Relationship Condition Age at Onset Recorded Date/T madhu father Arthritis Unknown Not Specified Hypertension Unknown Heart disease Unknown Arthritis Unknown Relationship Condition Age at Onset Recorded Date/T madhu father Arthritis Unknown mother Arthritis Unknown Heart disease Unknown Hypertension Unknown History of heart surgery Unknown Rheumatoid arthritis Unknown Additional Source Comments REASON FOR VISIT (unrecogniz ed section and content) Specialty Diagnoses / Procedures Referred By Toni t Referred To Contact Physical Therapy Diagnoses S/P Right Shoulder arthroscopy w/ supraspinaltus rotator cuff repair; dos 12/18/23 Procedures IN PHYSICAL THERAPY EVALUATION LOW COMPLEX 20 MINS Janna Berger MD [address] [place] [address] Halley Thao, JONNIE Referral ID Status Reason Start Date Expiration Date V isits Requested Visits Authorized [id number] Authorized 01/30/2024 07/28/2024 38 38 Reason Onset Date Comments re: PT today 05/18/2024 Reason Comments Gynecologic Exam Care Teams (unrecognized sec tion and content) Team Status: Active Member Role Status Dates PHYSICIAN NO FAMILY Primary Care Provider Active Team Status: Inactive Member Role Status Dates Janna Berger MD Attending Provider Active PHYSICIAN NO FAMILY Primary Care Provider Active Team Status: Inactive Member Role Status Dates PHYSICIAN NO FAMILY Primary Care Provider Active Janna Berger MD Attending Provider Active Team Status: Active Member Role Status Dates Al Bowie MD Primary Care Provider Active Team Status: Inactive Member Role Status Dates Srinivas Macdonald MD Attending Provider Active S tart: July 29, 2023 End: July 29, 2023 Al Bowie MD Primary Care Provide r, Referring Provider Active Start: July 29, 2023 End: July 29, 2023 Team Status: Inactive Member Role Status Dates Al Bowie MD Primary Care Provider Active Start: August 19, 2023 End: August 19, 2023 Janna Berger MD Attending Provider Active Star t: August 19, 2023 End: August 19, 2023 Team Status: Inactive Member Role Status Dates Al Bowie MD Primary Care Provider Active Start: September 26, 2023 End: September 26, 2023 Janna Berger MD Attending Provider Active Star t: September 26, 2023 End: September 26, 2023 Team Status: Inactive Member Role Status Dates Al Bowie MD Primary Care Provider Active Start: October 01, 2023 End: October 01, 2023 Janna Berger MD Attending Provider Active Star t: October 01, 2023 End: October 01, 2023 Team Status: Inactive Member Role Status Dates Al Bowie MD Primary Care Provider Active Start: November 27, 2023 End: November 27, 2023 Janna Berger MD Attending Provider Active Star t: November 27, 2023 End: November 27, 2023 Team Status: Inactive Member Role Status Dates Al Bowie MD Primary Care Provider Active Start: December 03, 2023 End: December 03, 2023 Janna Berger MD Attending Provider Active Star t: December 03, 2023 End: December 03, 2023 Team Status: Active Member Role Status Dates Al Bowie MD Primary Care Provider Active Start: December 17, 2023 Janna Berger MD Attending Provider, Other Provider A ctive Start: December 17, 2023 Team Status: Inactive Member Role Status Milton Bowie MD Primary Care Provider Active Start: December 18, 2023 End: December 18, 2023 Janna Berger MD Attending Provider Active Star t: December 18, 2023 End: December 18, 2023 Team Status: Active Member Role Status Milton Berger MD Attending Provider Active Star t: December 24, 2023 Al Bowie MD Primary Care Provider Active Start: December 24, 2023 Team Status: Inactive Member Role Status Milton Bowie MD Primary Care Provider Active Start: December 24, 2023 End: December 24, 2023 Janna Berger MD Attending Provider Active Star t: December 24, 2023 End: December 24, 2023 Team Status: Inactive Member Role Status Milton Berger MD Attending Provider Active Star t: December 24, 2023 End: December 24, 2023 Al Bowie MD Primary Care Provider Active Start: December 24, 2023 End: December 24, 2023 Team Status: Inactive Member Role Status Milton Bowie MD Primary Care Provider Active Start: January 28, 2024 End: January 28, 2024 Janna Berger MD Attending Provider Active Star t: January 28, 2024 End: January 28, 2024 Team Status: Inactive Member Role Status Milton Bowie MD Primary Care Provider Active Start: January 28, 2024 End: January 28, 2024 Janna Berger MD Active Start: Jan End: January 28, 2024 REBECCA Brantley Attending Provider Active Start: January 28, 2024 End: January 28, 2024 Team Status: Inactive Member Role Status Milton Bowie MD Primary Care Provider Active Start: December 11, 2023 End: December 11, 2023 Janna Berger MD Attending Provider Active Star t: December 11, 2023 End: December 11, 2023 Team Status: Inactive Member Role Status Milton Bowie MD Primary Care Provider Active Start: March 10, 2024 End: March 10, 2024 Janna Berger MD Attending Provider Active Star t: March 10, 2024 End: March 10, 2024 Team Status: Inactive Member Role Status Dates Al Bowie MD Primary Care Provider Active Start: April 14, 2024 End: April 14, 2024 Janna Berger MD Attending Provider Active Star t: April 14, 2024 End: April 14, 2024 Team Status: Inactive Member Role Status Dates Al Bowie MD Primary Care Provider Active Start: June 29, 2024 End: June 29, 2024 Janna Berger MD Attending Provider Active Star t: June 29, 2024 End: June 29, 2024 Team Status: Inactive Member Role Status Dates Al Bowie MD Primary Care Provider Active Start: December 02, 2024 End: December 02, 2024 Referral Self Attending Provider Active Start: Paulo austin 2024 End: December 02, 2024 Goals (unrecognized section and content) Goals may be documented in a n alternate section INFORMATION SOURCE (unrecogn ized section and content) DATE CREATED AUTHOR 10/08/2022 [facility] DATE CREATED AUTHOR AUTHOR'S ORGANIZ ATION 05/23/2024 [facility] DATE CREATED AUTHOR AUTHOR'S ORGANIZ ATION 11/20/2024 [facility] DATE CREATED AUTHOR AUTHOR'S ORGANIZ ATION 12/06/2024 [facility] FOR RECORDS PERTAINING TO PATIENTS WHO ARE OR HAVE BEEN ENROLLED IN A CHEMICAL DEPENDENCY/SUBSTANCEABUSE PROGRAM, SOME INFORMATION MAY BE OMITTED. This clinical summary was aggregated from multiple sources. Caution should be exercised in using it in the provision of clinical care. This summary normalizes information from multiple sources, and as a consequence, information in this document may materially change the coding, format and clinical context of patient data. In addition, data may be omitted in some cases. CLINICAL DECISIONS SHOULD BE BASED ON THE PRIMARY CLINICAL RECORDS. [email or web address] provides no warranty or guarantee of the accuracy or completeness of information in this document.
[2024-12-11 15:09] LABS: Age Gdln ACOG Testing Note (.); IGP, Aptima HPV, rfx 16/18,45 Note (.)
== END 2024-12-09 15:01 | disposition home or self-care (01) ==
LOC: LAB 15:00
PROVIDERS: PCP Family Medicine; Visit Provider Physician Assistant
DX: Z01.419 Encounter for gynecological examination (general) (routine) without abnormal findings (principal)
CPT/HCPCS: 87624; 88175

== ENCOUNTER 2024-12-21 09:52 | Outpatient (OUT) | payer OTHER, SELFPAY ==
--- OUTSIDE RECORDS SUMMARY | 2024-12-09 13:00 | XMS_ITS | Encounter Summary ---
Author Organization [facility] Address [address] [place] [address] Care Team Providers Care Music Composition Teacher Name Role Phone Unavailable Primary Care Provider Unavailabl e Reason for Visit * Reason Comments Gynecologic Exam Encounter Details Date Type Department Care Team (Late st Contact Info) Description 12/09/2024 1:00 PM EDT Office Visit [facility] [address] [place] [address] Eduarda Paul PA [address] [place], [facility] Well woman exam with routine gynecological exam; [...] nursing note reviewed. Exam conducted with a vocational coordinator present. Vitals: Estimated body mass index is 40.6 kg/m?? as calculated from the following: Height as [...] 12/13/2025 2:00 PM EDT Procedure Visit [facility] [address] [place] [phone] Eduarda Paul PA [address] [place] [address] Scheduled Orders Name Type Priority Associated Diagnoses [...]
--- OUTSIDE RECORDS SUMMARY | 2024-12-21 09:53 | XMS_ITS | Continuity of Care Document ---
Author Name [facility] Organization [facility] Care Team Providers Care Thoroughbred Horse Farm Manager Name Role Phone [facility] Unavailable Unavailable Social History Combined list of available smoking, tobacco, and other social history from Department of Defense and Veterans Affairs facilities. Social History Type Response Date Comment Sourc e This section is an empty social history section. DoD
--- OUTSIDE RECORDS SUMMARY | 2024-12-21 09:54 | XMS_ITS | Encounter Summary ---
Author Organization [facility] Address [address] [place] [address] Care Team Providers Care Office Equipment Mechanic Name Role Phone Unavailable Primary Care Provider Unavailabl e Encounter Details Date Type Department Care Team (Late Contact Info) Description 12/16/2024 Orders Only [facility] [address] [place] [address] [place] [address] Bibiana Lombardo LPN [address] [place] [address] Social History Tobacco Use Types Packs/Day Years [...] Encounters Date Type Department Care Team (Late Contact Info) Description 12/13/2025 2:00 PM EDT Procedure Visit [facility] [address] [facility] [address] Eduarda Paul PA [address] [place], [facility]11 documented as of this encounter Procedures Procedure Name Priority Date/Time Associated Diagnosis Comments PAP SMEAR Routine 12/09/2024 12:00 AM EDT documented in this encounter Results * Pap Smear (12/09/2024 12:00 AM EDT) Swab Cervical swab / Unknown us Zahira Nurse [facility] LAB CYTOLOGY ORDERABLES Final Result EXTERNAL LAB documented in this encounter Visit Diagnoses Not on filedocumented in this encounter
--- OUTSIDE RECORDS SUMMARY | 2024-12-21 09:54 | XMS_ITS | Clinical Summary ---
Author Organization [email or web address] Address [id number] [address] [place] [address] Care Team Providers Care Manager Test Name Role Phone Unavailable Primary Care Provider Unavailabl e Allergies Active Allergy Reactions Criticality Noted Date Comments Celecoxib 08/29/2020 Meperidine 08/29/2020 Sulfur 08/29/2020 Medications fexofenadine (YADIRA) 60 mg tablet Take 60 mg by mouth daily. Active fluticasone propionate (FLONASE) 50 mcg/actuation nasal sprayIndications :Nasal congestion Administer 1 spray into each nostril daily. 15.8 mL 12 Active cetirizine (ZyrTEC) 10 mg tabletIndication s:Allergic rhinitis, unspecified seasonality, unspecified trigger Take 1 tablet (10 mg total) by mouth daily as needed for allergies. 30 tablet 11 Active Active Problems Problem Noted Date Diagnosed Date Nasal congestion 08/29/2020 Eustachian tube dysfunction 08/29/2020 Social History Tobacco Use Types Packs/Day Years Used Date Smoking Tobacco: Never Smokeless Tobacco: Never Alcohol Use Standard Drinks/Week Comments Not Currently 0 (1 standard drink = 0.6 oz pur e alcohol) Childcare Answer Date Recorded Childcare Unknown 08/18/2020 Employment Answer Date Recorded Employment Unknown 08/18/2020 Purpose - Life Answer Date Recorded Purpose and direction in life Unknown Comments Unknown Sex and Gender Information Value Date Recorded Sex Assigned at Not on file Legal Sex Female 4:08 PM EDT Gender Identity Not on file Sexual Orientation Not on file Last Filed Vital Signs Vital Sign Reading Time Taken Comments Blood Pressure - - Pulse - - Temperature - - Respiratory Rate - - Oxygen Saturation - - Inhaled Oxygen Concentration - - Weight 112 kg (247 lb) 10/03/2020 10:19 AM EDT Height 165.1 cm (5' 5 ) 10/03/2020 10:19 AM EDT Body Mass Index 41.1 10/03/2020 10:19 AM EDT Plan of Treatment Health Maintenance Due Date Last Done Comments Depression Screening 1989 Tobacco Screening 1989 Adult BMI Screening 08/31/1995 DTaP,Tdap and Td Vaccines (1 - Tdap) 1996 Pap Smear 1998 Influenza Vaccine 01/25/2025 Medical Devices Not on file Insurance [id number]
--- OUTSIDE RECORDS SUMMARY | 2024-12-21 09:55 | XMS_ITS | Encounter Summary ---
Author Organization [facility] Address [address] [place] [address] Care Team Providers Care Flag Car Driver Name Role Phone Unavailable Primary Care Provider Unavailabl e Encounter Details Date Type Department Care Team (Late Contact Info) Description 11/19/2023 Orders Only [facility] [address] [place] [address] [place] [address] Bibiana Lombardo LPN [address] [place] [place] [address] Social History Tobacco Use Types Packs/Day Years [...] EDT Procedure Visit [facility] [address] [facility] [place] [address] Eduarda Paul PA [address] [place], [facility]11 documented as of this encounter Procedures [...]
--- OUTSIDE RECORDS SUMMARY | 2024-12-21 09:55 | XMS_ITS | Encounter Summary ---
Author Organization [facility] Address [address] [facility] [place] [address] Care Team Providers Care Custody Officer Name Role Phone Unavailable Primary Care Provider Unavailabl e Encounter Details Date Type Department Care Team (Late st Contact Info) Description 12/09/2024 Clinisync Result Encounter [facility] External Department Unsolicited Eduarda Paul, AMELIA [address] [place], [place] [address] Social History Tobacco Use Types Packs/Day Years [...] Description 12/13/2025 2:00 PM EDT Procedure Visit [facility] [address] [place] [address] Eduarda Paul PA [address] [place], [place] [address] documented as of this encounter Procedures Procedure Name Priority Date/Time Associated Diagnosis Comments IGP,APTIMA HPV,AGE GDLN Routine 12/09/2024 1:03 PM EDT documented in this encounter Results * IGP,APTIMA HPV,AGE GDLN (12/09/2024 1:03 PM EDT) AGE GDLN ACOG TESTING Note . [facility] Comment: TESTS RESULT FLAG UNITS REF RANGE LAB Clinician Provided Cytology Information Source.............Vagina No. of containers..01 ThinPrep Vial Age Algo ACOG Morelia... 32 FLAG LEGEND: L-Low Normal,H-High Normal,LL-Alert Low,HH-Alert High <-Panic Low,>-Panic High,A-Abnormal,AA-Critical Abnormal Performed at: 01 =G [address] [address] Summer Collazo MD, IGP, APTIMA HPV, RFX 16/18,45 Note . [facility] Comment: TESTS RESULT FLAG UNITS REF RANGE LAB DIAGNOSIS: 02 NEGATIVE FOR INTRAEPITHELIAL LESION OR MALIGNANCY. Specimen adequacy: 02 Satisfactory for evaluation. No endocervical component is identified. Performed by: Marlyn Riggs, Personnel Supervisor ([facility]) . Note: Note 02 The Pap smear is a screening test designed to aid in the detection of premalignant and malignant conditions of the uterine cervix. It is not a diagnostic procedure and should not be used as the sole means of detecting cervical cancer. Both false-positive and false-negative reports do occur. Test Methodology: Note 02 This liquid based ThinPrep(R) pap test was screened with the use of an image guided system. HPV Genotype Reflex Note 02 Criteria not met, HPV Genotype not performed. FLAG LEGEND: L-Low Normal,H-High Normal,LL-Alert Low,HH-Alert High <-Panic Low,>-Panic High,A-Abnormal,AA-Critical Abnormal Performed at: [address] [address] Summer Collazo MD, HPV APTIMA Negative Negative [facility] Comment: This nucleic acid amplification test detects fourteen high- risk HPV types (16,18,31,33,35,39,45,51,52,56,58,59,66,68) without differentiation. Performed at: = - [address] [id number] Liquid Chlorine Operator: Summer Collazo MD, Phone: [phone] Performed at: [address] [id number] Liquid Chlorine Operator: Summer Collazo MD, Phone: [phone] 12/09/2024 1:03 PM EDT 12/09/2024 3:11 PM EDT Narrative [facility] - 12/11/2024 3:09 PM EDT SPATULA-ALONE VAGINA us Eduarda CISNEROS LAB BLOOD ORDERABLES Final [facility]ul t [facility] documented in this encounter Visit Diagnoses Not on filedocumented in this encounter
--- OUTSIDE RECORDS SUMMARY | 2024-12-21 09:55 | XMS_ITS | Clinical Summary ---
Author Organization [facility] Address [address] [facility] [place] [address] Care Team Providers Care Crate Opener Name Role Phone Unavailable Primary Care Provider [...] by mouth in the morning. 3 12/10/19 25 Discontinu ed(Therapy completed) diclofenac (Voltaren) 75 MG EC tablet Twice daily 4 12/10/19 Discontinu ed(Therapy completed) Encounters Date Type Department Care Team Description 12/16/2024 [place] [address] Bibiana Lombardo, STAFFING MANAGER 12/11/2024 [place] [phone] Moon West, STAFFING MANAGER 12/10/2024 [place] [address] Fareed Rodriges, 12/09/2024 1:00 PM ED[place] [address] Eduarda Paul PA Well woman exam with routine gynecological exam; Breast cancer screening by mammogram; H/O: hysterectomy; Pelvic pain in female; Anxiety, generalized 12/09/2024 Clinisync Result Encounter NOMS External Department Unsolicited Eduarda Paul PA 12/09/2024 Bamboo flowsheet [facility] [address] [place] [phone] Eduarda Paul PA from Last 3 Months [...] EDT Procedure Visit N[facility] [address] [facility] [place] [address] Eduarda Paul PA [address] [facility] [place] [address] Procedures Procedure Name Priority Date/Time Associated Diagnosis Comments IGP,APTIMA HPV,AGE GDLN Routine 12/09/2024 1:03 PM EDT PAP SMEAR Routine 12/09/2024 12:00 AM EDT from Last 3 Months Results * IGP,APTIMA HPV,AGE GDLN (12/09/2024 1:03 PM EDT) AGE GDLN ACOG TESTING Note . [facility] Comment: TESTS RESULT FLAG UNITS REF RANGE LAB Clinician Provided Cytology Information Source.............Vagina No. of containers..01 ThinPrep Vial Age Algo ACOG Morelia... 30-65 01 FLAG LEGEND: L-Low Normal,H-High Normal,LL-Alert Low,HH-Alert High <-Panic Low,>-Panic High,A-Abnormal,AA-Critical Abnormal Performed at: 01 =[facility] [address] [facility] [address] Summer Collazo MD, IGP, APTIMA HPV, RFX 16/18,45 Note . [facility] Comment: TESTS RESULT FLAG UNITS REF RANGE LAB DIAGNOSIS: 02 NEGATIVE FOR INTRAEPITHELIAL LESION OR MALIGNANCY. Specimen adequacy: 02 Satisfactory for evaluation. No endocervical component is identified. Performed by: Marlyn Riggs, Director Of Sustainability ([facility]) . 02 Note: Note 02 The Pap smear is [...] <-Panic Low,>-Panic High,A-Abnormal,AA-Critical Abnormal Performed at: [address] [address] Summer Collazo MD, HPV APTIMA Negative Negative [facility] Comment: This nucleic acid amplification test detects fourteen high- risk HPV types (16,18,31,33,35,39,45,51,52,56,58,59,66,68) without differentiation. Performed at: =[address] [id number] Sprayer Insecticide: Summer Collazo MD, Phone: [phone] Performed at: [address] [id number] Sprayer Insecticide: Summer Collazo MD, Phone: [phone] 12/09/2024 1:03 PM EDT 12/09/2024 3:11 PM EDT Narrative [facility] - 12/11/2024 3:09 PM EDT SPATULA-ALONE VAGINA Eduarda CISNEROS LAB BLOOD ORDERABLES Final Resul t [facility] * Pap Smear (12/09/2024 12:00 AM EDT) Swab Cervical swab / Unknown Zahira Nurse [facility] LAB CYTOLOGY ORDERABLES Final Result EXTERNAL LAB from Last 3 Months Insurance [facility]
--- OUTSIDE RECORDS SUMMARY | 2024-12-21 09:55 | XMS_ITS | Encounter Summary ---
Author Organization [facility] Address [address] [place] [address] Care Team Providers Care Director Of Radiology Name Role Phone Unavailable Primary Care Provider Unavailabl e Encounter Details Date Type Department Care Team (Late Contact Info) Description 12/09/2024 Bamboo flowsheet [facility] [address] [facility] [place], [id number] Eduarda Paul PA [address] [place], [place] [address] Social History Tobacco Use Types Packs/Day Years [...] EDT Procedure Visit [facility] Bruno [facility] [address] [facility] [place] [phone] Eduarda Paul PA [address] [facility] [facility] [address] [place], [facility]11 documented as of this encounter Visit Diagnoses Not on filedocumented in this encounter
--- OUTSIDE RECORDS SUMMARY | 2024-12-21 09:55 | XMS_ITS | Encounter Summary ---
Author Organization [facility] Address [address] [place] [address] Care Team Providers Care Helicopter Pilot Instructor Name Role Phone Unavailable Primary Care Provider Unavailabl e Encounter Details Date Type Department Care Team (Late st Contact Info) Description 11/14/2023 Clinisync Result Encounter NOMS External Department Unsolicited Fareed Rodriges DO [address] [facility] [address] [place], [place] [address] Social History Tobacco Use Types Packs/Day Years [...] 2:00 PM EDT Procedure Visit [facility] [place] [facility]BGYJuan [address] [facility] [place] [address] Eduarda Paul PA [address] [facility] [address] [place], [place] [address] documented as of this encounter Procedures Procedure Name Priority Date/Time Associated Diagnosis Comments MM TOMOSYNTHESIS SCREENING BI 11/14/2023 9:15 AM EDT documented in this encounter Results * MM TOMOSYNTHESIS SCREENING BI (11/14/2023 9:15 AM EDT) Anatomical Region Laterality Modality Other 11/14/2023 9:15 AM EDT Narrative 11/14/2023 9:16 AM EDT The [address] [address] Mammography Report Signed Patient: LISSA BALLESTEROS MR#: [id number] : 1975 Acct:[id number] Age/Sex: 48 / F ADM Date: 11/13/23 Loc: MAMMO Attending Dr: Fareed Rodriges D.O. Ordering Physician: Fareed Rodriges D.O. Results: Date of Service: 11/13/23 Follow Up: Procedure(s): MM tomosynthesis screening BI Accession Number(s): [id number] cc: Fareed Rodriges D.O.; PREMA HOGAN Patient Name: LISSA BALLESTEROS MR#: [id number] : 1975 Exam Date: 11/13/2023 Ordering Doctor: [...] Treatments None Family Cancers None LOCATION: The [facility] BREAST COMPOSITION: The breasts are [...] 09:15 Dictated By: Derrell Sheldon M.D. Signed By: 11/14/23915 DD/ 4 TD/TT: Dermatology Nurse: Procedure Note Radiology, Radiologist, MD - 11/14/2023 [place] [address] Mammography Report Signed Patient: LISSA BALLESTEROS LMR#: [id number] : 1975Acct:[id number] Age/Sex: 48 / FADM Date: 11/13/23 Loc: MAMMO Attending Dr: Fareed Rodriges D.O. Ordering Physician: Fareed Rodriges D.O.Results: Date of Service: 11/13/23Follow Up: Procedure(s): MM tomosynthesis screening BI Accession Number(s): [id number] cc: Fareed Rodriges D.O.; PREMA HOGAN Patient Name: LISSA BALLESTEROS MR#: [id number] : 1975 Exam Date: 11/13/2023 Ordering Doctor: [...] Treatments None Family Cancers None LOCATION: The [facility] BREAST COMPOSITION: The breasts are [...] Sheldon M.D. Signed By:11/14/23915 DD/ 4 TD/TT: Dermatology Nurse: us Fareed Zahira DO [facility] Final Result documented in this encounter Visit Diagnoses Not on filedocumented in this encounter
--- OUTSIDE RECORDS SUMMARY | 2024-12-21 09:55 | XMS_ITS | Encounter Summary ---
Author Organization [facility] Address [address] [place] [address] Care Team Providers Care Buzzsaw Operator Helper Name Role Phone Unavailable Primary Care Provider Unavailabl e Encounter Details Date Type Department Care Team (Late st Contact Info) Description 11/09/2022 Abstract [facility] [address] [place] [address] [place] [address] Fareed Rodriges DO [address] [facility] [address] [place], [facility]11 Social History Tobacco Use Types Packs/Day Years [...] Description 12/13/2025 2:00 PM EDT Procedure Visit YOL[facility]DE L[facility] [address] [facility] [place] [address] Eduarda Paul PA [address] [facility] [address] [place], [facility]11 documented as of this encounter Visit Diagnoses Not on filedocumented in this encounter
--- OUTSIDE RECORDS SUMMARY | 2024-12-21 09:55 | XMS_ITS | Encounter Summary ---
Author Organization [facility] Address [address] [place] [address] Care Team Providers Care Demurrage Clerk Name Role Phone Unavailable Primary Care Provider Unavailabl e Encounter Details Date Type Department Care Team (Late Contact Info) Description 12/10/2024 Abstract [facility] [address] [facility] [address] Fareed Rodriges DO [address] [facility] [address] [place], [place] [address] Social History Tobacco Use Types Packs/Day Years [...] EDT Procedure Visit [facility] [address] [facility] [address] Eduarda Paul PA [address] [facility] [address] [place], [facility]11 documented as of this encounter Visit Diagnoses Not on filedocumented in this encounter
--- OUTSIDE RECORDS SUMMARY | 2024-12-21 09:55 | XMS_ITS | Encounter Summary ---
Author Organization [facility] Address [address] [place] [address] Care Team Providers Care Emt Driver Name Role Phone Unavailable Primary Care Provider Unavailabl e Encounter Details Date Type Department Care Team (Late st Contact Info) Description 12/11/2024 Telephone [facility] [address] [phone] Moon West LPN [address] [facility] [place] [phone] Social History Tobacco Use Types Packs/Day Years [...] on file documented as of this encounter Miscellaneous Notes * Telephone Encounter - Moon West LPN - 12/11/2024 9:42 AM EDT Hi, this is Lissa Zheng calling back again. My phone numbers [phone] talked to Randa yesterday about my yearly that I was in for the other day and we had said about not doing blood work. The more I think about it, I do want to go ahead and do that. Blood work since especially since it is theyearly it will fall under and it will get covered by the insurance. So if you can just give me a call back and let me know how I go about getting the blood work done. I am at work today, so if you can leave me a voicemail. Thank you. Virgil. Wellness labs were faxed over the [facility]. [facility] documented in this encounter Plan of Treatment Upcoming Encounters Date Type Department Care Team (Late st Contact Info) Description 12/13/2025 2:00 PM EDT Procedure Visit [facility] [address] [facility] [place] [address] Eduarda Paul PA [address] [facility] [place] [address] Scheduled Orders Name Type Priority Associated Diagnoses Orde r Schedule Hemoglobin A1c Lab Routine Wellness examination Expected: 12/11/2024 (Approximate), Expires: 12/11/2025 CBC auto differential Lab Routine Wellness examination Expected: 12/11/2024 (Approximate), Expires: 12/11/2025 TSH Lab Routine Wellness examination Expected: 12/11/2024 (Approximate), Expires: 12/11/2025 Cholesterol, total Lab Routine Wellness examination Expected: 12/11/2024 (Approximate), Expires: 12/11/2025 Comprehensive metabolic panel Lab Routine Wellness examination Expected: 12/11/2024 (Approximate), Expires: 12/11/2025 documented as of this encounter Visit Diagnoses Diagnosis Wellness examination documented in this encounter
--- NOTE | 2024-12-21 09:57 | US_ITS ---
The [address] [address] Patient Name: YOKASTA BALLESTEROS MRN: [id number] date: 1975 Sex: F Assigned Patient Location: Current Patient Location: LAB Accession/Order Number: [id number] Exam Date: 12/21/2024 11:10 Report Date: 12/21/2024 11:14 At the request of: KYLIE POOLE DO Procedure: US pelvis w/ transvaginal PELVIC ULTRASOUND WITH TRANSVAGINAL CLINICAL DATA: Pelvic pain and pressure. Prior partial hysterectomy. COMPARISON: 08/27/2022 Real-time ultrasound evaluation the pelvis was performed utilizing both a transabdominal and transvaginal approach. TRANSABDOMINAL: The urinary bladder is not well-distended. The uterus is surgically absent. The vaginal cuff shows no abnormalities. Neither ovary is identified. TRANSVAGINAL: Transvaginal imaging was performed to better evaluate the pelvis. The uterus is surgically absent. No vaginal cuff abnormalities are identified. The left ovary is seen. It measures 2.5 x 1.4 x 1.6 cm. It contains an irregular cystic structure with thickened wall measuring 1.5 x 1.6 x 1.4 cm. There is documentation of left ovarian blood flow with resistive index of 0.49. The right ovary was not identified due to increased bowel gas. There is a trace amount of free pelvic fluid. US/US pelvis w/ transvaginal IMPRESSION: SMALL COMPLICATED CYSTIC LESION ON THE LEFT. THIS MIGHT BE AN INVOLUTING CORPUS LUTEUM OF MENSTRUATION GIVEN PATIENT'S AGE. NONVISUALIZATION OF THE RIGHT OVARY. NO OTHER SIGNIFICANT FINDINGS. Impression dictated by: Aida Abernathy M.D. 12/21/2024 11:14 AM Dictation Location: [place] [address] Electronically authenticated by: [id number] Y Date: 12/21/2024 11:14
--- OUTSIDE RECORDS SUMMARY | 2024-12-21 10:01 | XMS_ITS | CCD ---
Author Organization [facility] Care Team Providers Care Applications Chemist Name Role Phone Breanna Phillip Unavailable Janna Berger Unavailable MD Janna Berger Attending Provider NO FAMILY, PHYSICIAN Primary Care Provider Unava ilable ZULEMA ., DR ESPINAL Consulting Unavailable ZULEMA ., DR ESPINAL Attending Unavailable [facility], [facility] Primary Care Unavailable ZULEMA ., DR ESPINAL Admitting Unavailable ZIEBER, DR LANE Manuel Consulting Unavailable ZULEMA ., DR ESPINAL Consulting Unavailable ZULEMA ., DR ESPINAL Attending Unavailable [facility], PHILLIP Primary Care Unavailable ZULEMA ., DR ESPINAL Admitting Unavailable [place], PHILLIP Primary Care Unavailable ZULEMA ., DR ESPINAL Consulting Unavailable ZULEMA ., DR ESPINAL Attending Unavailable ZULEMA ., DR ESPINAL Admitting Unavailable ZULEMA ., DR ESPINAL Consulting Unavailable ZULEMA ., DR ESPINAL Attending Unavailable [place], PHILLIP Primary Care Unavailable ZULEMA ., DR ESPINLA Admitting Unavailable MARY PERERA Consulting Unavailable IRENE OCAMPO Consulting Unavailable ZULEMA ., DR ESPINAL Consulting Unavailable ZULEMA ., DR ESPINAL Attending Unavailable [facility], PHILLIP Primary Care Unavailable ZULEMA ., DR ESPINAL Admitting Unavailable ZULEMA ., DR ESPINAL Consulting Unavailable ZULEMA ., DR ESPINAL Attending Unavailable ZULEMA ., DR ESPINAL Admitting Unavailable [facility], PHILLIP Primary Care Unavailable Al Bowie Primary Care Physician NO FAMILY, PHYSICIAN Primary Care Provider Unava ilable MD Janna Berger Attending Provider Heavenly Pitt Unavailable MD Al Bowie Primary Care Provider [phone] MD Janna Berger Attending Provider MD Al Bowie Primary Care Provider [phone] MD Al Bowie Primary Care Provider [phone] MD Janna Berger Attending Provider Unavailable Primary Care Provider UnavailMD Al Jenkins Primary Care Provider [phone] MD Janna Berger Attending Provider Doug MCDANIEL Attending Unavailable Al Bowie MD Primary Care Provider [phone] Self, Referral Attending Provider Unavailable Al Bowie Primary Care Unavailable Olekateryna, Janna Admitting Unavailable Olexa, Janna Attending Unavailable Self, Referral Admitting Unavailable Self, Referral Attending Unavailable Al Bowie Primary Care Unavailable Al Bowie Primary Care Unavailable Olexa, Janna Admitting Unavailable Olexa, Janna Attending Unavailable EDUARDA THAYER Attending Unavailable HALLEY THAO Attending Unavailable OLEXA, JANNA Referring Unavailable ANISH ARAGON Attending Unavailable OLEXA, JANNA Referring Unavailable HALLEY THAO Attending Unavailable UNALLOCATED, NOMS PROVIDER Referring Unava ilable BRLINDSAY, TONYA Attending Unavailable OLEXA, JANNA Referring Unavailable BRLINDSAY, TONYA Attending Unavailable UNALLOCATED, NOMS PROVIDER Referring Unava ilable BRINK, TONYA Attending Unavailable UNALLOCATED, NOMS PROVIDER Referring Unava ilable BRINK, TONYA Attending Unavailable OLEXA, JANNA Referring Unavailable BRLINDSAY, TONYA Attending Unavailable OLEXA, JANNA Referring Unavailable BRLINDSAY, TONYA Attending Unavailable OLEXA, JANNA Referring Unavailable BRINK, TONYA Attending Unavailable OLEXA, JANNA Referring Unavailable HALLEY THAO Attending Unavailable OLEXA, JANNA Referring Unavailable BRINK, TONYA Attending Unavailable OLEXA, JANNA Referring Unavailable BRLINDSAY, TONYA Attending Unavailable OLEXA, JANNA Referring Unavailable BRLINDSAY, TONYA Attending Unavailable OLEXA, JANNA Referring Unavailable HALLEY THAO Attending Unavailable OLEXA, JANNA Referring Unavailable ANISH ARAGON Attending Unavailable OLEXA, JANNA Referring Unavailable BRLINDSAY, TONYA Attending Unavailable OLEXA, JANNA Referring Unavailable BRLINDSAY, TONYA Attending Unavailable OLEXA, JANNA Referring Unavailable ANUJA CRAFT Attending Unavailable OLEXA, JANNA Referring Unavailable HALLEY THAO Attending Unavailable OLEXA, JANNA Referring Unavailable BRINK, TONYA Attending Unavailable OLEXA, JANNA Referring Unavailable BRINK, TONYA Attending Unavailable OLEXA, JANNA Referring Unavailable BRINK, TONYA Attending Unavailable OLEXA, JANNA Referring Unavailable BRINK, TONYA Attending Unavailable OLEXA, JANNA Referring Unavailable THAO, HALLEY Attending Unavailable OLEXA, JANNA Referring Unavailable BRINK, TONYA Attending Unavailable OLEXA, JANNA Referring Unavailable THAO, HALLEY Attending Unavailable OLEXA, JANNA Referring Unavailable BRINK, TONYA Attending Unavailable OLEXA, JANNA Referring Unavailable BRINK, TONYA Attending Unavailable OLEXA, JANNA Referring Unavailable MAHESH, ANISH Attending Unavailable OLEXA, JANNA Referring Unavailable MAHESH, ANISH Attending Unavailable OLEXA, JANNA Referring Unavailable BRINK, TONYA Attending Unavailable OLEXA, JANNA Referring Unavailable THAO, HALLEY Attending Unavailable OLEXA, JANNA Referring Unavailable MAHESH, ANISH Attending Unavailable OLEXA, JANNA Referring Unavailable BRINK, TONYA Attending Unavailable OLEXA, JANNA Referring Unavailable BRINK, TONYA Attending Unavailable OLEXA, JANNA Referring Unavailable KELBLEY, ANUJA Attending Unavailable OLEXA, JANNA Referring Unavailable KELBLEY, ANUJA Attending Unavailable OLEXA, JANNA Referring Unavailable BRINK, TONYA Attending Unavailable OLEXA, JANNA Referring Unavailable Allergies Allergy Classification Reported Allergen(s) Allergy Type Date of Onset Reaction(s) Facility (20 sources) celecoxib; Translations: [celecoxib] Drug Allergy 08-19-19 24 rash, Unknown (qualifier value) [facility] (20 sources) Meperidine; Translations: [meperidine] Drug Allergy 08-30-19 21 rash, Unknown (qualifier value) [facility] (4 sources) Sulf-10 Drug allergy rash [employer] Other (2 sources) celecoxib; Translations: [CeleBREX] Drug Allergy [facility] (7 sources) Latex; Translations: [Latex] Drug allergy (disorder) 05-23-20 17 Eruption of skin (disorder) [facility] (2 sources) Meperidine; Translations: [Demerol] Drug Allergy [facility] (1 source) Sulfonamides (Antibiotic) Drug allergy (disorder) 03-13-20 13 [facility] (6 sources) cefprozil; Translations: [cefprozil] Drug Allergy Unknown (qualifier value) [facility] (20 sources) gabapentin; Translations: [gabapentin] Drug Allergy 11-13-19 Unknown (qualifier value) [facility] (20 sources) medroxyPROGESTERone ; Translations: [medroxyprogesteron e] Drug Allergy 11-13-19 24 Unknown (qualifier value) [facility] (6 sources) meloxicam; Translations: [meloxicam] Drug Allergy Unknown (qualifier value) [facility] (9 sources) Sulfamethoxazole / Trimethoprim; Translations: [sulfamethoxazole-t rimethoprim] Drug Allergy 12-10-19 Unknown (qualifier value) [facility] (16 sources) Sulfonamides (Antibiotic); Translations: [Sulfa (Sulfonamide Antibiotics)] Allergy to substance 08-19-19 [facility] (20 sources) celecoxib Drug Allergy 08-30-19 [facility] Work Phone: (20 sources) Latex Allergy to substance 11-10-19 [facility] (20 sources) Sulfonamides (Antibiotic) Drug Allergy 11-10-19 [facility] (20 sources) Sulfur Drug Allergy 08-30-[address] [facility] (1 source) Naproxen; Translations: [Aleve] Drug Allergy [facility]ository (3 sources) Cefprozil Allergy to substance 12-10-[address] [facility] (3 sources) meloxicam Drug Allergy 12-10-[address] [facility] (3 sources) Meperidine Drug Allergy 12-10-19 [facility] (3 sources) Naproxen Drug Allergy 12-10-[address] [facility] (1 source) celecoxib Drug Allergy 06-29-19 [facility] (1 source) Meperidine Drug Allergy 06-29-19 [facility] Repository Medications Current Medications Medication Drug Class(es) Dates Sig (Normalized) Sig (Original) cetirizine hydrochloride 10 mg oral tablet (2 sources) Histamine-1 Receptor Antagonist take 1 tablet by mouth at bedtime ZyrTEC Allergy 10 MG 1 tablet Orally HS Active take 1 tablet by mouth at bedtim e ZyrTEC Allergy 10 MG 1 tablet Orally HS Active citalopram 20 mg oral tablet (4 sources) Serotonin Reuptake Inhibitor Start: 12-09-2024 End: [...] Daily, # 30 tab(s), Refills(s) 2, Pharmacy: [id number], 165, cm, 04/09/23 13:09:00 EST, [...] cap(s), Oral, qAM, 30 cap(s), Refill(s) 2, [facility]/pharmacy #[id number], 165, cm, 01/08/23 13:06:00 EDT, Height/Length [...] procedure, # 2 tab(s), Refills(s) 0, Pharmacy: [facility]/pharmacy #[id number], 165, cm, 06/18/23 14:10:00 EST, Height/Length [...] procedure, # 2 tab(s), Refills(s) 0, Pharmacy: [facility]/pharmacy #[id number], 165, cm, 06/18/23 14:10:00 EST, Height/Length [...] Orally Twice a day for 30 days 14 Apr, 2023 Active omeprazole 20 mg delayed release oral [...] suspension (4 sources) Corticosteroid Start: 08-20-2022 Kenalog-40 14 Apr, 2023 40 mg Turmeric extract (12 sources) Start: [...] Translations: [Pain in female pelvis] Onset: 10-04-2022 12-09-2024 Episodic Adjustment disorders (1 source) Adjustment disorder, [...] conditions (not mental disorders or infectious disease) (8 sources) Encounter for screening mammogram for malignant [...] Test Name Value Interpretation Reference Range Facility IGP,APTIMA HPV,AGE GDLNon AGE GDLN ACOG TESTING Note . [facility] Comment on above: TESTS RESULT FLAG UN ITS REF RANGE LAB Clinician Provided Cytology Information Source.............Vagina No. of containers..01 ThinPrep Vial Age Algo ACOG Morelia... 01 FLAG LEGEND: L-Low Normal,H-High Normal,LL-Alert Low,HH-Alert High <-Panic Low,>-Panic High,A-Abnormal,AA-Critical Abnormal Performed at: 01 =G [address] [place] [address] Summer Collazo MD, HPV APTIMA Negative Negative [facility] Comment on above: This nucleic acid am plification test detects fourteen high- risk HPV types (16,18,31,33,35,39,45,51,52,56,58,59,66,68) without differentiation. Performed at: = - [address] [id number] Airborne Sensor Specialist: Summer Collazo MD, Phone: [phone] Performed at: - [facility] [id number] Airborne Sensor Specialist: Summer Collazo MD, Phone: [phone] IGP, APTIMA HPV, RFX 16/18,[address] [facility] Comment on above: TESTS RESULT FLAG UN ITS REF RANGE LAB DIAGNOSIS: 02 NEGATIVE FOR INTRAEPITHELIAL LESION OR MALIGNANCY. Specimen adequacy: 02 Satisfactory for evaluation. No endocervical component is identified. Performed by: Marlyn Riggs, Supervising Bailiff (ASCP) . 02 Note: Note 02 The Pap [...] <-Panic Low,>-Panic High,A-Abnormal,AA-Critical Abnormal Performed at: 02 WB [facility] [address] [address] Summer Collazo MD, [facility] MM screening mammo BI w/CADo n 12-02-2024 MM screening mammo BI w/CAD [facility] [address] [place] [address] Mammography Report Signed Patient: Yokasta Zheng MR#: [id number] : 1975 Acct:[id number] Age/Sex: 49 / F Adm Date: 12/02/24 Loc: OR Room: Type: [facility] Attending Dr: Referral Self Ordering Provider: SELF,REFERRAL Date of Service: 12/02/24 Procedure(s): MM screening mammo BI w/CAD Accession Number(s): ([id number]) MM/MM screening mammo BI w/CAD: SCREENING Copies [...] Saleh M.D. 12/02/2024 10:59 AM Dictation Location: [facility] Dictated By: Donell Saleh II, MD 12/02/24 1054 Signed By: 12/02/24 1059 Normal [facility] Mammography reportOrdered By : Donell Saleh on 12-02-2024 Diagnostic imaging study [facility] [address] [place] [address] [place] [address] Mammography Report Signed Patient: Yokasta Zheng MR#: [id number] : 1975 Acct:[id number] Age/Sex: 49 / F Adm Date: 5 Loc: OR Room: Type: [facility] Attending Dr: Referral Self Ordering Provider: SELF,REFERRAL Date of Service: 12/02/24 Procedure(s): MM screening mammo BI w/CAD Accession Number(s): ([id number]) MM/MM screening mammo BI w/CAD: SCREENING Copies [...] Saleh M.D. 12/02/2024 10:59 AM Dictation Location: [facility] Dictated By: Donell Saleh II, MD 12/02/24 105 Signed By: 12/02/24 1051 [facility] Work Phone: Ambulatory Visit Summaryon 0 11-18-2024 Ambulatory Visit Summary Ambulatory Visi t Summary YOKASTA ZHENG :1975 Visit Date:11/18/2024 Ambulatory Visit Instructions Your Diagnosis Bladder tumor Your Care Team Attending Physician - JESSICA MORENO, Doug Manuel Primary Care Physician - Al Bowie MD This Is Your Medications List Contact prescribing [...] Following Appointments Follow Up with JESSICA MORENO, Doug Manuel, URL When: Only if needed Where: [facility] [address] [place] [phone] Medications What How Much When Instructions Unchanged [...] uterus (cer (more content not included)... Normal [facility] Urology Office/Clinic Noteon 11-18-2024 Urology Office/Clinic [...] Only if needed [facility] [address], [place] [phone] Additional Instructions: Patient Education Cancer Screening for Females Tanesha Machuca, personally scribed for Dr. Mcdaniel on 11/18/2024 08:02:46. Electronically signed by key Ferris Documentation recorded by the scribe, Tanesha Ferris, accurately reflects the services(s) I performed and [...] Not Give (more content not included)... Normal [facility] Comment on above: Result Comment: Elec tronically Signed By: Doug MCDANIEL MD\.br\Date and Time Signed: 11/18/24 08:04 EDT\.br\Electronically Co-Signed By: Tanesha Ferris\.br\Date and Time Co-Signed: 11/18/24 08:03 EDT [place] [facility] [facility] [place] [facility] October 09, 2024 YOKASTA [place]HENG [address] [place] [address] : 1975 Dear Yokasta Zheng, [facility], Dr. Doug Mcdaniel office, has been trying to reach you concerning your annual bladder scope (cystoscopy). You are due in October 2024. Please call the office so we can coordinate this procedure with you and continue to provide you with quality care. Sincerely, Doug Mcdaniel M.D., F.A.C.S. [facility] [address] [place], [place] [address] , option #3 Normal [facility] XR shoulder RT min 2V*on XR shoulder RT min 2V* [facility] [address] [place] [address] XRay Report Signed Patient: Yokasta Zheng MR#: [id number] : 1975 Acct:[id number] Age/Sex: 48 / F ADM Date: 12/24/23 [place] [facility] [place]: Type: [facility] Attending Dr: Janna Berger MD Copies [...] Srinivas Goodwin M.D.12/24/2023 1:41 PM Dictation Location: [place] [address] Transcribed By: [facility] 12/24/23 1341 Dictated By: Srinivas Goodwin DO 12/24/23 1339 Signed By: 12/24/23 1341 Normal [facility] Alanine aminotransferase [En zymatic activity/volume] in Serum or PlasmaOrdered By: Janna Berger on 11-27-2023 ALT [Catalytic activity/Vol] 9 U/L [facility] Albumin [Mass/volume] in Ser um or Plasma by Bromocresol green (BCG) dye binding methoOrdered By: Janna Berger on 11-27-2023 Albumin BCG dye [Mass/Vol] 4.0 g/dL 3.5-5.7 [facility] Alkaline phosphatase [Enzyma tic activity/volume] in Serum or PlasmaOrdered By: Janna Berger on 11-27-2023 ALP [Catalytic activity/Vol] 65 U/L 34-104 [facility] Aspartate aminotransferase [ Enzymatic activity/volume] in Serum or PlasmaOrdered By: Janna Berger on 11-27-2023 AST [Catalytic activity/Vol] 12 U/L Low 13-39 [facility] Basophils Auto (Bld) [#/Vol] Ordered By: Janna Berger on 11-27-2023 Basophils (Bld) [#/Vol] 0.0 10*3/uL 0.0-0.2 [facility] Basophils/100 WBC Auto (Bld) Ordered By: Janna Berger on 11-27-2023 Basophils/100 WBC (Bld) 0.4 % . [facility] Bilirubin.total [Mass/volume ] in Serum or PlasmaOrdered By: Janna Berger on 11-27-2023 Bilirubin [Mass/Vol] 0.5 mg/dL 0.3-1.0 [facility] Calcium [Mass/volume] in Ser um or PlasmaOrdered By: Janna Berger on 11-27-2023 Calcium [Mass/Vol] 8.7 mg/dL 8.6-10.3 [facility] Carbon dioxide, total [Moles /volume] in Serum or PlasmaOrdered By: Janna Berger on 11-27-2023 CO2 [Moles/Vol] 27.1 mmol/L 21.0-31.0 [facility] Chloride [Moles/volume] in S rhonda or PlasmaOrdered By: Janna Berger on 11-27-2023 Chloride [Moles/Vol] 109 mmol/L High 98-107 [facility] Creatinine [Mass/volume] in Serum or PlasmaOrdered By: Janna Berger on 11-27-2023 Creatinine [Mass/Vol] 0.87 mg/dL 0.60-1.20 [facility] Eosinophils Auto (Bld) [#/Vo l]Ordered By: Janna Berger on 11-27-2023 Eosinophils (Bld) [#/Vol] 0.2 10*3/uL 0.0-0.45 [facility] Eosinophils/100 WBC Auto (Bl d)Ordered By: Janna Berger on 11-27-2023 Eosinophils/100 WBC (Bld) 1.8 % . [facility] Erythrocyte distribution wid th Auto (RBC) [Ratio]Ordered By: Janna Berger on 11-27-2023 Erythrocyte distribution width (RBC) [Ratio] 13.0 % 11.9-15.3 [facility] Globulin Calc (S) [Mass/Vol] Ordered By: Janna Berger on 11-27-2023 Globulin (S) [Mass/Vol] 2.3 g/dL [facility] Glucose [Mass/volume] in Ser um or PlasmaOrdered By: Janna Berger on 11-27-2023 Glucose [Mass/Vol] 74 mg/dL 70-100 [facility] Hematocrit Auto (Bld) [Volum e fraction]Ordered By: Janna Berger on 11-27-2023 Hematocrit (Bld) [Volume fraction] 42.1 % 34.0-46.4 [facility] Hemoglobin [Mass/volume] in BloodOrdered By: Janna Berger on 11-27-2023 Hemoglobin (Bld) [Mass/Vol] 13.8 g/dL 11.8-15.4 [facility] Leukocytes [#/volume] correc yumiko for nucleated erythrocytes in Blood by Automated counOrdered By: Janna Berger on 11-27-2023 WBC corrected for nucl RBC Auto (Bld) [#/Vol] 8.4 10*3/uL 3.8-11.6 [facility] Lymphocytes Auto (Bld) [#/Vo l]Ordered By: Janna Berger on 11-27-2023 Lymphocytes (Bld) [#/Vol] 2.3 10*3/uL 1.00-4.8 [facility] Lymphocytes/100 WBC Auto (Bl d)Ordered By: Janna Berger on 11-27-2023 Lymphocytes/100 WBC (Bld) 27.8 % . [facility] MCH Auto (RBC) [Entitic mass ]Ordered By: Janna Berger on 11-27-2023 MCH (RBC) [Entitic mass] 29.0 pg 24.7-34.3 [facility] MCHC Auto (RBC) [Mass/Vol]Or dered By: Janna Berger on 11-27-2023 MCHC (RBC) [Mass/Vol] 32.9 g/dL 32.0-35.0 [facility] MCV Auto (RBC) [Entitic vol] Ordered By: Janna Berger on 11-27-2023 MCV (RBC) [Entitic vol] 88.2 fL 80-100 [facility] Monocytes Auto (Bld) [#/Vol] Ordered By: Janna Berger on 11-27-2023 Monocytes (Bld) [#/Vol] 0.5 10*3/uL 0.0-0.8 [facility] Monocytes/100 WBC Auto (Bld) Ordered By: Janna Berger on 11-27-2023 Monocytes/100 WBC (Bld) 5.5 % . [facility] Neutrophils Auto (Bld) [#/Vo l]Ordered By: Janna Berger on 11-27-2023 Neutrophils (Bld) [#/Vol] 5.4 10*3/uL 1.8-7.7 [facility] Neutrophils/100 WBC Auto (Bl d)Ordered By: Janna Berger on 11-27-2023 Neutrophils/100 WBC (Bld) 64.5 % . [facility] No Panel InformationOrdered By: Janna Berger on 11-27-2023 Estimated GFR (CKD-EPI) > 60.0 mL/Min [facility] Creatinine Clearance (Chem N/A [facility] Nucleated erythrocytes [Pres ence] in Blood by Automated countOrdered By: Janna Berger on 11-27-2023 Nucleated RBC Auto Ql (Bld) 0.1 /100{WBC} 0-0.5 [facility] Platelet mean volume Auto (B ld) [Entitic vol]Ordered By: Janna Berger on 11-27-2023 Platelet mean volume (Bld) [Entitic vol] 9.2 fL 6.3-10.7 [facility] Platelets Auto (Bld) [#/Vol] Ordered By: Janna Berger on 11-27-2023 Platelets (Bld) [#/Vol] 218 10*3/uL 150-450 [facility] Potassium [Moles/volume] in Serum or PlasmaOrdered By: Janna Berger on 11-27-2023 Potassium [Moles/Vol] 4.3 mmol/L 3.5-5.1 [facility] Protein [Mass/volume] in Ser um or PlasmaOrdered By: Janna Berger on 11-27-2023 Protein [Mass/Vol] 6.3 g/dL Low 6.4-8.9 [facility] RBC Auto (Bld) [#/Vol]Ordere d By: Janna Berger on 11-27-2023 RBC (Bld) [#/Vol] 4.77 10*6/uL 3.60-5.00 [facility] Serum or plasma albumin/glob ulin mass ratioOrdered By: Janna Berger on 11-27-2023 Albumin/Globulin [Mass ratio] 1.7 {ratio} [facility] Serum or plasma anion gap de terminationOrdered By: Janna Berger on 11-27-2023 Anion gap [Moles/Vol] 10.2 mmol/L 6.0-15.0 [facility] Sodium [Moles/volume] in Ser um or PlasmaOrdered By: Janna Berger on 11-27-2023 Sodium [Moles/Vol] 142 mmol/L 136-145 [facility] Urea nitrogen [Mass/volume] in Serum or PlasmaOrdered By: Janna Berger on 11-27-2023 Urea nitrogen [Mass/Vol] 22 mg/dL 7-25 [facility] WBC Auto (Bld) [#/Vol]Ordere d By: Janna Berger on 11-27-2023 WBC (Bld) [#/Vol] 8.4 10*3/uL 3.8-11.6 [facility] PAP ACOG PANEL 2: 30 to 65on 10-05-2022 . . Normal [facility] Comment on above: Result Comment: Perf ormed at: WB Performed By: #### [id number] #### [facility] [address] [address] [address] Florecita Mohr Age Gdln ACOG Testing 30-65 Normal [facility] Comment on above: Performed By: #### [id number] #### [facility] [address] [place] [address] Dr. Florecita Mohr DIAGNOSIS: Comment Normal [facility] Comment on above: Result Comment: NEGA TIVE FOR INTRAEPITHELIAL LESION OR MALIGNANCY. Performed at: WB Performed By: #### [id number] #### [facility] [address] [place] [address] Dr. Florecita Mohr HPV Aptima Negative Normal Negative [facility] Comment on above: Result Comment: This nucleic acid amplification test detects fourteen high-risk HPV types (16,18,31,33,35,39,45,51,52,56,58,59,66,68) without differentiation. Performed at: =G Performed By: #### [id number] #### [facility] [address] [place] [address] Dr. Florecita Mohr HPV Genotype Reflex Comment Normal [facility] Comment on above: Result Comment: Crit eria not met, HPV Genotype not performed. Performed at: WB Performed By: #### [id number] #### [facility] [address] [place] [address] Dr. Florecita Mohr Methodology: Comment Normal [facility] Comment on above: Result Comment: This liquid based ThinPrep(R) pap test was screened with the use of an image guided system. Performed at: WB Performed By: #### [id number] #### [facility] [address] [place] [address] Dr. Florecita Mohr Note: Comment Normal [facility] Comment on above: Result Comment: The Pap smear is a screening test designed to aid in the detection of premalignant and malignant conditions of the uterine cervix. It is not a diagnostic procedure and should not be used as the sole means of detecting cervical cancer. Both false-positive and false-negative reports do occur. . Performed at: WB Performed By: #### [id number] #### [facility] [address] [place] [address] Dr. Florecita Mohr Performed by: Comment Normal [facility] Comment on above: Result Comment: Kaykay Dugan, [employer] Dies Performed at: WB Performed By: #### [id number] #### [facility] [address] [place] [address] Dr. Florecita Mohr Specimen adequacy: Comment Normal [facility] Comment on above: Result Comment: Sati sfactory for evaluation. Endocervical and/or squamous metaplastic cells (endocervical component) are present. Areas of partially obscuring blood are present. Performed at: WB Performed By: #### [id number] #### [facility] [address] [place] [address] Dr. Florecita Mohr BUNon 09-28-2022 Urea nitrogen [Mass/Vol] 10.0 mg/dL Normal 7.0-18.0 [facility] Comment on above: Performed By: #### C HUNG, BUN #### [facility] [address] [place] [address] Dr. Florecita Mohr CBC AUTO DIFFon 09-28-2022 BASO # 0.0 103/ul Normal 0.0-0.1 [facility] Comment on above: Performed By: #### C HUNG, BUN #### [facility] [address] [place] [address] Dr. Florecita Mohr Basophils/100 WBC (Bld) 0.1 % Critically low 0.2-2.0 [facility] Comment on above: Performed By: #### C HUNG, BUN #### [facility] [address] [place] [address] Dr. Florecita Mohr EO # 0.0 103/ul Normal 0.0-0.7 [facility] Comment on above: Performed By: #### C HUNG, BUN #### [facility] [address] [place] [address] Dr. Florecita Mohr Eosinophils/100 WBC (Bld) 0.1 % Critically low 0.9-7.0 [facility] Comment on above: Performed By: #### C HUNG, BUN #### [facility] [address] [place] [address] Dr. Florecita Mohr Erythrocyte distribution width (RBC) [Ratio] 12.5 % Normal 11.0-15.0 [facility] Comment on above: Performed By: #### C HUNG, BUN #### [facility] [address] [place] [address] Dr. Florecita Mohr Hematocrit (Bld) [Volume fraction] 37.7 % Normal 36.0-48.0 [facility] Comment on above: Performed By: #### C HUNG, BUN #### [facility] [address] [place] [address] Dr. Florecita Mohr Hemoglobin (Bld) [Mass/Vol] 12.2 g/dL Normal 12.0-16.0 [facility] Comment on above: Performed By: #### C HUNG, BUN #### [facility] [address] [place] [address] Dr. Florecita Mohr IG # 0.10 10e3/ul Critically high 0.00-0.03 [facility] Comment on above: Performed By: #### C HUNG, BUN #### [facility] [address] [place] [address] Dr. Florecita Mohr IG % 0.7 % Critically high 0.0-0.5 [facility] Comment on above: Performed By: #### C HUNG, BUN #### [facility] [address] [place] [address] Dr. Florecita Mohr LYMPH # 1.0 103/ul Critically low 1.2-3.8 [facility] Comment on above: Performed By: #### C UHNG, BUN #### [facility] [address] [place] [address] Dr. Florecita Mohr Lymphocytes/100 WBC (Bld) 7.2 % Critically low 20.5-60.0 [facility] Comment on above: Performed By: #### C HUNG, BUN #### [facility] [address] [place] [address] Dr. Florecita Mohr MANUAL DIFF REQ NO Normal [facility] Comment on above: Performed By: #### C HUNG, BUN #### [facility] [address] [place] [address] Dr. Florecita Mohr MCH (RBC) [Entitic mass] 29.4 pg Normal 26.7-34.0 [facility] Comment on above: Performed By: #### C HUNG, BUN #### [facility] [address] [place] [address] Dr. Florecita Mohr MCHC (RBC) [Mass/Vol] 32.4 g/dL Normal 29.9-35.2 [facility] Comment on above: Performed By: #### C HUNG, BUN #### [facility] [address] [place] [address] Dr. Florecita Mohr MCV (RBC) [Entitic vol] 90.8 fL Normal 81.0-99.0 [facility] Comment on above: Performed By: #### C HUNG, BUN #### [facility] [address] [place] [address] Dr. Florecita Mohr MONO # 1.0 103/ul Critically high 0.3-0.8 [facility] Comment on above: Performed By: #### C HUNG, BUN #### [facility] [address] [place] [address] Dr. Florecita Mohr Monocytes/100 WBC (Bld) 7.3 % Normal 1.7-12.0 [facility] Comment on above: Performed By: #### C HUNG, BUN #### [facility] [address] [place] [address] Dr. Florecita Mohr NEUT # 12.0 103/ul Critically high 1.4-6.5 [facility] Comment on above: Performed By: #### C HUNG, BUN #### [facility] [address] [place] [address] Dr. Florecita Mohr Neutrophils/100 WBC (Bld) 84.6 % Critically high 43.0-75.0 [facility] Comment on above: Performed By: #### C HUNG, BUN #### [facility] [address] [place] [address] Dr. Florecita Mohr Platelet mean volume (Bld) [Entitic vol] 10.7 fL Normal 9.5-13.5 [facility] Comment on above: Performed By: #### C HUNG, BUN #### [facility] [address] [address] [address] Florecita Mohr PLT 200 103/ul Normal 150-450 [facility] Comment on above: Performed By: #### C HUNG, BUN #### [facility] [address] [place] [address] Dr. Florecita Mohr RBC 4.15 106/ul Critically low 4.20-5.40 [facility] Comment on above: Performed By: #### C HUNG, BUN #### [facility] [address] [place] [address] Dr. Florecita Mohr WBC 14.2 103/ul Critically high 4.0-11.0 [facility] Comment on above: Performed By: #### C HUNG, BUN #### [facility] [address] [place] [address] Dr. Florecita Mohr CREATININEon 09-28-2022 Creatinine [Mass/Vol] 0.86 mg/dL Normal 0.55-1.02 [facility] Comment on above: Performed By: #### C HUNG, BUN #### [facility] [address] [place] [address] Dr. Florecita Mohr EGFR-AF BULGARIAN >60 Normal >=60 [facility] Comment on above: Performed By: #### C HUNG, BUN #### [facility] [address] [place] [address] Dr. Florecita Mohr EGFR-NON AF BULGARIAN >60 Normal >=60 [facility] Comment on above: Performed By: #### C HUNG, BUN #### [facility] [address] [place] [address] Dr. Florecita Mohr PREG QUANT HCGon 09-27-2022 HCG QUANT <1 Normal [facility] Comment on above: Performed By: #### P REGQNT #### [facility] [address] [place] [address] Dr. Florecita Mohr HCG RANGE SEE BELOW Normal [facility] Comment on above: Result Comment: 5-50 0.2-1 WEEK 50-500 1-2 WEEKS 100-5,000 2-3 WEEKS 500-10,000 3-4 WEEKS 1,000-50,000 4-5 WEEKS 10,000-100,000 5-6 WEEKS 15,000-200,000 6-8 WEEKS 10,000-100,000 2-3 MONTHS Performed By: #### P REGQNT #### [facility] [address] [place] [address] Dr. Florecita Mohr TYPE AND SCREENon 09-24-2022 TYPE AND SCREEN Negative Normal [facility] Comment on above: Performed By: #### C HUNG, BUN #### [facility] [address] [place] [address] Dr. Florecita Mohr CBC AUTO DIFFon 09-13-2022 BASO # 0.1 103/ul Normal 0.0-0.1 [facility] Comment on above: Performed By: #### C HUNG, BUN #### [facility] [address] [place] [address] Dr. Florecita Mohr Basophils/100 WBC (Bld) 0.6 % Normal 0.2-2.0 [facility] Comment on above: Performed By: #### C HUNG, BUN #### [facility] [address] [place] [address] Dr. Florecita Mohr EO # 0.2 103/ul Normal 0.0-0.7 [facility] Comment on above: Performed By: #### C HUNG, BUN #### [facility] [address] [place] [address] Dr. Florecita Mohr Eosinophils/100 WBC (Bld) 2.1 % Normal 0.9-7.0 [facility] Comment on above: Performed By: #### C HUNG, BUN #### [facility] [address] [place] [address] Dr. Florecita Mohr Erythrocyte distribution width (RBC) [Ratio] 12.5 % Normal 11.0-15.0 [facility] Comment on above: Performed By: #### C HUNG, BUN #### [facility] [address] [place] [address] Dr. Florecita Mohr Hematocrit (Bld) [Volume fraction] 41.7 % Normal 36.0-48.0 [facility] Comment on above: Performed By: #### C HUNG, BUN #### [facility] [address] [place] [address] Dr. Florecita Mohr Hemoglobin (Bld) [Mass/Vol] 13.4 g/dL Normal 12.0-16.0 [facility] Comment on above: Performed By: #### C HUNG, BUN #### [facility] [address] [place] [address] Dr. Florecita Mohr IG # 0.02 10e3/ul Normal 0.00-0.03 [facility] Comment on above: Performed By: #### C HUNG, BUN #### [facility] [address] [place] [address] Dr. Florecita Mohr IG % 0.2 % Normal 0.0-0.5 [facility] Comment on above: Performed By: #### C HUNG, BUN #### [facility] [address] [place] [address] Dr. Florecita Mohr LYMPH # 2.3 103/ul Normal 1.2-3.8 [facility] Comment on above: Performed By: #### C HUNG, BUN #### [facility] [address] [place] [address] Dr. Florecita Mohr Lymphocytes/100 WBC (Bld) 26.7 % Normal 20.5-60.0 [facility] Comment on above: Performed By: #### C HUNG, BUN #### [facility] [address] [place] [address] Dr. Florecita Mohr MANUAL DIFF REQ NO Normal [facility] Comment on above: Performed By: #### C HUNG, BUN #### [facility] [address] [place] [address] Dr. Florecita Mohr MCH (RBC) [Entitic mass] 29.2 pg Normal 26.7-34.0 [facility] Comment on above: Performed By: #### C HUNG, BUN #### [facility] [address] [place] [address] Dr. Florecita Mohr MCHC (RBC) [Mass/Vol] 32.1 g/dL Normal 29.9-35.2 [facility] Comment on above: Performed By: #### C HUNG, BUN #### [facility] [address] [place] [address] Dr. Florecita Mohr MCV (RBC) [Entitic vol] 90.8 fL Normal 81.0-99.0 [facility] Comment on above: Performed By: #### C HUNG, BUN #### [facility] [address] [place] [address] Dr. Florecita Mohr MONO # 0.7 103/ul Normal 0.3-0.8 [facility] Comment on above: Performed By: #### C HUNG, BUN #### [facility] [address] [place] [address] Dr. Florecita Mohr Monocytes/100 WBC (Bld) 8.2 % Normal 1.7-12.0 [facility] Comment on above: Performed By: #### C HUNG, BUN #### [facility] [address] [place] [address] Dr. Florecita Mohr NEUT # 5.4 103/ul Normal 1.4-6.5 [facility] Comment on above: Performed By: #### C HUNG, BUN #### [facility] [address] [place] [address] Dr. Florecita Mohr Neutrophils/100 WBC (Bld) 62.2 % Normal 43.0-75.0 [facility] Comment on above: Performed By: #### C HUNG, BUN #### [facility] [address] [place] [address] Dr. Florecita Mohr Platelet mean volume (Bld) [Entitic vol] 10.2 fL Normal 9.5-13.5 [facility] Comment on above: Performed By: #### C HUNG, BUN #### [facility] [address] [place] [address] Dr. Florecita Mohr PLT 211 103/ul Normal 150-450 [facility] Comment on above: Performed By: #### C HUNG, BUN #### [facility] [address] [place] [address] Dr. Florecita Mohr RBC 4.59 106/ul Normal 4.20-5.40 [facility] Comment on above: Performed By: #### C HUNG, BUN #### [facility] [address] [place] [address] Dr. Florecita Mohr WBC 8.6 103/ul Normal 4.0-11.0 [facility] Comment on above: Performed By: #### C HUNG BUN #### [facility] [address] [place] [address] Dr. Florecita Mohr LIVER PROFILEon 09-13-2022 Albumin [Mass/Vol] 3.4 g/dL Normal 3.4-5.0 [facility] Comment on above: Performed By: #### Jaime PERSAUD BUN #### [facility] [address] [place] [address] Dr. Florecita Mohr Albumin/Globulin [Mass ratio] 1.0 {ratio} Normal [facility] Comment on above: Performed By: #### Jaime PERSAUD, BUN #### [facility] [address] [place] [address] Dr. Florecita Mohr ALP [Catalytic activity/Vol] 69 U/L Normal 46-116 [facility] Comment on above: Performed By: #### Jaime PERSAUD, BUN #### [facility] [address] [place] [address] Dr. Florecita Mohr ALT [Catalytic activity/Vol] 18 U/L Normal 14-59 [facility] Comment on above: Performed By: #### Jaime PERSAUD, BUN #### [facility] [address] [place] [address] Dr. Florecita Mohr AST [Catalytic activity/Vol] 12 U/L Critically low 15-37 [facility] Comment on above: Performed By: #### C HUNG, BUN #### [facility] [address] [place] [address] Dr. Florecita Mohr BILI, CONJUGATED 0.1 mg/dL Normal 0.0-0.2 [facility] Comment on above: Performed By: #### Jaime PERSAUD, BUN #### [facility] [address] [place], [place] [id number] Dr. Florecita Mohr Bilirubin [Mass/Vol] 0.6 mg/dL Normal 0.2-1.0 [facility] Comment on above: Performed By: #### C HUNG, BUN #### [facility] [address] [place] [address] Dr. Florecita Mohr Globulin (S) [Mass/Vol] 3.5 g/dL Normal [facility] [place] Comment on above: Performed By: #### C HUNG, BUN #### [facility] [address] [place] [address] Dr. Florecita Mohr Protein [Mass/Vol] 6.9 g/dL Normal 6.4-8.2 [facility] Comment on above: Performed By: #### C HUNG, BUN #### [facility] [address] [place] [address] Dr. Florecita Mohr PROF CHEM 8 (BAS METB)on Anion gap [Moles/Vol] 10.3 mmol/L Normal [facility] Comment on above: Performed By: #### C HUNG, BUN #### [facility] [address] [place] [address] Dr. Florecita Mohr Calcium [Mass/Vol] 9.5 mg/dL Normal 8.5-10.1 [facility] Comment on above: Performed By: #### C HUNG, BUN #### [facility] [address] [place] [address] Dr. Florecita Mohr Chloride [Moles/Vol] 107 mmol/L Normal 98-107 [facility] Comment on above: Performed By: #### C HUNG, BUN #### [facility] [address] [place] [address] Dr. Florecita Mohr CO2 [Moles/Vol] 29.4 mmol/L Normal 21.0-32.0 [facility] Comment on above: Performed By: #### C HUNG, BUN #### [facility] [address] [place] [address] Dr. Florecita Mohr Creatinine [Mass/Vol] 0.83 mg/dL Normal 0.55-1.02 [facility] Comment on above: Performed By: #### C HUNG, BUN #### [facility] [address] [address] [address] Florecita Mohr EGFR-AF BULGARIAN >60 Normal >=60 [facility] Comment on above: Performed By: #### C HUNG, BUN #### [facility] [address] [address] [address] Florecita Mohr EGFR-NON AF BULGARIAN >60 Normal >=60 [facility] Comment on above: Performed By: #### C HUNG, BUN #### [facility] [address] [address] [address] Florecita Mohr Glucose [Mass/Vol] 87 mg/dL Normal 74-106 [facility] Comment on above: Performed By: #### C HUNG, BUN #### [facility] [address] [address] [address] Florecita Mohr Potassium [Moles/Vol] 4.7 mmol/L Normal 3.5-5.1 [facility] Comment on above: Performed By: #### C HUNG, BUN #### [facility] [address] [address] [address] Florecita Mohr Sodium [Moles/Vol] 142 mmol/L Normal 136-145 [facility] Comment on above: Performed By: #### C HUNG, BUN #### [facility] [address] [address] [address] Florecita Mohr Urea nitrogen [Mass/Vol] 15.0 mg/dL Normal 7.0-18.0 [facility] Comment on above: Performed By: #### C HUNG, BUN #### [facility] [address] [address] [address] Florecita Mohr Urea nitrogen/Creatinine [Mass ratio] 18.1 mg/mg Normal [facility] Comment on above: Performed By: #### C HUNG, BUN #### [facility] [address] [address] [address] Florecita Mohr PROTIMEon 09-13-2022 INR Coag (PPP) [Relative time] 0.96 {INR} Normal [facility] Comment on above: Performed By: #### P T, PTT #### [facility] [address] [place] [address] Dr. Florecita Mohr INR GUIDELINES SEE BELOW Normal [facility] Comment on above: Result Comment: JUNE RED INR: 2.0 - 3.0 CONDITIONS NOT LISTED BELOW 2.5 - 3.5 FOR PROSTHETIC HEART VALVE REPLACEMENT 2.5 - 3.5 RECURRENT THROMBOSIS Performed By: #### P T, PTT #### [facility] [address] [place] [address] Dr. Florecita Mohr PT Coag (PPP) [Time] 10.2 s Normal 9.0-11.6 [facility] Comment on above: Performed By: #### P T, PTT #### [facility] [address] [place] [address] Dr. Florecita Mohr PTTon 09-13-2022 aPTT Coag (Bld) [Time] 28.0 s Normal 22.3-36.2 [facility] Comment on above: Performed By: #### P T, PTT #### [facility] [address] [place] [address] Dr. Florecita Mohr CBC AUTO DIFFon 08-27-2022 BASO # 0.1 103/ul Normal 0.0-0.1 [facility] Comment on above: Performed By: #### C BC #### [facility] [address] [place] [address] Dr. Florecita Mohr Basophils/100 WBC (Bld) 0.4 % Normal 0.2-2.0 [facility] Comment on above: Performed By: #### C BC #### [facility] [address] [place] [address] Dr. Florecita Mohr EO # 0.2 103/ul Normal 0.0-0.7 [facility] Comment on above: Performed By: #### C BC #### [facility] [address] [place] [address] Dr. Florecita Mohr Eosinophils/100 WBC (Bld) 1.5 % Normal 0.9-7.0 [facility] Comment on above: Performed By: #### C BC #### [facility] [address] [address] [address] Florecita Mohr Erythrocyte distribution width (RBC) [Ratio] 12.5 % Normal 11.0-15.0 [facility] Comment on above: Performed By: #### C BC #### [facility] [address] [address] [address] Florecita Mohr Hematocrit (Bld) [Volume fraction] 39.9 % Normal 36.0-48.0 [facility] Comment on above: Performed By: #### C BC #### [facility] [address] [address] [address] Florecita Mohr Hemoglobin (Bld) [Mass/Vol] 12.9 g/dL Normal 12.0-16.0 [facility] Comment on above: Performed By: #### C BC #### [facility] [address] [place] [address] Dr. Florecita Mohr IG # 0.06 10e3/ul Critically high 0.00-0.03 [facility] Comment on above: Performed By: #### C BC #### [facility] [address] [place] [address] Dr. Florecita Mohr IG % 0.5 % Normal 0.0-0.5 [facility] Comment on above: Performed By: #### C BC #### [facility] [address] [place] [address] Dr. Florecita Mohr LYMPH # 2.5 103/ul Normal 1.2-3.8 [facility] Comment on above: Performed By: #### C BC #### [facility] [address] [place] [address] Dr. Florecita Mohr Lymphocytes/100 WBC (Bld) 20.8 % Normal 20.5-60.0 [facility] Comment on above: Performed By: #### C BC #### [facility] [address] [place] [address] Dr. Florecita Mohr MANUAL DIFF REQ NO Normal [facility] Comment on above: Performed By: #### C BC #### [facility] [address] [address] [address] Florecita Mohr MCH (RBC) [Entitic mass] 29.3 pg Normal 26.7-34.0 [facility] Comment on above: Performed By: #### C BC #### [facility] [address] [place] [address] Dr. Florecita Mohr MCHC (RBC) [Mass/Vol] 32.3 g/dL Normal 29.9-35.2 [facility] Comment on above: Performed By: #### C BC #### [facility] [address] [place] [address] Dr. Florecita Mohr MCV (RBC) [Entitic vol] 90.7 fL Normal 81.0-99.0 [facility] Comment on above: Performed By: #### C BC #### [facility] [address] [place] [address] Dr. Florecita Mohr MONO # 1.1 103/ul Critically high 0.3-0.8 [facility] Comment on above: Performed By: #### C BC #### [facility] [address] [place] [address] Dr. Florecita Mohr Monocytes/100 WBC (Bld) 9.0 % Normal 1.7-12.0 [facility] Comment on above: Performed By: #### C BC #### [facility] [address] [place] [address] Dr. Florecita Mohr NEUT # 8.0 103/ul Critically high 1.4-6.5 [facility] Comment on above: Performed By: #### C BC #### [facility] [address] [place] [address] Dr. Florecita Mohr Neutrophils/100 WBC (Bld) 67.8 % Normal 43.0-75.0 [facility] Comment on above: Performed By: #### C BC #### [facility] [address] [place] [address] Dr. Florecita Mohr Platelet mean volume (Bld) [Entitic vol] 10.3 fL Normal 9.5-13.5 [facility] Comment on above: Performed By: #### C BC #### [facility] [address] [address] [address] Florecita Mohr PLT 197 103/ul Normal 150-450 [facility] Comment on above: Performed By: #### C BC #### [facility] [address] [address] [address] Florecita Mohr RBC 4.40 106/ul Normal 4.20-5.40 [facility] Comment on above: Performed By: #### C BC #### [facility] [address] [address] [address] Florecita Mohr WBC 11.8 103/ul Critically high 4.0-11.0 [facility] Comment on above: Performed By: #### C BC #### [facility] [address] [place] [address] Dr. Florecita Mohr FREE T4on 08-27-2022 Free T4 [Mass/Vol] 0.85 ng/dL Normal 0.76-1.46 [facility] Comment on above: Performed By: #### F T4 #### [facility] [address] [place] [address] Dr. Florecita Mohr GLYCOHEMOGLOBIN A1Con 2022 ADA RECOMMENDATION SEE BELOW Normal [facility] Comment on above: Result Comment: ADA RECOMMENDED LIMIT 4.0 - 6.0 ADA THERAPEUTIC TARGET < 7.0 ACTION SUGGESTED > 7.0 Performed By: #### C HUNG, BUN #### [facility] [address] [place] [address] Dr. Florecita Mohr Glucose [Mass/Vol] 103 mg/dL Normal [facility] Comment on above: Performed By: #### C HUNG, BUN #### [facility] [address] [address] [address] Florecita Mohr HbA1c (Bld) [Mass fraction] 5.2 % Normal 4.5-6.2 [facility] Comment on above: Performed By: #### C HUNG, BUN #### [facility] [facility] [address] [address] [address] Florecita Mohr MG MAMM SCREEN 3D MELQUIADES CADon 08-27-2022 MG MAMM SCREEN 3D MELQUIADES CAD Patient: YOKASTA ZHENG Exam Date: 08/27/2022 : 1975 Gender:F Ordering : DR FAREED RODRIGES . Admission #: [id number] Family : Order #: [id number] CLICK HERE TO VIEW EXAM RADIOLOGY REPORT [...] Treatments None Family Cancers None LOCATION: [facility] BREAST COMPOSITION: Heterogeneously dense,which may obscure small [...] Sheldon M.D. on 08/27/2022 at 15:02 Normal [facility] PROTIMEon 08-27-2022 INR Coag (PPP) [Relative time] {INR} Normal [facility] Comment on above: Performed By: #### P T, PTT #### [facility] [address] [address] [address] Florecita Mohr INR GUIDELINES SEE BELOW Normal [facility] Comment on above: Result Comment: JUNE RED INR: 2.0 - 3.0 CONDITIONS NOT LISTED BELOW 2.5 - 3.5 FOR PROSTHETIC HEART VALVE REPLACEMENT 2.5 - 3.5 RECURRENT THROMBOSIS Performed By: #### P T, PTT #### [facility] [address] [address] [address] Florecita Mohr PT Coag (PPP) [Time] 9.8 s Normal 9.0-11.6 [facility] Comment on above: Performed By: #### P T, PTT #### [facility] [address] [address] [address] Florecita Mohr PTTon 08-27-2022 aPTT Coag (Bld) [Time] 26.5 s Normal 22.3-36.2 [facility] Comment on above: Performed By: #### P T, PTT #### [facility] [address] [address] [address] Florecita Mohr TSHon 08-27-2022 TSH 1.725 uIU/mL Normal 0.358-3.740 [facility] Comment on above: Performed By: #### C HUNG, BUN #### [facility] [address] [address] [address] Florecita Mohr US PELVIS TRANSVAGon 023 [...] by: LANE SHELDON Date: 2022-08-27 12:39 Normal [facility] Vital Signs Date Time Vital Sign Value Performing Clinician Facility 12-09-2024 13:14-0400 Body height 165.1 cm Eduarda CISNEROS Work Phone: [facility] 12-09-2024 13:14-0400 Body mass index (BMI) [Ratio] 40.6 kg/m2 Eduarda Roann PA Work Phone: [facility] 12-09-2024 13:14-0400 Body weight 110.68 kg Eduarda Flanaganey PA Work Phone: [facility] 12-09-2024 13:14-0400 Diastolic blood pressure 78 mm[Hg] Eduarda Roann PA Work Phone: [facility] 12-09-2024 13:14-0400 Systolic blood pressure 124 mm[Hg] Eduarda Beverly PA Work Phone: [facility] 12-18-2023 11:15-0400 Diastolic blood pressure 97 mm[Hg] MD Al Bowie Work Phone: [facility] 12-18-2023 11:15-0400 Heart rate 55 /min MD Al Bowie Work Phone: [facility] 12-18-2023 11:15-0400 Respiratory rate 20 /min MD Al Bowie Work Phone: [facility] 12-18-2023 11:15-0400 SaO2% (BldA) [Mass fraction] 95 % MD Al Bowie Work Phone: [facility] 12-18-2023 11:15-0400 Systolic blood pressure 152 mm[Hg] MD Al Bowie Work Phone: [facility] 12-18-2023 09:13-0400 Body temperature 97.3 [degF] MD Al Bowie Work Phone: [facility] 12-18-2023 09:13-0400 Inhaled oxygen flow rate 6 L/min MD Al Bowie Work Phone: [facility] 12-18-2023 05:55-0400 Body height 165.1 cm MD Al Bowie Work Phone: [facility] 12-18-2023 05:55-0400 Body weight 102.05 kg MD Al Bowie Work Phone: [facility] 11-27-2023 09:50-0400 Body height 162.56 cm MD Al Bowie Work Phone: [facility] 11-27-2023 09:50-0400 Body weight 108.4 kg MD Al Bowie Work Phone: [facility] 11-27-2023 09:50-0400 Diastolic blood pressure 89 mm[Hg] MD Al Bowie Work Phone: [facility] 11-27-2023 09:50-0400 Heart rate 70 /min MD Al Bowie Work Phone: [facility] 11-27-2023 09:50-0400 Respiratory rate 18 /min MD Al Bowie Work Phone: [facility] 11-27-2023 09:50-0400 SaO2% (BldA) [Mass fraction] 98 % MD Al Bowie Work Phone: [facility] 11-27-2023 09:50-0400 Systolic blood pressure 139 mm[Hg] MD Al Bowie Work Phone: [facility] 07-29-2023 10:23-0500 Body height 165.1 cm [facility] 07-29-2023 10:23-0500 Body mass index (BMI) [Ratio] 37.3 kg/m2 [facility] 07-29-2023 10:23-0500 Body temperature 97.6 [degF] [facility] 07-29-2023 10:23-0500 Body weight 101.6 kg [facility] 07-29-2023 10:23-0500 Diastolic blood pressure 84 mm[Hg] [facility] 07-29-2023 10:23-0500 Heart rate 71 /min [facility] 07-29-2023 10:23-0500 Respiratory rate 16 /min [facility] 07-29-2023 10:23-0500 SaO2% (BldA) [Mass fraction] 98 % [facility] 07-29-2023 10:23-0500 Systolic blood pressure 124 mm[Hg] [facility] 05-09-2023 09:00-0500 Body height 165.1 cm Heavenly Pitt Other [employer] [facility] [employer] Other 10-26-2022 10:33-0400 Blood Pressure Location Doug MCDANIEL [facility] 10-26-2022 10:33-0400 Diastolic blood pressure 81 mm[Hg] Doug MCDANIEL [facility] 10-26-2022 10:33-0400 Heart rate 88 /min Doug MCDANIEL [facility] 10-26-2022 10:33-0400 Respiratory rate 16 /min Doug MCDANIEL [facility] 10-26-2022 10:33-0400 Systolic blood pressure 133 mm[Hg] Doug MCDANIEL [facility] 09-14-2021 11:00-0400 Body height 165.1 cm [employer] Other [employer] Other 09-14-2021 11:00-0400 Body mass index (BMI) [Ratio] 40.27 kg/m2 [employer] Other [employer] Other 09-14-2021 11:00-0400 Body temperature 97.8 [degF] [employer] Other [employer] Other 09-14-2021 11:00-0400 Body weight 109.77 kg Phillip Easterwood Other [employer] Other 09-14-2021 11:00-0400 Diastolic blood pressure 70 mm[Hg] Phillip Easterwood Other [employer] Other 09-14-2021 11:00-0400 Respiratory rate 20 /min Phillip Easterwood Other [employer] Other 09-14-2021 11:00-0400 SaO2% (BldA) [Mass fraction] 99 % Phillip Easterwood Other [employer] Other 09-14-2021 11:00-0400 Systolic blood pressure 118 mm[Hg] Phillip Easterwood Other [employer] Other 08-17-2021 11:00-0400 Body height 165.1 cm Phillip Darianerwood Other [employer] Other 08-17-2021 11:00-0400 Body mass index (BMI) [Ratio] 40.93 kg/m2 Phillip Easterwood Other [employer] Other 08-17-2021 11:00-0400 Body temperature 98 [degF] Phillip Easterwood Other [employer] Other 08-17-2021 11:00-0400 Body weight 111.59 kg Phillip Easterwood Other [employer] Other 08-17-2021 11:00-0400 Diastolic blood pressure 72 mm[Hg] Phillip Easterwood Other [employer] Other 08-17-2021 11:00-0400 Respiratory rate 20 /min Phillip Carlos Other [employer] Other 08-17-2021 11:00-0400 SaO2% (BldA) [Mass fraction] 99 % Phillip Carlos Other [employer] Other 08-17-2021 11:00-0400 Systolic blood pressure 124 mm[Hg] Phillip LujanWaitsup Other [employer] Other Encounters Encounter Date Encounter Type Care Provider Facility Start: 12-09-2024 End: 12-09-2024 Bamboo flowsheet Eduarda CISNEROS Work Phone: [facility] Start: 12-09-2024 End: 12-11-2024 Bamboo flowsheet Eduarda CISNEROS Work Phone: [facility] Start: 12-09-2024 End: 12-11-2024 Clinisync Result Encounter Eduarda CISNEROS Work Phone: [facility] External Department Unsolicited Start: 12-09-2024 End: 12-09-2024 Patient encounter procedure Eduarda CISNEROS Work Phone: [facility] Healthcare Start: 12-09-2024 End: 12-09-2024 Periodic preventive med est patient 40-64yrs Eduarda CISNEROS Work Phone: [facility] Comment on above: Well woman exam with routine gynecological exam; Breast cancer screening by mammogram; H/O: hysterectomy; Pelvic pain in female; Anxiety, generalized Start: 12-09-2024 End: 12-09-2024 ambulatory EDUARDA THAYER Not Available Start: 12-02-2024 End: 12-02-2024 Patient encounter procedure [facility] Work Phone: Start: 12-02-2024 End: 12-02-2024 ambulatory Al Bowie MD Work Phone: [facility] Work Phone: Start: 11-18-2024 End: 11-18-2024 ambulatory Doug MCDANIEL Facility: [facility] Start: 11-18-2024 End: 11-18-2024 Patient encounter procedure Doug MCDANIEL [facility] Start: 06-29-2024 End: 06-29-2024 ambulatory [facility] Work Phone: Start: 06-29-2024 End: 06-29-2024 Patient encounter procedure [facility] Work Phone: Start: 05-22-2024 End: 05-22-2024 Bamboo flowsheet Tonya Brink [facility] Start: 05-22-2024 End: 05-22-2024 Bamboo flowsheet Tonya Brink [facility] Start: 05-22-2024 End: 05-22-2024 ambulatory Tonya Brink [facility] Comment on above: Tear of right rotato r cuff, unspecified tear extent, unspecified whether traumatic (Primary Dx) Start: 05-18-2024 End: 05-18-2024 Telephone encounter Tonya Brink [facility] Comment on above: re: PT today Start: 05-15-2024 End: 05-15-2024 ambulatory Anujajamir Crisostomobley [facility] Comment on above: Tear of right rotato r cuff, unspecified tear extent, unspecified whether traumatic (Primary Dx) Start: 05-13-2024 End: 05-13-2024 Bamboo flowsheet Anuja Kelbley [facility] Start: 05-13-2024 End: 05-13-2024 Bamboo flowsheet Anuja Kelbley [facility] Start: 05-13-2024 End: 05-13-2024 ambulatory Anuja Kranthibley [facility] Comment on above: Tear of right rotato r cuff, unspecified tear extent, unspecified whether traumatic (Primary Dx) Start: 05-11-2024 End: 05-11-2024 Bamboo flowsheet Tonya Bass [facility] Start: 05-11-2024 End: 05-11-2024 Bamboo flowsheet Tonya Bass [facility] Start: 05-11-2024 End: 05-11-2024 ambulatory Tonya Bass [facility] Comment on above: Tear of right rotato r cuff, unspecified tear extent, unspecified whether traumatic (Primary Dx) Start: 05-08-2024 End: 05-08-2024 Bamboo flowsheet Tonya Bass [facility] Start: 05-08-2024 End: 05-08-2024 Bamboo flowsheet Tnoya Bass [facility] Start: 05-08-2024 End: 05-08-2024 ambulatory Tonya Bass [facility] Comment on above: Tear of right rotato r cuff, unspecified tear extent, unspecified whether traumatic (Primary Dx) Start: 05-06-2024 End: 05-06-2024 Bamboo flowsheet Anish Aragon [facility] Start: 05-06-2024 End: 05-06-2024 Bamboo flowsheet Anish Aragon [facility] Start: 05-06-2024 End: 05-06-2024 ambulatory Anish Aragon [facility] Comment on above: Tear [...] Start: 05-01-2024 End: 05-01-2024 ambulatory Tonya Bass [facility] Comment on above: Tear of right rotato r cuff, unspecified tear extent, unspecified whether traumatic (Primary Dx) Start: 05-01-2024 End: 05-01-2024 Bamboo flowsheet Tonya Bass [facility] Start: 05-01-2024 End: 05-01-2024 Bamboo flowsheet Tonya Bass [facility] Start: 04-29-2024 End: 04-29-2024 Bamboo flowsheet Anish Aragon [facility] Start: 04-29-2024 End: 04-29-2024 Bamboo flowsheet Anish Aragon [facility] Start: 04-29-2024 End: 04-29-2024 ambulatory Anish Aragon [facility] Comment on above: Tear of right rotato r cuff, unspecified tear extent, unspecified whether traumatic (Primary Dx) Start: 04-27-2024 End: 04-27-2024 ambulatory Anish Aragon [facility] Comment on above: Tear of right rotato r cuff, unspecified tear extent, unspecified whether traumatic (Primary Dx) Start: 04-22-2024 End: 04-22-2024 Bamboo flowsheet Tonya Bass [facility] Start: 04-22-2024 End: 04-22-2024 Bamboo flowsheet Tonya Bass [facility] Start: 04-22-2024 End: 04-22-2024 ambulatory Tonya Bass [facility] Comment on above: Tear of right rotato r cuff, unspecified tear extent, unspecified whether traumatic (Primary Dx) Start: 04-20-2024 End: 04-20-2024 Bamboo flowsheet Tonya Brink [facility] Start: 04-20-2024 End: 04-20-2024 Bamboo flowsheet Tonya Zhangink [facility] Start: 04-20-2024 End: 04-20-2024 ambulatory Tonya Bass [facility] Comment on above: Tear [...] Start: 04-15-2024 End: 04-15-2024 ambulatory Tonya Brink [facility] Comment on above: Tear of right rotato r cuff, unspecified tear extent, unspecified whether traumatic (Primary Dx) Start: 04-15-2024 End: 04-15-2024 Bamboo flowsheet Tonya Brink [facility] Start: 04-15-2024 End: 04-15-2024 Bamboo flowsheet Tonya Brink [facility] Start: 04-14-2024 End: 04-14-2024 ambulatory [facility] Work Phone: Start: 04-14-2024 End: 04-14-2024 Patient encounter procedure [facility] Work Phone: Start: 04-10-2024 End: 04-10-2024 Bamboo flowsheet Halley Thao PT [facility] Start: 04-10-2024 End: 04-10-2024 Bamboo flowsheet Halley Thao PT [facility] Start: 04-10-2024 End: 04-10-2024 ambulatory Halley Thao PT [facility] Comment on above: Tear of right rotato r cuff, unspecified tear extent, unspecified whether traumatic (Primary Dx) Start: 04-08-2024 End: 04-08-2024 Bamboo flowsheet Tonya Brink [facility] Start: 04-08-2024 End: 04-08-2024 Bamboo flowsheet Tonya Brink [facility] Start: 04-08-2024 End: 04-08-2024 ambulatory Tonya Brink [facility] Comment on above: Tear of right rotato r cuff, unspecified tear extent, unspecified whether traumatic (Primary Dx) Start: 04-06-2024 End: 04-06-2024 Bamboo flowsheet Tonya Brink [facility] Start: 04-06-2024 End: 04-06-2024 Bamboo flowsheet Tonya Zhangink [facility] Start: 04-06-2024 End: 04-06-2024 ambulatory Tonya Zhangink [facility] Comment on above: Tear of right rotato r cuff, unspecified tear extent, unspecified whether traumatic (Primary Dx) Start: 04-03-2024 End: 04-03-2024 Bamboo flowsheet Tonya Brink [facility] Start: 04-03-2024 End: 04-03-2024 Bamboo flowsheet Tonya Brink [facility] Start: 04-03-2024 End: 04-03-2024 ambulatory Tonya Zhangink [facility] Comment on above: Tear of right rotato r cuff, unspecified tear extent, unspecified whether traumatic (Primary Dx) Start: 03-31-2024 End: 03-31-2024 Bamboo flowsheet Tonya Zhangink [facility] Start: 03-31-2024 End: 03-31-2024 Bamboo flowsheet Tonya Bass [facility] Start: 03-31-2024 End: 03-31-2024 ambulatory Tonya Bass [facility] Comment on above: Tear [...] 03-25-2024 End: 03-25-2024 Bamboo flowsheet Anuja Mattsony [facility] Start: 03-25-2024 End: 03-25-2024 Bamboo flowsheet Anuja Mattsony [facility] Start: 03-25-2024 End: 03-25-2024 ambulatory Anuja Craft [facility] Comment on above: Tear of right rotato r cuff, unspecified tear extent, unspecified whether traumatic (Primary Dx) Start: 03-23-2024 End: 03-23-2024 Bamboo flowsheet Tonya Bass [facility] Start: 03-23-2024 End: 03-23-2024 Bamboo flowsheet Tonya Bass [facility] Start: 03-23-2024 End: 03-23-2024 ambulatory Tonya Bass [facility] Comment on above: Tear of right rotato r cuff, unspecified tear extent, unspecified whether traumatic (Primary Dx) Start: 03-16-2024 End: 03-16-2024 Bamboo flowsheet Tonya Bass [facility] Start: 03-16-2024 End: 03-16-2024 Bamboo flowsheet Tonya Bass [facility] Start: 03-16-2024 End: 03-16-2024 ambulatory Tonya Bass [facility] Comment on above: Tear of right rotato r cuff, unspecified tear extent, unspecified whether traumatic (Primary Dx) Start: 03-13-2024 End: 03-13-2024 Bamboo flowsheet Anish Aragon [facility] Start: 03-13-2024 End: 03-13-2024 Bamboo flowsheet Anish rAagon [facility] Start: 03-13-2024 End: 03-13-2024 ambulatory Anish Aragon [facility] Comment on above: Tear [...] Start: 03-10-2024 End: 03-10-2024 ambulatory MD Al Vega Phone: [facility] Work Phone: Start: 03-10-2024 End: 03-10-2024 Patient encounter procedure MD Al Bowie Work Phone: [facility] Work Phone: Start: 03-09-2024 End: 03-09-2024 Bamboo flowsheet Tonya Brink [facility] Start: 03-09-2024 End: 03-09-2024 Bamboo flowsheet Tonya Brink [facility] Start: 03-09-2024 End: 03-09-2024 ambulatory Tonya Brink [facility] Comment on above: Tear of right rotato r cuff, unspecified tear extent, unspecified whether traumatic (Primary Dx) Start: 03-04-2024 End: 03-04-2024 Bamboo flowsheet Tonya Brink [facility] Start: 03-04-2024 End: 03-04-2024 Bamboo flowsheet Tonya Brink [facility] Start: 03-04-2024 End: 03-04-2024 ambulatory Tonya Brink [facility] Comment on above: Tear of right rotato r cuff, unspecified tear extent, unspecified whether traumatic (Primary Dx) Start: 03-02-2024 End: 03-02-2024 Bamboo flowsheet Tonya Brink [facility] Start: 03-02-2024 End: 03-02-2024 Bamboo flowsheet Tonya Brink [facility] Start: 03-02-2024 End: 03-02-2024 ambulatory Tonya Brink [facility] Comment on above: Tear of right rotato r cuff, unspecified tear extent, unspecified whether traumatic (Primary Dx) Start: 02-28-2024 End: 02-28-2024 Bamboo flowsheet Halley Thao PT [facility] Start: 02-28-2024 End: 02-28-2024 Bamboo flowsheet Halley Thao PT [facility] Start: 02-28-2024 End: 02-28-2024 ambulatory Halley Thao PT [facility] Comment on above: Tear of right rotato r cuff, unspecified tear extent, unspecified whether traumatic (Primary Dx) Start: 02-26-2024 End: 02-26-2024 Bamboo flowsheet Tonya Brink [facility] Start: 02-26-2024 End: 02-26-2024 Bamboo flowsheet Tonya Brink [facility] Start: 02-26-2024 End: 02-26-2024 ambulatory Tonya Brink [facility] Comment on above: Tear of right rotato r cuff, unspecified tear extent, unspecified whether traumatic (Primary Dx) Start: 02-24-2024 End: 02-24-2024 Bamboo flowsheet Tonya Brink [facility] Start: 02-24-2024 End: 02-24-2024 Bamboo flowsheet Tonya Brink [facility] Start: 02-24-2024 End: 02-24-2024 ambulatory Tonya Brink [facility] Comment on above: Tear of right rotato r cuff, unspecified tear extent, unspecified whether traumatic (Primary Dx) Start: 02-19-2024 End: 02-19-2024 ambulatory Tonya Brink [facility] Comment on above: Tear of right rotato r cuff, unspecified tear extent, unspecified whether traumatic (Primary Dx) Start: 02-18-2024 End: 02-19-2024 ambulatory Tonya Brink [facility] Comment on above: Tear of right rotato r cuff, unspecified tear extent, unspecified whether traumatic (Primary Dx) Start: 02-18-2024 End: 02-18-2024 Bamboo flowsheet Tonya Brink [facility] Start: 02-18-2024 End: 02-18-2024 Bamboo flowsheet Tonya Brink [facility] Start: 02-14-2024 End: 02-14-2024 Bamboo flowsheet Tonya Brink [facility] Start: 02-14-2024 End: 02-14-2024 Bamboo flowsheet Tonya Brink [facility] Start: 02-14-2024 End: 02-14-2024 ambulatory Tonya Brink [facility] Comment on above: Tear of right rotato r cuff, unspecified tear extent, unspecified whether traumatic (Primary Dx) Start: 02-12-2024 End: 02-12-2024 Bamboo flowsheet Tonya Zhangink [facility] Start: 02-12-2024 End: 02-12-2024 Bamboo flowsheet Tonya Bass [facility] Start: 02-12-2024 End: 02-12-2024 ambulatory Tonya Bass [facility] Comment on above: Tear of right rotato r cuff, unspecified tear extent, unspecified whether traumatic (Primary Dx) Start: 02-06-2024 End: 02-06-2024 Bamboo flowsheet Tonya Zhangink [facility] Start: 02-06-2024 End: 02-06-2024 Bamboo flowsheet Tonya Bass [facility] Start: 02-06-2024 End: 02-06-2024 ambulatory Tonya Bass [facility] Comment on above: Tear [...] 01-28-2024 ambulatory MD Al Bowie Work Phone: [facility] Work Phone: Start: 01-28-2024 End: 01-28-2024 Patient encounter procedure MD Al Bowie Work Phone: [facility] Work Phone: Start: 12-24-2023 End: 12-24-2023 ambulatory MD Al Bowie Work Phone: [facility] Work Phone: Start: 12-24-2023 End: 12-24-2023 Patient encounter procedure MD Al Bowie Work Phone: [facility] Work Phone: Start: 12-24-2023 End: 12-24-2023 Patient encounter procedure MD Al Bowie Work Phone: [facility] Start: 12-24-2023 End: 12-24-2023 ambulatory MD Al Bowie Work Phone: [facility] Work Phone: Start: 12-23-2023 End: 12-23-2023 ambulatory ANISH MAHESH Not Available Start: 12-19-2023 End: 12-19-2023 ambulatory HALLEY THAO Not Available Start: 12-18-2023 End: 12-18-2023 Admission to same day surgery center MD Al Bowie Work Phone: [facility] [place] Start: 12-18-2023 End: 12-18-2023 ambulatory MD Al Bowie Work Phone: [facility] Work Phone: Start: 12-17-2023 Non-patient / Non-visit MD Arnol Bowie Work Phone: [facility] Work Phone: Start: 12-11-2023 End: 12-11-2023 ambulatory MD Al Bowie Work Phone: [facility] Work Phone: Start: 12-11-2023 End: 12-11-2023 Departed Referred MD Al Bowie Work Phone: [facility] [place] Start: 12-03-2023 End: 12-03-2023 ambulatory MD Al Bowie Work Phone: [facility] Work Phone: Start: 12-03-2023 End: 12-03-2023 Patient encounter procedure MD Al Bowie Work Phone: [facility] Work Phone: Start: 11-27-2023 End: 11-27-2023 ambulatory MD Al Bowie Work Phone: [facility] Work Phone: Start: 11-27-2023 End: 11-27-2023 Patient encounter procedure MD Al Bowie Work Phone: [facility]Pre-Surgical Testing Work Phone: Start: 10-29-2023 End: 10-29-2023 Patient encounter procedure Doug MCDANIEL [facility] Start: 10-01-2023 End: 10-01-2023 ambulatory MD Al Bowie Work Phone: [facility] Work Phone: Start: 10-01-2023 End: 10-01-2023 Patient encounter procedure MD Al Boiwe Work Phone: [facility] Work Phone: Start: 09-26-2023 End: 09-26-2023 ambulatory MD Al Bowie Work Phone: [facility] Work Phone: Start: 09-26-2023 End: 09-26-2023 Patient encounter procedure MD Al Bowie Work Phone: [facility] [address] Work Phone: Start: 08-19-2023 End: 08-19-2023 ambulatory [facility] Work Phone: Start: 08-19-2023 End: 08-19-2023 Patient encounter procedure [facility] Work Phone: Start: 07-29-2023 End: 07-29-2023 Patient encounter procedure [facility] Work Phone: Start: 05-09-2023 End: 05-09-2023 ambulatory Heavenly Sweetie Other [employer] Other Start: 05-09-2023 Office outpatient vi sit 15 minutes Heavenly Sweetie [facility] Start: 01-08-2023 End: 01-08-2023 Lab Drop off Al Bowie [facility] Start: 12-13-2022 End: 12-13-2022 ambulatory PHYSICIAN [facility] Work Phone: Start: 12-13-2022 End: 12-13-2022 Patient encounter procedure PHYSICIAN [facility] Start: 11-13-2022 End: 11-13-2022 Patient encounter procedure Doug MCDANIEL [facility] Start: 10-26-2022 End: 10-26-2022 Patient encounter procedure Doug MCDANIEL [facility] Start: 09-27-2022 Encounter for preprocedural laboratory examination DR FAREED RODRIGES . [facility] Start: 09-27-2022 End: 09-28-[address] FAREED RODRIGES . Facility:[facility]1 Start: 09-24-2022 End: 09-25-[address] FAREED RODRIGES . Facility:[facility] Start: 09-24-2022 End: 09-25-2022 Encounter for preprocedural laboratory examination DR FAREED RODRIGES . Facility:[facility] Start: 09-17-2022 Encounter for preprocedural cardiovascular examination DR FAREED RODRIGES . [facility] Start: 09-13-2022 End: 09-14-[address] FAREED RODRIGES . Facility:[facility]1 Start: 08-27-2022 End: 08-28-[address] FAREED RODRIGES . Facility:[facility] Start: 08-20-2022 Office outpatient ne w 30 minutes Janna Berger [facility] Start: 08-20-2022 End: 08-20-2022 ambulatory PHYSICIAN [facility] Work Phone: Start: 08-20-2022 End: 08-20-2022 Patient encounter procedure PHYSICIAN [facility] Start: 08-07-2022 End: 08-07-2022 ambulatory PHILLIP EASTERWOOD Facility:[facility]1 Start: 09-14-2021 End: 09-14-2021 ambulatory Phillip Easterwood Other [employer] Other Start: 09-14-2021 Office outpatient vi sit 15 minutes Phillip Easterwood [facility] Start: 08-17-2021 End: 08-17-2021 ambulatory Phillip Easterwood Other [employer] Other Start: 08-17-2021 Office outpatient vi sit 25 minutes [facility] Procedures Date Procedure Procedure Detail Performing Clinician Start: 12-09-2024 IGP,APTIMA HPV,AGE GDLN Eduarda CISNEROS Work Phone: Start: 12-02-2024 Screening mammograph y of bilateral breasts Al Bowie MD Work Phone: Start: 11-18-2024 Cystoscopy Doug JONES Start: 12-24-2023 Plain X-ray of right shoulder MD Al Bowie Work Phone: Start: 12-18-2023 Procedure on shoulder joint MD Al Bowie Work Phone: Start: 10-29-2023 Cystourethroscopy wi th dilation of urethral stricture [...] Doug MCDANIEL Ligation of fallopian tube P darcie MCDANIEL Plan of Treatment Date Care Activity Detail Author Start: 12-13-2025 End: 12-13-2025 Patient encounter procedure 12/13/2025 2:00 PM EDT Procedure Visit [facility] [address] [place] [address] Eduarda Thayer PA [address] [facility] [address] [facility] [address] [place], [facility] OB Start: 12-09-2024 End: 06-11-2025 US Pelvis US Pelvis w/ TV Imaging Routine Pelvic pain in female Expected: 12/09/2024, Expires: 06/11/[address] [facility] Comment on above: Expected: 12/09/2024 , Expires: 06/11/2025 Start: 12-09-2024 End: 12-09-2024 Patient encounter procedure 12/09/2024 1:00 PM EDT Office Visit [facility] OB [address] [facility] [address] [address] Eduarda Thayer PA [address] [facility] [address] [place] [address] Arrived [facility] Comment on above: Arrived Start: 11-16-2024 End: 11-16-2024 Patient encounter procedure 11/16/2024 2:00 PM EDT Office Visit [facility] [address] [facility] [address] [phone] Fareed Rodriges DO [address] [facility] [address] [place] [address] [facility] Start: 06-23-2024 End: 06-23-2024 ambulatory 06/23/2024 2:30 PM EST Treatment [facility] [address] [facility] [address] [place] [address] Halley Thao, PT [facility] Start: 06-18-2024 End: 06-18-2024 ambulatory 06/18/2024 9:00 AM EST Treatment [facility] [address] [place] [address] Halley Thao, PT [facility] Start: 06-16-2024 End: 06-16-2024 ambulatory 06/16/2024 9:00 AM EST Treatment [facility] [address] [facility] [address] [place] [address] Tonya Bass, CARBON CUTTER [facility] Start: 06-11-2024 End: 06-11-2024 ambulatory 06/11/2024 9:00 AM EST Treatment [facility] [address] [place] [address] Halley Thao, PT [facility] Start: 06-09-2024 End: 06-09-2024 ambulatory 06/09/2024 9:00 AM EST Treatment [facility] [address] [place] [address] Tonya Bass, CARBON CUTTER [facility] Start: 06-04-2024 End: 06-04-2024 ambulatory 06/04/2024 9:00 AM EST Treatment [facility] [address] [place] [address] Tonya Bass, CARBON CUTTER [facility] Start: 06-01-2024 End: 06-01-2024 ambulatory 06/01/2024 9:00 AM EST Treatment [facility] [address] [place] [address] Tonya Bass, CARBON CUTTER [facility] Start: 05-22-2024 End: 05-22-2024 ambulatory 05/22/2024 10:00 AM EST Treatment [facility] [address] [place] [address] Tonya Bass, CARBON CUTTER [facility] Start: 05-18-2024 End: 05-18-2024 ambulatory 05/18/2024 10:00 AM EST Treatment [facility] [address] [place] [address] Tonya Bass, CARBON CUTTER [facility] Start: 05-15-2024 End: 05-15-2024 ambulatory 05/15/2024 2:30 PM EST Treatment [facility] [address] [place] [address] Anuja Craft, CARBON CUTTER [facility] Start: 05-13-2024 End: 05-13-2024 [...] [address] [place] [address] Halley Thao, PT [facility] Start: 05-04-2024 End: 05-04-2024 ambulatory 05/04/2024 2:30 PM EST Treatment [facility] [address] [facility] [address] [place] [address] Tonya Bass, CARBON CUTTER [facility] Start: 05-01-2024 End: 05-01-2024 ambulatory 05/01/2024 2:30 PM EST Treatment [facility] [address] [facility] [address] [place] [address] Anish Aragon, CARBON CUTTER [facility] Start: 04-29-2024 End: 04-29-2024 ambulatory [facility] Comment on above: Tear of right rotato r cuff, unspecified tear extent, unspecified whether traumatic (Primary Dx) Start: 04-27-2024 End: 04-27-2024 ambulatory 04/27/2024 9:00 AM EST Treatment [facility] [address] [facility] [address] [place] [address] Anish Aragon, CARBON CUTTER [facility] Start: 04-22-2024 End: 04-22-2024 ambulatory 04/22/2024 10:00 AM EST Treatment [facility] [address] [facility] [address] [place] [address] Tonya Bass, CARBON CUTTER [facility] Start: 04-20-2024 End: 04-20-2024 ambulatory [facility] Start: 04-17-2024 End: 04-17-2024 ambulatory 04/17/2024 9:30 AM EST Treatment [facility] [address] [facility] [address] [place] [address] Halley Thao, PT [facility] Start: 04-15-2024 End: 04-15-2024 ambulatory 04/15/2024 9:30 AM EST Treatment [facility] [address] [facility] [address] [place] [address] Tonya Bass, CARBON CUTTER [facility] Start: 04-13-2024 End: 04-13-2024 ambulatory [facility] Start: 04-10-2024 End: 04-10-2024 ambulatory 04/10/2024 9:00 AM EST Treatment [facility] [address] [place] [address] Halley Thao, PT [facility] Start: 04-08-2024 End: 04-08-2024 ambulatory 04/08/2024 10:00 AM EST Treatment [facility] [address] [facility] [address] [place] [address] Tonya Bass, CARBON CUTTER [facility] Start: 04-06-2024 End: 04-06-2024 ambulatory 04/06/2024 10:00 AM EST Treatment [facility] [address] [facility] [address] [place] [address] Tonya Bass, CARBON CUTTER [facility] Start: 04-03-2024 End: 04-03-2024 ambulatory 04/03/2024 9:00 AM EST Treatment [facility] [address] [facility] [address] [place] [address] Tonya Bass, CARBON CUTTER [facility] Start: 03-31-2024 End: 03-31-2024 ambulatory [facility] Comment on above: Arrived Start: 03-27-2024 End: 03-27-2024 ambulatory [facility] Start: 03-25-2024 End: 03-25-2024 ambulatory [facility] Start: 03-23-2024 End: 03-23-2024 ambulatory [facility] Comment on above: Arrived Start: 03-20-2024 End: 03-20-2024 ambulatory 03/20/2024 9:30 AM EDT Treatment [facility] [address] [facility] [address] [place] [address] Tonya Bass, CARBON CUTTER [facility] Start: 03-18-2024 End: 03-18-2024 ambulatory 03/18/2024 9:30 AM EDT Treatment [facility] [address] [facility] [address] [place] [address] Tonya Bass, CARBON CUTTER [facility] Start: 03-16-2024 End: 03-16-2024 ambulatory [facility] Comment on above: Arrived Start: 03-13-2024 End: 03-13-2024 ambulatory [facility] Start: 03-11-2024 End: 03-11-2024 ambulatory 03/11/2024 10:30 AM EDT Treatment [facility] [address] [place] [address] Halley Thao, PT [facility] Start: 03-09-2024 End: 03-09-2024 ambulatory [facility] Start: 03-06-2024 End: 03-06-2024 ambulatory 03/06/2024 9:00 AM EDT Treatment [facility] [address] [facility] [address] [place] [address] Halley Thao, PT [facility] Start: 03-04-2024 End: 03-04-2024 ambulatory [facility] Comment on above: Arrived Start: 03-02-2024 End: 03-02-2024 ambulatory [facility] Comment on above: Arrived Start: 02-28-2024 End: 02-28-2024 ambulatory 02/28/2024 9:30 AM EDT Treatment [facility] [address] [facility] [address] [place] [address] Halley Thao, PT [facility] Start: 02-26-2024 End: 02-26-2024 ambulatory 02/26/2024 9:30 AM EDT Treatment [facility] [address] [facility] [address] [place] [address] Tonya Bass, CARBON CUTTER [facility] Start: 02-24-2024 End: 02-24-2024 ambulatory [facility] Comment on above: Arrived Start: 02-21-2024 End: 02-21-2024 ambulatory 02/21/2024 9:30 AM EDT Treatment [facility] [address] [facility] [address] [place] [address] Tonya Bass, CARBON CUTTER [facility] Start: 02-19-2024 End: 02-19-2024 ambulatory 02/19/2024 9:30 AM EDT Treatment [facility] [address] [facility] [address] [place] [address] Tonya Bass CARB[employer] CUTTER [facility] Start: 02-18-2024 End: 02-18-2024 ambulatory 02/18/2024 3:30 PM EDT Treatment [facility] [address] [facility] [address] [place] [address] Tonya Bass CARB[employer] CUTTER [facility] Start: 02-17-2024 End: 02-17-2024 ambulatory 02/17/2024 10:00 AM EDT Treatment [facility] [address] [facility] [address] [place] [address] Tonya Bass CARB[employer] CUTTER [facility] Start: 02-14-2024 End: 02-14-2024 ambulatory [facility] Comment on above: Arrived Start: 02-12-2024 End: 02-12-2024 ambulatory 02/12/2024 9:30 AM EDT Treatment [facility] [address] [facility] [address] [place] [address] Tonya Bass CARB[employer] CUTTER [facility] Start: 02-06-2024 End: 02-06-2024 ambulatory 02/06/2024 10:00 AM EDT Treatment [facility] [address] [facility] [address] [place] [address] Tonya Bass CARB[employer] CUTTER [facility] Start: 12-24-2023 Plain X-ray of right shoulder XR shoulder RT min 2V* [facility] Start: 12-24-2023 XR Shoulder - right Views [facility] Start: 12-18-2023 End: 12-18-2023 [facility] Start: 12-11-2023 Procedure on shoulde r joint OR Shoulder Arthroscopy (Right) [facility] MR Shoulder - right WO contrast [facility] Patient Education Know your Meds [facility] Work Phone: THIN PREP TIS PAP AN D HR HPV DNA THIN PREP TIS PAP AND HR HPV DNA Pathology and Cytology Routine Well woman exam with routine gynecological exam Ordered: 12/09/2024 [facility] [employer] Work Phone: Comment on above: Ordered: 12/09/2024 US Lower extremity vein - bilateral [facility] Immunizations Immunization Date Immunization Notes Care Provider Zoe del rosario 01-24-2012 tetanus toxoid, reduced diphtheria toxoid, and acellular pertussis vaccine, adsorbed Doug MCDANIEL [facility] NEGATED: Highlighted row has not occurred!06-18-2023 influenza virus vaccine, unspecified formulation Doug [employer] [facility] NEGATED: Highlighted row has not occurred!04-09-2023 influenza virus vaccine, unspecified formulation Doug [employer] [facility] NEGATED: Highlighted row has not occurred!02-14-2023 influenza virus vaccine, unspecified formulation Doug [employer] [facility] Payers Date Payer Category Payer Self-pay 2019 Private Health Insurance [id number] 2019 Private Health Insurance [id number] 1977 Unknown [id number] 2.16.84 0.1.183517.3.579.2.593 1977 Unknown [id number] 2.16.84 0.1.286180.3.579.2.593 1977 Unknown [id number] 2.16.84 0.1.101355.3.579.2.593 1977 Unknown [id number] 2.16.84 0.1.020302.3.579.2.593 1977 Unknown [id number] 2.16.84 0.1.707555.3.579.2.593 1977 Unknown [id number] 2.16.84 0.1.290396.3.579.2. 1977 Unknown [id number] 2.16.8 40.1.561196.3.579.2.727 1977 Unknown [id number] 2.16.8 40.1.514428.3.579.2.1258 1977 Unknown [id number] 2.16.84 0.1.495230.3.579.2.1258 1977 Unknown [id number] 2.16.84 0.1.384183.3.579.2.1258 1977 Unknown [id number] 2.16.84 0.1.427522.3.579.2.1258 1977 Unknown [id number] 2.16.84 0.1.379508.3.579.2.1258 1977 Unknown [id number] 2.16.84 0.1.740414.3.579.2.1258 1977 Unknown [id number] 2.16.84 0.1.489369.3.579.2.1258 1977 Unknown [id number] 2.16.84 0.1.482114.3.579.2.1258 1977 Unknown [id number] 2.16.84 0.1.500106.3.579.2.1258 1977 Unknown [id number] 2.16.84 0.1.241668.3.579.2.1258 1977 Unknown [id number] 2.16.84 0.1.992452.3.579.2.1258 1977 Unknown [id number] 2.16.84 0.1.941262.3.579.2.1258 1977 Unknown [id number] 2.16.84 0.1.808870.3.579.2.1258 1977 Unknown [id number] 2.16.84 0.1.037575.3.579.2.1258 1977 Unknown [id number] 2.16.84 0.1.398159.3.579.2.1258 1977 Unknown [id number] 2.16.84 0.1.168371.3.579.2.1258 1977 Unknown [id number] 2.16.84 0.1.267484.3.579.2.1258 1977 Unknown [id number] 2.16.84 0.1.340525.3.579.2.1258 1977 Unknown [id number] 2.16.84 0.1.081727.3.579.2.1258 1977 Unknown [id number] 2.16.84 0.1.199873.3.579.2.1258 1977 Unknown [id number] 2.16.84 0.1.780801.3.579.2.1258 1977 Unknown [id number] 2.16.84 0.1.463517.3.579.2.1258 1977 Unknown [id number] 2.16.84 0.1.925194.3.579.2.1258 1977 Unknown [id number] 2.16.84 0.1.186561.3.579.2.1258 1977 Unknown [id number] 2.16.84 0.1.009296.3.579.2.1258 1977 Unknown [id number] 2.16.84 0.1.432589.3.579.2.1258 1977 Unknown [id number] 2.16.84 0.1.140719.3.579.2.1258 1977 Unknown [id number] 2.16.84 0.1.784041.3.579.2.1258 1977 Unknown [id number] 2.16.84 0.1.939040.3.579.2.1258 1977 Unknown [id number] 2.16.84 0.1.310991.3.579.2.1258 1977 Unknown [id number] 2.16.84 0.1.971167.3.579.2.1258 1977 Unknown [id number] 2.16.84 0.1.630705.3.579.2.1258 1977 Unknown [id number] 2.16.84 0.1.839157.3.579.2.1258 1977 Unknown [id number] 2.16.84 0.1.099571.3.579.2.1258 1977 Unknown [id number] 2.16.84 0.1.787641.3.579.2.1258 1977 Unknown [id number] 2.16.84 0.1.011723.3.579.2.1258 1977 Unknown [id number] 2.16.84 0.1.203632.3.579.2.1258 1977 Unknown [id number] 2.16.84 0.1.840091.3.579.2.1258 1977 Unknown [id number] 2.16.84 0.1.965625.3.579.2.1258 1977 Unknown [id number] 2.16.84 0.1.958545.3.579.2.1258 1959 Private Health Insurance [id number] 2.16.840.1.278885.19 Unknown [id number] 2.16.8 40.1.482032.3.579.2.531 Unknown [id number] 2.16.8 40.1.830323.3.579.2.531 Unknown [id number] 2.16.8 40.1.449491.3.579.2.531 Social History Date Type Detail Facility Unknown if ever smoked [employer] Other Start: 11-14-2022 End: 12-09-2024 [facility] Assigned At [facility] Start: 1975 Sex Assigned At Female [facility] Start: 10-10-2022 End: 11-14-2022 Tobacco smoking status Never smoked tobacco (finding) [facility] Tobacco smoking status Never [facility] Start: 11-13-2023 End: 12-09-2024 Alcoholic beverage intake Lifetime non-drinker (finding) [facility] Start: 11-14-2022 End: 12-09-2024 History of Social function [facility] Start: 11-14-2022 Alcohol Comment Caffeine intak e: 2-3 cups per day [facility] Start: 1975 Sex assigned at Not on file [facility] Start: 09-07-2009 End: 04-14-2024 Sex Female (finding) [facility] Sexual Orientation [facility] Medical Equipment Procedure Code Equipment Code Equipment Origin al Text Equipment Identifier Dates Arthroscopy, shoulder Tendon/ligament bone anchor, bioabsorbable ([id number] [facility] Start: 12-18-2023 Goals Date Patient Goal Desired Activity /State Functional Status Date Assessment Result Facility 11-13-2022 Functional Status N/A [facility] 10-26-2022 Functional Status N/A [facility] Clinical Notes 08-17-2021 to 12-09-2024 AMELIA Jefferson [...] nursing note reviewed. Exam conducted with a dip filler present. Vitals: Estimated body mass index is [...] of: AMELIA Jefferson documented in this encounter [facility] 11-18-2024 Hospital Discharg e instructions Patient Education [...] if anything looks unusual. Females with a idbdke-jcug-zkndjm risk for skin cancer may want to see a skin care instructor (roll up helper) for an annual body check. Where to find more information [place] Cancer Society: cancer.org Centers for Disease Control and Prevention: cdc.gov National Cancer [place]: cancer.gov U.S. Department of Health and Human [...] provider. Document Revised: 05/21/2023 Document Reviewed: 12/03/2022 [email or web address] Patient Education 2023 [employer]. Follow Up Care 10/13/2024 11:41:48 With:JESSICA MORENO, Doug Manuel, URL Address: [facility] [address] , [place] [address] [phone] When: only if needed [facility] 11-18-2024 Note Patient Education Oncology Cancer [...] an earlier a (more content not included)... [facility] 05-18-2024 Telephone encounter Note She had called and lm noting her husbands semi truck broke down and she is needed to assist; cx today. She confirmed her PT 05/22 @ 10:00. [facility] 05-18-2024 Miscellaneous Notes She had called and lm noting her husbands semi truck broke down and she is needed to assist; cx today. She confirmed her PT 05/22 @ 10:00. documented in this encounter [facility] 05-05-2024 History of Presen t illness Narrative Physical Therapy Treatment Visit / UPOC Patient Name: Yokasta Zheng Today's Date: 05/05/2024 Encounter Diagnoses Name Primary? Tear of right rotator cuff, unspecified tear extent, unspecified whether traumatic Yes Visit number: 33 Timed Code Treatment: 30 minutes Total Treatment Time: 30 minutes Time In: 0900 Time Out: 09 History: Pt underwent surgery for right RCR on 12/18/23. States she had one or 2 visits initially after surgery but was then to hold off. Pt was recently seen by and jason was discharged; pt now to begin PT. 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 Ortho [...] instructed in home exercise program. - met Qa Tester Goals: To be met in 10 weeks [...] sign below. Date: documented in this encounter [facility] 04-17-2024 History of Presen t illness Narrative [...] off. Pt was recently seen by and slfarhat was discharged; pt now to begin PT. [...] to be instructed in home exercise program. Assisted Goals: To be met in 10 weeks [...] sign below. Date: documented in this encounter [facility] 04-14-2024 Evaluation note Diagnosis Onset Date Resolution Impingement syndrome of right shoulder acute April 14, 11:21am Right rotator cuff tear acute N ovember 2023 11:21am Right shoulder pain acute Novem minerva 2023 11:21am Other specified postprocedural states noneactive March 272023 11:21am Impingement syndrome of right shoulder acute June 29 10:15am Right rotator cuff tear acute F ebruary 2024 10:15am Right shoulder pain acute Febru ra 2024 10:15am Other specified postprocedural states noneactive June 292024 10:15am [facility] Work Phone: 1(648) 672-236811-15-2024 History of Present illness Narrative* Halley Thao, PT - 04/10/2024 9:00 AM EST Physical Therapy Treatment Visit Patient Name: Yokasta Zheng Today's Date: 04/10/2024 Encounter Diagnoses Name Primary? Tear of right rotator cuff, unspecified tear extent, unspecified whether traumatic Yes Visit number: 23 Timed Code Treatment: 30 minutes Total Treatment Time: 30 minutes Time In: 0900 Time Out: 09 History: Pt underwent surgery for right RCR [...] to be instructed in home exercise program. Assisted Goals: To be met in 10 weeks [...] Please sign below. Date: [facility]'[id number] History of Present illness Narrative* Tonya Bass, CARBON CUTTER - 04/08/2024 10:00 AM EST Physical Therapy [...] to be instructed in home exercise program. Qa Tester Goals: To be met in 10 weeks [...] 04/10/2024 1:10 PM EST documented in [facility] John'[id number] History of Present illness Narrative* Tonya Bass, CARBON CUTTER - 04/06/2024 10:00 AM EST Physical Therapy [...] to be instructed in home exercise program. Assisted Goals: To be met in 10 weeks [...] 04/10/2024 1:08 PM EST documented in [facility] John'[id number] History of Present illness Narrative* Halley Thao PT - 03/27/2024 9:30 AM EDT Physical [...] to be instructed in home exercise program. Qa Tester Goals: To be met in 10 weeks [...] Please sign below. Date: documented in [facility] John'[id number] History of Present illness Narrative* Halley Thao PT - 03/11/2024 10:30 AM EDT Physical [...] therapy last 5-6 weeks. Pt also states Dr did not recall telling her to hold [...] to be instructed in home exercise program. Assisted Goals: To be met in 10 weeks [...] Please sign below. Date: documented in [facility] John'[id number] History of Present illness Narrative* Halley Thao, [...] to be instructed in home exercise program. Assisted Goals: To be met in 10 weeks [...] Please sign below. Date: documented in [facility] John'[id number] History of Present illness Narrative* Halley Thao, [...] to be instructed in home exercise program. Qa Tester Goals: To be met in 10 weeks [...] Please sign below. Date: documented in this [facility]09-03-2024 Evaluation note* Diagnosis Onset Date Resolution Status Admit Date Impingement syndrome of righ t shoulder acute January 27, 2 024 9:02am Right rotator cuff tear acute [...] specified postprocedural states noneactive March 272023 11:21am [facility] Work Phone: 1(832) 616-184207-24-2024 Reason for visit Narrative* Rehabilitation - Outpatient (Routine) - Authorized Specialty Diagnoses / Procedures Referred By Contac t Referred To Contact Physical Therapy Diagnoses S/P Right Shoulder arthroscopy w/ supraspinaltus rotator cuff repair; dos 12/18/23 Procedures AL PHYSICAL THERAPY EVALUATION LOW COMPLEX 20 MINS Janna Berger MD [address] [place] [address] Phone: tel: fax: Halley Thao, PT Referral ID Status Reason Start Date Expiration Date V isits Requested Visits Authorized [id number] Authorized 01/30/2024 07/28/20[address] [facility]'[id number] Reason for visit Narrative* Rehabilitation - Outpatient (Routine) - Authorized Specialty Diagnoses / Procedures Referred By Contac t Referred To Contact Physical Therapy Diagnoses S/P Right Shoulder arthroscopy w/ supraspinaltus rotator cuff repair; dos 12/18/23 Procedures AL PHYSICAL THERAPY EVALUATION LOW COMPLEX 20 MINS Janna Berger MD [address] [place] [place] [id number] Phone: tel: fax: Halley Thao, PT Referral ID Status Reason Start Date Expiration Date V isits Requested Visits Authorized [id number] Authorized 01/30/2024 05/26/[address] [id number] Hospital Discharge instructions Patient Education 10/29/2023 09:29:39 [...] degrees. Follow Up Care 09/12/2023 14:32:51 With:Doug MCDANIEL Address: [address] [place], [place] [address]- Business (1) When: Unknown Comments:Call for any problems. [facility]12-14-2023 Evaluation note* Encounter Date Diagnosis Assessment [...] in the office today and providing supervision. [employer] Other 07-20-2023 History general Narrative - Reported* Type Description Date Medical History Vascular disorder- u nknown but treated by vascular currently Medical History chronic otitis media of right side 12/13- [place] [facility] [place] Medical History varicose veins BLE Medical History Post-operative state Surgical History appendectomy 1989 Surgical History danette in upper left arm 2003 Surgical History varicose vein stripping-left le g 2020 Surgical History uterine ablation September 2020 Surgical History hysterectomy September 2022 Surgical History bladder tumor removed September 2022 Hospitalization History see above [employer] Other 06-20-2023 Hospital Discharge instructions Patient Education [...] With:Doug MCDANIEL Address: [facility] [address], [place] [address]- Business (1) When: Unknown Comments:Office will call to schedule follow up [facility]06-02-2023 Hospital Discharge instructions Patient Education 10/26/2022 [...] including vitamins, herbs, eye drops, creams, and gopr-tyh-tmxcrxw medicines. Any problems you or family members [...] provider tells you to take them. Taking jnqw-dkq-tvdzsir medicines, vitamins, herbs, and supplements. Tests You [...] Follow these instructions at home: Medicines Take ablr-pot-haxreyp and prescription medicines only as told by [...] provider. Document Revised: 01/24/2022 Document Reviewed: 12/23/2020 [email or web address] Patient Education 2022 [employer]. Follow Up Care 10/10/2022 13:17:12 With:JESSICA MORENO, Doug Manuel, URL Address: [facility] [address], [place] [address]- When: Unknown [facility] 05-04-2023 NoteOPERATIVE NOTE OPERATION DATE: 09/27/2022 PROCEDURE: Robotic assisted laparoscopic hysterectomy. PREOPERATIVE DIAGNOSIS: Menorrhagia, dysmenorrhea, pelvic pain, failed ablation. POSTOPERATIVE DIAGNOSIS: Menorrhagia, dysmenorrhea, pelvic pain, failed ablation, bladder tumor noted next to the patient's right ureteral opening. ANESTHESIA: General. SURGEON: Fareed Rodriges D.O. STATISTICAL ANALYST: LANEY Gonzalez URINE OUTPUT: Yellow and clear. [...] awakened by Anesthesia first. Patient tolerated procedure wellThe [facility] [id number] Evaluation note* Encounter Date Diagnosis Assessment Notes [...] the injection well with no adverse reaction. [employer] Other 04-21-2022 Evaluation note* Encounter Date Diagnosis [...] that were not corrected during review process. [employer] Other 03-24-2022 Evaluation note* Encounter Date Diagnosis [...] visit was counseling done by myself, Phillip J Easterwood TYPER-C. *Progress note was completed with the assistance of voice recognition software for dictation purposes. Please excuse any grammatical errors that were not corrected during review process. [employer] Other Evaluation + Plan note Future Appointments Appointment Date:11/06/2022 10:00:00 AM Scheduled Provider: Location:[facility] Appointment Type:Urology CALL PAT FT Appointment Date:11/13/2022 09:15:00 AM Scheduled Provider: Location:[facility] Appointment Type:Urology FT Appointment Date:01/08/2023 01:00:00 PM Scheduled Provider:Al Bowie MD Location:[facility] Appointment Type: [facility] evaluation + Plan note Future Appointments Appointment Date:01/08/2023 01:00:00 PM Scheduled Provider:Al Bwoie MD [facility] Future Appointments Appointment Date:04/09/2023 01:00:00 PM Scheduled Provider:Al Bowie MD Location:[facility] assessment information available [facility] Work Phone: evaluation note* Diagnosis Onset Date Resolution Status Varicose veins of both lower extremities acute Impingement syndrome of right shoulder acute Internal derangement of right shoulder acute Right shoulder pain acute [facility] Work Phone: Evaluation note* Diagnosis Onset Date Resolution Status Varicose veins of both lower extremities acute Impingement syndrome of right shoulder acute Internal derangement of right shoulder acute Right shoulder pain acute Impingement syndrome of right shoulder acute Right rotator cuff tear acut e Right shoulder pain acute [facility] Work Phone: Evaluation note* Diagnosis Onset Date Resolution Status Impingement syndrome of right shoulder acute Right rotator cuff tear acut e Right shoulder pain acute [facility] Work Phone: Evaluation note* Diagnosis Onset Date Resolution Status Impingement syndrome of right shoulder acute Right rotator cuff tear acut e Right shoulder pain acute Impingement syndrome of right shoulder acute Right rotator cuff tear acut e Right shoulder pain acute [facility] Work Phone: Evaluation note* Diagnosis Onset Date Resolution Status Impingement syndrome of right shoulder acute Right rotator cuff tear acut e Right shoulder pain acute Impingement syndrome of right shoulder acute Right rotator cuff tear acut e Right shoulder pain acute Impingement syndrome of right shoulder acute Right rotator cuff tear acut e Right shoulder pain acute Other specified postprocedural states noneactive [facility] Work Phone: Evaluation note* Diagnosis Onset Date [...] pain acute Other specified postprocedural states noneactive [facility] Work Phone: Evaluation note* Diagnosis Tear of right rotator cuff, unspecified tear extent, unspecified whether traumatic- Primary [facility] Diagnosis Tear of right rotator cuff, unspecified tear extent, unspecified whether traumatic- Primary documented in this encounter [facility]* Diagnosis Tear of right rotator cuff, unspecified tear extent, unspecified whether traumatic- Primary documented in this encounter [facility]Evaluation note* Diagnosis Tear of right rotator cuff, unspecified tear extent, unspecified whether traumatic- Primary documented in this encounter [facility] Healthcare[facility]* Diagnosis Onset Date Resolution Status [...] pain acute Other specified postprocedural states noneactive [facility] Work Phone: Evaluation note* Diagnosis Tear of [...] whether traumatic- Primary documented in this encounter [facility] note* Diagnosis Tear of right rotator cuff, unspecified tear extent, unspecified whether traumatic- Primary documented in this encounter [facility]* Diagnosis Tear of right rotator cuff, unspecified tear extent, unspecified whether traumatic- Primary [facility] Diagnosis Tear of right rotator cuff, unspecified tear extent, unspecified whether traumatic- Primary documented in this encounter [facility]* Diagnosis Well woman exam with routine gynecological exam Routine gynecological examination Breast cancer screening by mammogram H/O: hysterectomy Acquired absence of both cervix and uterus Pelvic pain in female Unspecified symptom associated with female genital organs Anxiety, generalized documented in this encounter [facility] HealthcareHistory general Narrative - Reported* Type Description Date Medical History Vascular disorder- u nknown but treated by vascular currently Medical History chronic otitis media of right side 12/13- [place] [facility] [place] Medical History varicose veins BLE Medical History Post-operative state Surgical History appendectomy 1989 Surgical History danette in upper left arm 2003 Surgical History varicose vein stripping-left le g 2020 Surgical History uterine ablation September 2020 Hospitalization History see above [employer] Other Hospital course Narrative No data available for this section [facility] Hospital Discharge instructions No data available for this section [facility] Additional Instructions HERE ARE [...] in ONE week for re-evaluation. 2. Call [phone] for further questions.[facility] Work Phone: Progress note No data available for this section [facility] reason for referral (narrative)No reason for referral information availableMer[facility] Work Phone: Chief Complaint and Reason for [...] December 02, 2024 9:08a m Advance Directives No Advanced Directives Records Found Advance Directive Response Recorded Date/ Time Advance Directives No August 20, 2 023 6:00pm Advance Directive Response Recorded Date/ Time Advance Directives No October 06 9:39am Advance Directive Response Recorded Date/ Time Advance Directives No August 20, 2 023 5:00pm Summary Purpose Family History No Family History Records Found Relationship Condition Age at Onset Recorded Date/T [...] content) Specialty Diagnoses / Procedures Referred By Contac t Referred To Contact Physical Therapy Diagnoses S/P Right Shoulder arthroscopy w/ supraspinaltus rotator cuff repair; dos 12/18/23 Procedures AL PHYSICAL THERAPY EVALUATION LOW COMPLEX 20 MINS Janna Berger MD [address] [place] [address] Halley Thao PT Referral ID Status Reason Start Date Expiration Date V isits Requested Visits Authorized [id number] Authorized 01/30/2024 07/28/2024 38 38 Reason Onset [...] 29, 2023 End: July 29, 2023 Al Bwoie MD Primary Care Provide r, Referring Provider [...] 2024 Referral Self Attending Provider Active Start: J austin 2024 End: December 02, 2024 Goals (unrecognized section and content) Goals may be documented in a n alternate section INFORMATION SOURCE (unrecogn ized section and content) DATE CREATED AUTHOR 10/08/2022 [facility] DATE CREATED AUTHOR AUTHOR'S ORGANIZ ATION 11/20/2024 [facility] DATE CREATED AUTHOR AUTHOR'S ORGANIZ ATION 12/12/2024 [facility] DATE CREATED AUTHOR AUTHOR'S ORGANIZ ATION 12/13/2024 [facility] dical Specialists [facility] FOR RECORDS PERTAINING TO PATIENTS WHO ARE [...] BE BASED ON THE PRIMARY CLINICAL RECORDS. [employer] [facility]. provides no warranty or guarantee of the accuracy or completeness of information in this document.
== END 2024-12-21 09:53 | disposition home or self-care (01) ==
LOC: US 09:53
PROVIDERS: PCP Family Medicine; Visit Provider Obstetrics & Gynecology
DX: R10.2 Pelvic and perineal pain (principal); Z00.00 Encounter for general adult medical examination without abnormal findings
CPT/HCPCS: 36415; 76830; 76856; 80053; 82465; 83036; 84443; 85025

== ENCOUNTER 2024-12-21 10:51 | Outpatient (OUT) | payer OTHER, SELFPAY ==
--- OUTSIDE RECORDS SUMMARY | 2024-12-09 13:00 | XMS_ITS | Encounter Summary ---
Author Organization [facility] Address [address] [place] [address] Care Team Providers Care Progress Clerk Name Role Phone Unavailable Primary Care Provider Unavailabl e Reason for Visit * Reason Comments Gynecologic Exam Encounter Details Date Type Department Care Team (Late st Contact Info) Description 12/09/2024 1:00 PM EDT Office Visit [facility] [address] [place] [address] Eduarda Paul PA [address] [place], [facility] Well woman exam with routine gynecological exam; [...] nursing note reviewed. Exam conducted with a theology teacher present. Vitals: Estimated body mass index [...] EDT Procedure Visit [facility] [address] [place] [address] Eduarda Paul PA [address] [place] [address] Scheduled Orders Name Type Priority Associated Diagnoses [...]
--- OUTSIDE RECORDS SUMMARY | 2024-12-21 09:53 | XMS_ITS | Continuity of Care Document ---
Author Name [facility] Organization [facility] Care Team Providers Care Textile Engraver Name Role Phone [facility] Unavailable Unavailable Social History Combined list of available smoking, tobacco, and other social history from Department of Defense and Veterans Affairs facilities. Social History Type Response Date Comment Sourc e This section is an empty social history section. DoD
--- OUTSIDE RECORDS SUMMARY | 2024-12-21 10:53 | XMS_ITS | Encounter Summary ---
Author Organization [facility] Address [address] [place] [address] Care Team Providers Care Black Leather Buffer Name Role Phone Unavailable Primary Care Provider Unavailabl e Encounter Details Date Type Department Care Team (Late Contact Info) Description 12/16/2024 Orders Only [facility] [address] [place] [address] [place] [address] Bibiana Lombardo LPN [address] [place] [address] Social History Tobacco Use Types Packs/Day Years [...] EDT Procedure Visit [facility] [address] [place] [address] Eduarda Paul PA [address] [place], [facility]11 documented as of this encounter Procedures Procedure [...]
--- OUTSIDE RECORDS SUMMARY | 2024-12-21 10:54 | XMS_ITS | Encounter Summary ---
Author Organization [facility] Address [address] [place] [address] Care Team Providers Care Case Making Machine Operator Name Role Phone Unavailable Primary Care Provider Unavailabl e Encounter Details Date Type Department Care Team (Late st Contact Info) Description 12/09/2024 Clinisync Result Encounter [facility] External Department Unsolicited Eduarda Paul, AMELIA [address] [place], [place] [address] Social History Tobacco Use Types Packs/Day Years [...] EDT Procedure Visit [facility] [address] [place] [address] Eduarda Paul PA [address] [place], [place] [address] documented as of this encounter Procedures Procedure Name Priority Date/Time Associated Diagnosis Comments IGP,APTIMA HPV,AGE GDLN Routine 12/09/2024 1:03 PM EDT documented in this encounter Results * IGP,APTIMA HPV,AGE GDLN (12/09/2024 1:03 PM EDT) AGE GDLN ACOG TESTING Note . [facility] Comment: TESTS RESULT FLAG UNITS REF RANGE LAB Clinician Provided Cytology Information Source.............Vagina No. of containers..01 ThinPrep Vial Age Algo ACOG Morelia... 30 FLAG LEGEND: L-Low Normal,H-High Normal,LL-Alert Low,HH-Alert High <-Panic Low,>-Panic High,A-Abnormal,AA-Critical Abnormal Performed at: 01 =G [address] [address] Summer Collazo MD, IGP, APTIMA HPV, RFX 16/18,45 Note . [facility] Comment: TESTS RESULT FLAG UNITS REF RANGE LAB DIAGNOSIS: 02 NEGATIVE FOR INTRAEPITHELIAL LESION OR MALIGNANCY. Specimen adequacy: 02 Satisfactory for evaluation. No endocervical component is identified. Performed by: Marlyn Riggs, Final Expense Agent ([facility]) . Note: Note 02 The Pap [...] <-Panic Low,>-Panic High,A-Abnormal,AA-Critical Abnormal Performed at: [address] [address] Summer Collazo MD, HPV APTIMA Negative Negative [facility] Comment: This nucleic acid amplification test detects fourteen high- risk HPV types (16,18,31,33,35,39,45,51,52,56,58,59,66,68) without differentiation. Performed at: = - [address] [id number] Oyster Picker: Summer Collazo MD, Phone: [phone] Performed at: [address] [id number] Oyster Picker: Summer Collazo MD, Phone: [phone] 12/09/2024 1:03 PM EDT 12/09/2024 3:11 PM EDT Narrative CLINIS[facility] - 12/11/2024 3:09 PM EDT SPATULA-ALONE VAGINA us Eduarda CISNER[facility] LAB BLOOD ORDERABLES Final [facility]ul t [facility] documented in this encounter Visit Diagnoses Not on filedocumented in this encounter
--- OUTSIDE RECORDS SUMMARY | 2024-12-21 10:54 | XMS_ITS | Encounter Summary ---
Author Organization [facility] Address [address] [place] [address] Care Team Providers Care Plate Take Out Worker Name Role Phone Unavailable Primary Care Provider Unavailabl e Encounter Details Date Type Department Care Team (Late Contact Info) Description 11/19/2023 Orders Only [facility] [address] [place] [address] [place] [address] Bibiana Lombardo LPN [address] [place] [address] Social History Tobacco Use Types Packs/Day Years [...] EDT Procedure Visit [facility] [address] [place] [address] Eduarda Paul PA [address] [place], [facility] documented as of this encounter Procedures Procedure [...]
--- OUTSIDE RECORDS SUMMARY | 2024-12-21 10:54 | XMS_ITS | Clinical Summary ---
Author Organization [facility] Address [address] [facility] [place] [address] Care Team Providers Care Form Press Operator Name Role Phone Unavailable Primary Care [...] Description 12/16/2024 [place] [address] Bibiana Lombardo, BASIN TENDER 12/11/2024 [place] [address] Moon [place], BASIN TENDER 12/10/2024 [place] [address] Fareed Rodriges, 12/09/2024 1:00 PM ED[place] [address] Eduarda Paul PA Well woman exam with routine gynecological exam; Breast cancer screening by mammogram; H/O: hysterectomy; Pelvic pain in female; Anxiety, generalized 12/09/2024 Clinisync Result Encounter [facility] External Department Unsolicited Eduarda Paul PA 12/09/2024 Bamboo flowsheet [facility] [address] [place] [address] Eduarda Paul PA from Last 3 Months [...] EDT Procedure Visit [facility] [address] [place] [address] Eduarda Paul PA [address] [facility] [place] [address] Procedures Procedure Name Priority Date/Time Associated Diagnosis Comments IGP,APTIMA HPV,AGE GDLN Routine 12/09/2024 1:03 PM EDT PAP SMEAR Routine 12/09/2024 12:00 AM EDT from Last 3 Months Results * IGP,APTIMA HPV,AGE GDLN (12/09/2024 1:03 PM EDT) AGE GDLN ACOG TESTING Note . [facility] Comment: TESTS RESULT FLAG UNITS REF RANGE LAB Clinician Provided Cytology Information Source.............Vagina No. of containers..01 ThinPrep Vial Age Algo ACOG Morelia... 30-65 01 FLAG LEGEND: L-Low Normal,H-High Normal,LL-Alert Low,HH-Alert High <-Panic Low,>-Panic High,A-Abnormal,AA-Critical Abnormal Performed at: 01 =[facility] [address] [place] [address] Summer Collazo MD, IGP, APTIMA HPV, RFX 16/18,45 Note . [facility] Comment: TESTS RESULT FLAG UNITS REF RANGE LAB DIAGNOSIS: 02 NEGATIVE FOR INTRAEPITHELIAL LESION OR MALIGNANCY. Specimen adequacy: 02 Satisfactory for evaluation. No endocervical component is identified. Performed by: Marlyn Riggs, Churn Drill Operator ([facility]) . 02 Note: Note 02 [...] <-Panic Low,>-Panic High,A-Abnormal,AA-Critical Abnormal Performed at: [address] [address] Summer Collazo MD, HPV APTIMA Negative Negative [facility] Comment: This nucleic acid amplification test detects fourteen high- risk HPV types (16,18,31,33,35,39,45,51,52,56,58,59,66,68) without differentiation. Performed at: =[address] [id number] Delivery Rep: Summer Collazo MD, Phone: [phone] Performed at: [address] [id number] Delivery Rep: Summer Collazo MD, Phone: [phone] 12/09/2024 1:03 PM EDT 12/09/2024 3:11 PM EDT Narrative CLINISYNC - 12/11/2024 3:09 PM EDT SPATULA-ALONE VAGINA Eduarda CISNEROS LAB BLOOD ORDERABLES Final Resul t [facility] * Pap Smear (12/09/2024 12:00 AM EDT) Swab Cervical swab / Unknown Zahira Nurse [facility] CYTOLOGY ORDERABLES Final Result EXTERNAL LAB from Last 3 Months Insurance [facility], 1928–1983
--- OUTSIDE RECORDS SUMMARY | 2024-12-21 10:54 | XMS_ITS | Encounter Summary ---
Author Organization [facility] Address [address] [place] [address] Care Team Providers Care Shot Tube Machine Tender Name Role Phone Unavailable Primary Care Provider Unavailabl e Encounter Details Date Type Department Care Team (Late st Contact Info) Description 11/09/2022 Abstract [facility] [address] [place] [address] [place] [address] Fareed Rodriges DO [address] [place], [facility]11 Social History Tobacco Use Types Packs/Day [...] PM EDT Procedure Visit [facility] [address] [place] [address] Eduarda Paul PA [address] [place], [facility]11 documented as of this encounter Visit Diagnoses Not on filedocumented in this encounter
--- OUTSIDE RECORDS SUMMARY | 2024-12-21 10:54 | XMS_ITS | Encounter Summary ---
Author Organization [facility] Address [address] [place] [address] Care Team Providers Care Service Tester Name Role Phone Unavailable Primary Care Provider Unavailabl e Encounter Details Date Type Department Care Team (Late Contact Info) Description 12/10/2024 Abstract [facility] [address] [facility] [place] [address] Fareed Rodriges DO [address] [facility] [address] [place], [place] [address] Social History Tobacco Use Types Packs/Day Years [...] EDT Procedure Visit [facility] [address] [facility] [place] [place] [address] Eduarda Paul PA [address] [facility] [address] [place], [facility]11 documented as of this encounter Visit Diagnoses Not on filedocumented in this encounter
--- OUTSIDE RECORDS SUMMARY | 2024-12-21 10:54 | XMS_ITS | Encounter Summary ---
Author Organization [facility] Address [address] [place] [address] Care Team Providers Care System Software Programmer Name Role Phone Unavailable Primary Care Provider Unavailabl e Encounter Details Date Type Department Care Team (Late st Contact Info) Description 12/11/2024 Telephone [facility] [address] [place] [phone] Moon West LPN [address] [place] [id number] Social History Tobacco Use Types Packs/Day Years [...] Zheng calling back again. My phone numbers [phone] talked to Randa yesterday about my yearly [...] Virgil. Wellness labs were faxed over the [facility]. PVU documented in this encounter Plan of Treatment Upcoming Encounters Date Type Department Care Team (Late st Contact Info) Description 12/13/2025 2:00 PM EDT Procedure Visit [facility] [address] [facility] [place] [address] Eduarda Paul PA [address] [facility] [place] [address] Scheduled Orders Name Type Priority Associated Diagnoses [...]
--- OUTSIDE RECORDS SUMMARY | 2024-12-21 10:54 | XMS_ITS | Encounter Summary ---
Author Organization [facility] Address [address] [place] [address] Care Team Providers Care Hedis Nurse Name Role Phone Unavailable Primary Care Provider Unavailabl e Encounter Details Date Type Department Care Team (Late Contact Info) Description 12/09/2024 Bamboo flowsheet [facility] [address] [facility] [address] [place], [phone] Eduarda Paul PA [address] [place], [place] [address] Social History Tobacco Use Types Packs/Day Years [...] EDT Procedure Visit [facility] [address] [facility] [address] Eduarda Paul PA [address] [facility] [address] [place], [facility]11 documented as of this encounter Visit Diagnoses Not on filedocumented in this encounter
--- OUTSIDE RECORDS SUMMARY | 2024-12-21 10:54 | XMS_ITS | Encounter Summary ---
Author Organization [facility] Address [address] [place] [address] Care Team Providers Care Aeronautical Research Engineer Name Role Phone Unavailable Primary Care Provider Unavailabl e Encounter Details Date Type Department Care Team (Late st Contact Info) Description 11/14/2023 Clinisync Result Encounter [facility] External Department Unsolicited Fareed Rodriges DO [address] [place], [place] [address] Social History Tobacco Use Types Packs/Day Years [...] EDT Procedure Visit [facility] [address] [place] [address] Eduarda Paul PA [address] [place], [place] [address] documented as of this encounter Procedures Procedure Name Priority Date/Time Associated Diagnosis Comments MM TOMOSYNTHESIS SCREENING BI 11/14/2023 9:15 AM EDT documented in this encounter Results * MM TOMOSYNTHESIS SCREENING BI (11/14/2023 9:15 AM EDT) Anatomical Region Laterality Modality Other 11/14/2023 9:15 AM EDT Narrative 11/14/2023 9:16 AM EDT The [address] [address] Mammography Report Signed Patient: LISSA BALLESTEROS MR#: [id number] : 1975 Acct:[id number] Age/Sex: 48 / F ADM Date: 11/13/23 Loc: MAMMO Attending Dr: Fareed Rodriges D.O. Ordering Physician: Fareed Rodriges D.O. Results: Date of Service: 11/13/23 Follow Up: Procedure(s): MM tomosynthesis screening BI Accession Number(s): [id number] cc: Fareed Rodriges D.O.; PREMA HOGAN Patient Name: LISSA BALLESTEROS MR#: [id number] : 1975 Exam Date: 11/13/2023 Ordering Doctor: [...] Treatments None Family Cancers None LOCATION: The [facility] BREAST COMPOSITION: The breasts are heterogeneously dense,which [...] M.D. Signed By: 11/14/23915 DD/ 4 TD/TT: Stroboscope Operator: Procedure Note Radiology, Radiologist, MD - 11/14/2023 [place] [address] Mammography Report Signed Patient: LISSA BALLESTEROS LMR#: [id number] : 1975Acct:[id number] Age/Sex: 48 / FADM Date: 11/13/23 Loc: MAMMO Attending Dr: Fareed Rodriges D.O. Ordering Physician: Fareed Rodriges D.O.Results: Date of Service: 11/13/23Follow Up: Procedure(s): MM tomosynthesis screening BI Accession Number(s): [id number] cc: Fareed Rodriges D.O.; PREMA HOGAN Patient Name: LISSA BALLESTEROS MR#: [id number] : 1975 Exam Date: 11/13/2023 Ordering Doctor: [...] Treatments None Family Cancers None LOCATION: The [facility] BREAST COMPOSITION: The breasts are heterogeneously dense,which [...] Sheldon M.D. Signed By:11/14/23915 DD/ 4 TD/TT: Stroboscope Operator: us Fareed Zahira DO [facility] Final Result documented in this encounter Visit Diagnoses Not on filedocumented in this encounter
[2024-12-21 11:06] LABS: Hematocrit 43.9 % (36.0-48.0); Hemoglobin 14.1 g/dL (12.0-16.0); Immature Granulocytes Abs Auto 0.04 10^3/uL (0.00-0.03); Immature Granulocytes Pct Auto 0.4 % (0.0-0.5); Lymphocytes Absolute Auto 2.5 10^3/uL (1.2-3.8); Mean Corpuscular HGB Conc 32.1 g/dL (29.9-35.2); Mean Corpuscular Hemoglobin 28.7 pg (26.7-34.0); Mean Corpuscular Volume 89.2 fL (81.0-99.0); Platelet Count 202 10^3/uL (150-450); Red Blood Count 4.92 10^6/uL (4.20-5.40); White Blood Count 9.4 10^3/uL (4.0-11.0)
[2024-12-21 12:16] LABS: Alanine Aminotransferase 18 U/L (14-59); Albumin Globulin Ratio 1.1; Albumin Level 3.6 g/dL (3.4-5.0); Alkaline Phosphatase 80 U/L (46-116); Anion Gap 11.6; Aspartate Amino Transferase 14 U/L (15-37); Blood Urea Nitrogen 12.0 mg/dL (7.0-18.0); Calcium 8.7 mg/dL (8.5-10.1); Carbon Dioxide 28.6 mmol/L (21.0-32.0); Chloride 107 mmol/L (98-107); Cholesterol 169 mg/dL (<=200); Estimated GFR (African America >60 (>=60 mL/min/1.73m^2); Estimated GFR (Non-African Ame >60 (>=60 mL/min/1.73m^2); Globulin 3.4 g/dL; Glucose 79 mg/dL (74-106); Potassium 4.2 mmol/L (3.5-5.1); Sodium 143 mmol/L (136-145); Thyroid Stimulating Hormone 2.649 uIU/mL (0.358-3.740); Total Protein 7.0 g/dL (6.4-8.2)
== END 2024-12-21 10:52 | disposition home or self-care (01) ==
LOC: LAB 10:52
PROVIDERS: PCP Family Medicine; Visit Provider Physician Assistant
DX: Z00.00 Encounter for general adult medical examination without abnormal findings (principal)
CPT/HCPCS: 36415; 80053; 82465; 83036; 84443; 85025